=== PATIENT | male | born 1965 | race Caucasian/White ===

== ENCOUNTER 2017-06-22 08:49 | Inpatient (IN) | payer OTHER ==
[2017-06-22 11:16] VITALS: BMI 29.7
--- NOTE | 2017-06-22 12:04 | HP ---
CIWA Score - CIWA Score Nausea/Vomitin Muscle Tremors: 3 Anxiety: 3 Agitation: 2 Paroxysmal Sweats: 1-Minimal Palms Moist Orientation: 0-Oriented Tacttile Disturbances: 2-Mild Itch/Numbness/Burn Auditory Disturbances: 2-Mild Harshness/Frighten Visual Disturbances: 1-Very Mild Sensitivity Headache: 2-Mild CIWA-Ar Total Score: 19 Admission ROS BHS - HPI Chief Complaint: i need help stop drinking alcohol and cocaine Allergies/Adverse Reactions: Allergies Allergy/AdvReac Type Severity Reaction Status Date / Time Fish Containing Products Allergy Severe Swelling Verified 06/22/17 11:27 fluphenazine enanthate Allergy Severe Rash Verified 06/22/17 11:27 [From Prolixin] fluphenazine HCl Allergy Severe Rash Verified 06/22/17 11:27 [From Prolixin] Penicillins Allergy Severe Swelling Verified 06/22/17 11:27 History of Present Illness: this 51 years old male with alcohol and cocaine dependence,seeking detox,never been in detox before seizure last 2 weeks ago multiple medical problem ,iddm,hypercholesterolemia,hypothyroidism,ulcer of right foot for 3 months schizophrenia laceration of right wrist with ulnar nerve and tendon injury Exam Limitations: No Limitations - Ebola screening Have you traveled outside of the country in the last 21 days: No Have you had contact with anyone from an Ebola affected area: No Have you been sick,other than usual withdrawal symptoms: No - Review of Systems Constitutional: Chills, Loss of Appetite, Malaise, Night Sweats, Changes in sleep, Weakness EENT: reports: No Symptoms Reported, Nose Congestion Respiratory: reports: No Symptoms reported Cardiac: reports: No Symptoms Reported GI: reports: Diarrhea, Nausea, Vomiting, Abdominal cramping : reports: No Symptoms Reported Musculoskeletal: reports: Back Pain, Muscle Pain Integumentary: reports: Dryness, Other (ulcer of right foot for 3 months) Neuro: reports: Headache, Tremors Endocrine: reports: No Symptoms Reported Hematology: reports: No Symptoms Reported Psychiatric: reports: No Sypmtoms Reported, Judgement Intact, Mood/Affect Appropiate, Orientated x3, other (schizophrenia) Patient History - Patient Medical History Hx Anemia: No Hx Asthma: No Hx Chronic Obstructive Pulmonary Disease (COPD): No Hx Cancer: No Hx Cardiac Disorders: No Hx Congestive Heart Failure: No Hx Hypertension: Yes (non compliant with meds.) Hx Hypercholesterolemia: Yes (no medication) Hx Seizures: No Hx Diabetes: Yes (IDDM) Hx Gastrointestinal Disorders: No Hx Liver Disease: No Hx Genitourinary Disorders: No Hx Sexually Transmitted Disorders: No Hx Renal Disease (ESRD): No Hx Thyroid Disease: Yes (hypothyroidism non compliance) Hx Hepatitis C: No Hx Depression: Yes Hx Suicide Attempt: Yes (Pt tried to cut his wrist in 2014) Hx Bipolar Disorder: No Hx Schizophrenia: No Other Medical History: no suicidal,no homicidal,laceration of right wrist with tendon and ulnar n - Patient Surgical History Past Surgical History: Yes Other Surgical History: R wrist tendon repair in 2014. - PPD History Previous Implant?: Yes Documented Results: Negative w/o proof Implanted On Prior [facility] Admission?: No - Smoking Cessation Smoking history: Current every day smoker Have you smoked in the past 12 months: Yes Aproximately how many cigarettes per day: 30 Hx Chewing Tobacco Use: No Initiated information on smoking cessation: Yes 'Breaking Loose' booklet given: 06/22/17 - Substance & Tx. History Hx Alcohol Use: Yes Hx Substance Use: Yes Substance Use Type: Alcohol, Cocaine Hx Substance Use Treatment: No - Substances Abused Alcohol Route: Oral Frequency: Daily Amount used: 2-3 pints/ 10-12 beers Age of first use: 16 Date of Last Use: 06/22/17 Cocaine Route: Smoking Frequency: Daily Amount used: $30-40 Age of first use: 16 Date of Last Use: 06/20/17 Family Disease History - Family Disease History Family History: Denies Admission Physical Exam S - Vital Signs Vital Signs: Vital Signs - 24 hr 06/22/17 06/22/17 10:37 11:13 Temperature 97.5 F L 97.7 F Pulse Rate 76 104 H Respiratory 16 18 Rate Blood Pressure 140/72 152/90 - Physical General Appearance: Yes: Moderate Distress, Tremorous, Irritable, Sweating HEENTM: Yes: Normal ENT Inspection, JEANNETTE, Pharynx Normal Respiratory: Yes: Lungs Clear, Normal Breath Sounds, No Respiratory Distress Neck: Yes: Within Normal Limits, Supple, Trachea in good position Breast: Yes: Within Normal Limits Cardiology: Yes: Within Normal Limits, Regular Rhythm, Regular Rate, S1, S2 Abdominal: Yes: Within Normal Limits, Normal Bowel Sounds, Non Tender, Flat, Soft Genitourinary: Yes: Within Normal Limits Back: Yes: Muscle Spasm Musculoskeletal: Yes: Back pain, Muscle Pain Extremities: Yes: Within Normal Limits, Normal Range of Motion, Tremors, Other ( ulcer of right foot size 0.5 cm scar of right wrist and numbnees of right 4th and 5th digit) Neurological: Yes: insurance plan specialist II-XII NML intact, Alert, Motor Strength 5/5 Integumentary: Yes: Dry - Diagnostic (1) Alcohol dependence with uncomplicated withdrawal Current Visit: Yes Status: Acute (2) Cocaine dependence Current Visit: Yes Status: Acute (3) IDDM (insulin dependent diabetes mellitus) Current Visit: Yes Status: Chronic (4) Hypertension Current Visit: Yes Status: Chronic (5) Seizure Current Visit: Yes Status: Chronic (6) Hypercholesteremia Current Visit: Yes Status: Acute (7) Ulcer of right foot Current Visit: Yes Status: Chronic (8) Schizophrenia Current Visit: Yes Status: Chronic (9) Laceration of right wrist Current Visit: Yes Status: Acute Cleared for Admission [facility] - Detox or Rehab [facility] Level of Care: Medically Managed Detox Regimen/Protocol: Librium [facility] Breath Alcohol Content Breath Alcohol Content: 0.027 Urine Drug Screen - Results Drug Screen Negative: Yes Urine Drug Screen Results: OCTAVIO-Cocaine
[2017-06-22] MEDS ORDERED: MAGNESIUM HYDROX 2400MG/30ML ORAL SUSPENSION 30 ML CUP PO PRN (12:20)
[2017-06-22] MEDS ORDERED: MAG HYDROX/AL HYDROX/SIMETH 30 ML UNIT-DOSE CUP PO PRN (12:20)
[2017-06-22] MEDS ORDERED: ACETAMINOPHEN 325 MG TABLET (FP) PO PRN (12:20)
[2017-06-22] MEDS ORDERED: hydrOXYzine PAMOATE 50 MG CAPSULE (FP) PO PRN (12:20)
[2017-06-22] MEDS ORDERED: LOPERAMIDE HCL 2 MG CAPSULE PO PRN (12:20)
[2017-06-22] MEDS ORDERED: chlordiazePOXIDE HCL 25 MG CAPSULE PO PRN (12:20)
[2017-06-22] MEDS ORDERED: MENTHOL/PHENOL 1 EACH UD MM PRN (12:20)
[2017-06-22] MEDS ORDERED: NICOTINE POLACRILEX 2 MG GUM BUC PRN (12:20)
[2017-06-22] MEDS ORDERED: diphenhydrAMINE HCL 50 MG CAPSULE PO PRN (12:20)
[2017-06-22] MEDS ORDERED: MAGNESIUM CITRATE 300 ML BOTTLE PO PRN (12:20)
[2017-06-22] MEDS ORDERED: P-EPHED 60MG/TRIPROLIDI 2.5MG TABLET PO PRN (12:20)
[2017-06-22] MEDS ORDERED: IBUPROFEN 400 MG TABLET (FP) PO PRN (12:20)
[2017-06-22] MEDS ORDERED: guaiFENesin/D-METHORPHAN HB 10 ML UNIT-DOSE CUPS PO PRN (12:20)
[2017-06-22] MEDS ORDERED: chlordiazePOXIDE HCL 25 MG CAPSULE PO ONE (12:50)
[2017-06-22] MEDS: ENALAPRIL MALEATE 10 MG TABLET (FP) PO SCH (13:38)
[2017-06-22] MEDS: LEVOTHYROXINE NA 25 MCG TABLET (FP) PO SCH (13:39)
[2017-06-22] MEDS: BACITRACIN 0.9 GM PACKET TP SCH ×2 (13:39→22:56)
[2017-06-22] MEDS: NICOTINE 21 MG/24 HOURS TOPICAL PATCH TD SCH (13:40)
[2017-06-22] MEDS: chlordiazePOXIDE HCL 25 MG CAPSULE PO SCH ×2 (18:24→22:57)
[2017-06-22] MEDS: INSULIN SLIDING SCALE (NOVOLOG) 1 VIAL SQ SCH ×2 (18:25→22:58)
[2017-06-22] MEDS: THIAMINE HCL 100 MG TABLET (FP) PO SCH (22:57)
[2017-06-22] MEDS: DIVALPROEX SODIUM 500 MG TABLET E.C. PO SCH (22:57)
[2017-06-22] MEDS: INSULIN DETEMIR 100 UNITS/ML MDV SQ SCH (22:59)
[2017-06-22] MEDS ORDERED: INSULIN (NOVOLOG) ASPART 100 UNITS/ML 10ML VIAL ONE (22:59)
[2017-06-23 00:04] LABS: URINE APPEARANCE SLCLOUDY; URINE BILIRUBIN NEGATIVE (NEGATIVE); URINE BLOOD NEGATIVE (NEGATIVE); URINE COLOR YELLOW; URINE GLUCOSE (UA) 1+ (NEGATIVE); URINE KETONE NEGATIVE (NEGATIVE); URINE NITRITE NEGATIVE (NEGATIVE); URINE PROTEIN NEGATIVE (NEGATIVE); URINE UROBILINOGEN NEGATIVE mg/dL (0.2-1.0)
[2017-06-23] MEDS: LEVOTHYROXINE NA 25 MCG TABLET (FP) PO SCH (06:14)
[2017-06-23] MEDS: chlordiazePOXIDE HCL 25 MG CAPSULE PO SCH ×4 (06:15→22:54)
[2017-06-23] MEDS ORDERED: INSULIN (NOVOLOG) ASPART 100 UNITS/ML 10ML VIAL ONE ×3 (08:31→16:56)
[2017-06-23] MEDS: INSULIN SLIDING SCALE (NOVOLOG) 1 VIAL SQ SCH ×4 (08:35→22:55)
[2017-06-23 10:28] LABS: MCH 28.8 pg (25.7-33.7); MCHC 32.4 g/dl (32.0-35.9); MEAN CELL VOLUME 88.9 fl (80-96); MEAN PLT VOLUME 7.9 fl (7.5-11.1); PLATELET COUNT 252 K/MM3 (134-434); WHITE BLOOD COUNT 11.8 K/mm3 (4.0-10.0)
[2017-06-23 10:51] LABS: ALBUMIN 3.1 g/dl (3.4-5.0); ALK PHOS 105 U/L (45-117); ANION GAP 8 (8-16); BILIRUBIN,TOTAL 0.2 mg/dL (0.2-1.0); CALCIUM 8.1 mg/dL (8.5-10.1); CO2 28 mmol/L (21-32); CREATININE 0.8 mg/dL (0.7-1.3); GLUCOSE,RANDOM 203 mg/dL (74-106); SGOT/AST 12 U/L (15-37); SGPT/ALT 38 U/L (12-78); THYROID STIMULATING HORMONE 1.18 uIU/ml (0.358-3.74); TOT PROT 6.9 g/dl (6.4-8.2)
[2017-06-23] MEDS: BACITRACIN 0.9 GM PACKET TP SCH ×2 (10:59→22:53)
[2017-06-23] MEDS: NICOTINE 21 MG/24 HOURS TOPICAL PATCH TD SCH (10:59)
[2017-06-23] MEDS: PRENATAL VITAMINS W/ FOLIC ACID TABLET (FP) PO SCH (11:00)
[2017-06-23] MEDS: ENALAPRIL MALEATE 10 MG TABLET (FP) PO SCH (11:00)
[2017-06-23] MEDS: DIVALPROEX SODIUM 500 MG TABLET E.C. PO SCH ×2 (11:03→22:54)
[2017-06-23 11:51] LABS: URINE LEUK ESTERASE Negative (NEGATIVE)
[2017-06-23] MEDS ORDERED: ONDANSETRON *ODT* 4 MG TABLET SL PRN (11:52)
--- NOTE | 2017-06-23 12:11 | CONSULT ---
[facility] Psychiatric Consult - Data Date of interview: 06/23/17 Admission source: [facility] Identifying data: First admission to [facility] for this 51 y/o male seeking detox treatment on for alcohol and cocaine dependence.Patient is single,a father of one,homeless,unemployed and supported on SSI benefits. Substance Abuse History: Confirmed by patient in this session. Smoking Cessation. Smoking history: Current every day smoker. Have you smoked in the past 12 months: Yes. Aproximately how many cigarettes per day: 30. Hx Chewing Tobacco Use: No. Initiated information on smoking cessation: Yes. 'Breaking Loose' booklet given: 06/22/17. - Substance & Tx. History. Hx Alcohol Use: Yes. Hx Substance Use: Yes. Substance Use Type: Alcohol, Cocaine. Hx Substance Use Treatment: No. - Substances Abused. Alcohol. Route: Oral. Frequency: Daily. Amount used: 2-3 pints/ 10-12 beers. Age of first use: 16. Date of Last Use: 06/22/17. Cocaine. Route: Smoking. Frequency: Daily. Amount used: $30-40. Age of first use: 16. Date of Last Use: 06/20/17 Medical History: Several co-morbidities : GERD,seizure disorder,hypothyroidism, diabetes mellitus,injury to right ulnar nerve (from a suicide attempt in 2014), hypertension,hypercholesterolemia,hearing impediment and chronic foot ulcer ( right fooot). Psychiatric History: Diagnosed with Paranoid Schizophrenia.Medicated with seroquel 200 mg/hs + zoloft and trazodone (doses not recalled by the patient) .Past psychiatric hospitalizations mostly in the state of [place] as per self - report.Mr Richey indicates that he sees a psychiatrist " at a clinic in [place] ".Unable to remember the name of facility.Patient aknowledges a series of suicide attempts through various means (hanging,wrist-cutting,jumping off of a third floor window). Physical/Sexual Abuse/Trauma History: No reported history of abuse. Additional Comment: Urine Drug Screen Results: OCTAVIO-Cocaine.Noted. Mental Status Exam - Mental Status Exam Alert and Oriented to: Time, Place, Person Cognitive Function: Grossly Intact Patient Appearance: Disheveled (covered with tattoos) Mood: Nervous, Withdrawn, Anxious Affect: Mood Congruent Patient Behavior: Sedated (mildly sedated but totally able to provide personal history), Fatigued Speech Pattern: Slurred (but coherent and relevant) Voice Loudness: Normal Thought Process: Goal Oriented Thought Disorder: Not Present Hallucinations: Denies Suicidal Ideation: Denies Homicidal Ideation: Denies Insight/Judgement: Poor Sleep: Poorly, Difficulty falling asleep Appetite: Good Gait/Station: Other (not observed : patient in bed for the entirety of encounter ) Psychiatric Findings - Problem List ([place] 1, 2,3) (1) Schizophrenia Current Visit: Yes Status: Chronic (2) Alcohol dependence with uncomplicated withdrawal Current Visit: Yes Status: Acute (3) Cocaine dependence Current Visit: Yes Status: Acute (4) Nicotine dependence Current Visit: Yes Status: Acute (5) Hypercholesteremia Current Visit: Yes Status: Acute (6) Hypertension Current Visit: Yes Status: Chronic (7) IDDM (insulin dependent diabetes mellitus) Current Visit: Yes Status: Chronic (8) Laceration of right wrist Current Visit: Yes Status: Acute (9) Seizure Current Visit: Yes Status: Chronic (10) Ulcer of right foot Current Visit: Yes Status: Chronic (11) Insomnia Current Visit: Yes Status: Acute - Initial Treatment Plan Initial Treatment Plan: Psychoeducation.Detoxification.Medications : seroquel 100 mg po bid + zoloft 50 mg po daily.Side effects/benefits discussed with the patient.Mr Richey agrees with this careplan.Observation.
--- NOTE | 2017-06-23 15:58 | PN ---
S CIWA - CIWA Score Nausea/Vomitin Muscle Tremors: 4-Moderate,w/Arms Extend Anxiety: 3 Agitation: 0-Normal Activity Paroxysmal Sweats: 3 Orientation: 2-Disoriented Date<2 days Tacttile Disturbances: 0-None Auditory Disturbances: 0-None Visual Disturbances: 0-None Headache: 4-Moderately Severe CIWA-Ar Total Score: 19 BHS Progress Note (SOAP) Subjective: Tremors, Anxious, Sweating, H/A, Body Aches, Interrupted sleep, Diarrhea, Nausea , Stomach Cramping. Objective: PT. A & OX 2 (DISORIENTED ABOUT DAY / DATE). NO ACUTE DISTRESS. 06/23/17 15:59 Vital Signs Temperature 98.8 F 06/23/17 13:30 Pulse Rate 86 06/23/17 13:30 Respiratory Rate 16 06/23/17 13:30 Blood Pressure 144/77 06/23/17 13:30 O2 Sat by Pulse Oximetry (%) Laboratory Tests 06/22/17 06/22/17 06/22/17 11:44 16:30 21:05 WBC RBC Hgb Hct MCV MCH MCHC RDW Plt Count MPV Sodium Potassium Chloride Carbon Dioxide Anion Gap BUN Creatinine Creat Clearance w eGFR POC Glucometer 304 126 156 Random Glucose Calcium Total Bilirubin AST ALT Alkaline Phosphatase Total Protein Albumin TSH Urine Color Urine Appearance Urine pH Ur Specific [place] Urine Protein Urine Glucose (UA) Urine Ketones Urine Blood Urine Nitrite Urine Bilirubin Urine Urobilinogen Ur Leukocyte Esterase RPR Titer 06/22/17 06/23/17 06/23/17 23:20 06:14 08:00 WBC 11.8 H RBC 4.92 Hgb 14.2 Hct 43.7 MCV 88.9 MCH 28.8 MCHC 32.4 RDW 15.0 Plt Count 252 MPV 7.9 Sodium Potassium Chloride Carbon Dioxide Anion Gap BUN Creatinine Creat Clearance w eGFR POC Glucometer 178 Random Glucose Calcium Total Bilirubin AST ALT Alkaline Phosphatase Total Protein Albumin TSH Urine Color Yellow Urine Appearance Slcloudy Urine pH 5.0 Ur Specific [place] >= 1.030 H Urine Protein Negative Urine Glucose (UA) 1+ H Urine Ketones Negative Urine Blood Negative Urine Nitrite Negative Urine Bilirubin Negative Urine Urobilinogen Negative Ur Leukocyte Esterase Negative RPR Titer 06/23/17 06/23/17 06/23/17 08:00 08:00 11:04 WBC RBC Hgb Hct MCV MCH MCHC RDW Plt Count MPV Sodium 139 Potassium 4.0 Chloride 103 Carbon Dioxide 28 Anion Gap 8 BUN 14 Creatinine 0.8 Creat Clearance w eGFR > 60 POC Glucometer 207 Random Glucose 203 H Calcium 8.1 L Total Bilirubin 0.2 AST 12 L ALT 38 Alkaline Phosphatase 105 Total Protein 6.9 Albumin 3.1 L TSH 1.18 Urine Color Urine Appearance Urine pH Ur Specific [place] Urine Protein Urine Glucose (UA) Urine Ketones Urine Blood Urine Nitrite Urine Bilirubin Urine Urobilinogen Ur Leukocyte Esterase RPR Titer Nonreactive LABS NOTED. Assessment: 06/23/17 16:01 WITHDRAWAL SYMPTOMS. Plan: CONTINUE DETOX. INCREASE DAILY PO FLUID INTAKE.
[2017-06-23] MEDS: THIAMINE HCL 100 MG TABLET (FP) PO SCH (22:53)
[2017-06-23] MEDS: QUEtiapine FUMARATE 100 MG TABLET (FP) PO SCH (22:54)
[2017-06-23] MEDS: INSULIN DETEMIR 100 UNITS/ML MDV SQ SCH (22:55)
[2017-06-24] MEDS: chlordiazePOXIDE HCL 25 MG CAPSULE PO SCH ×2 (07:38→10:49)
[2017-06-24] MEDS: LEVOTHYROXINE NA 25 MCG TABLET (FP) PO SCH (07:39)
[2017-06-24] MEDS ORDERED: INSULIN (NOVOLOG) ASPART 100 UNITS/ML 10ML VIAL ONE ×4 (08:15→22:34)
[2017-06-24] MEDS: INSULIN SLIDING SCALE (NOVOLOG) 1 VIAL SQ SCH ×4 (08:21→22:33)
[2017-06-24] MEDS: DIVALPROEX SODIUM 500 MG TABLET E.C. PO SCH ×2 (10:47→22:32)
[2017-06-24] MEDS: PRENATAL VITAMINS W/ FOLIC ACID TABLET (FP) PO SCH (10:47)
[2017-06-24] MEDS: SERTRALINE HCL 50 MG TABLET (FP) PO SCH (10:47)
[2017-06-24] MEDS: ENALAPRIL MALEATE 10 MG TABLET (FP) PO SCH (10:47)
[2017-06-24] MEDS: QUEtiapine FUMARATE 100 MG TABLET (FP) PO SCH ×2 (10:47→22:32)
[2017-06-24] MEDS: NICOTINE 21 MG/24 HOURS TOPICAL PATCH TD SCH (10:47)
[2017-06-24] MEDS: BACITRACIN 0.9 GM PACKET TP SCH ×2 (10:49→22:32)
[2017-06-24] MEDS: chlordiazePOXIDE 5 MG CAPSULE PO SCH ×2 (17:22→22:32)
--- NOTE | 2017-06-24 17:34 | EKG ---
Test Reason : Blood Pressure : / mmHG Vent. Rate : 086 BPM Atrial Rate : 086 BPM P-R Int : 138 ms QRS Dur : 080 ms QT Int : 386 ms P-R-T Axes : 052 -49 008 degrees QTc Int : 461 ms NORMAL SINUS RHYTHM LEFT ANTERIOR FASCICULAR BLOCK ABNORMAL ECG NO PREVIOUS ECGS AVAILABLE REPEAT EKG IF CLINICALLY INDICATED Confirmed by NAYA INNO MD ([id number]) on 06/24/2017 5:34:05 PM Referred By: Confirmed By:NAYA NINO MD
--- NOTE | 2017-06-24 17:34 | PN ---
[facility] CIWA - CIWA Score Nausea/Vomitin-No Nausea/No Vomiting Muscle Tremors: 3 Anxiety: 4-Mod. Anxious/Guarded Agitation: 3 Paroxysmal Sweats: 3 Orientation: 0-Oriented Tacttile Disturbances: 0-None Auditory Disturbances: 0-None Visual Disturbances: 0-None Headache: 0-None Present CIWA-Ar Total Score: 13 BHS Progress Note (SOAP) Subjective: Anxiety,tremors,sweating,interrupted sleep,restless. Objective: 06/24/17 17:33 Vital Signs - 8 hr 06/24/17 13:24 Temperature 97.0 F L Pulse Rate 91 H Respiratory 20 Rate Blood Pressure 128/70 Laboratory Tests 06/22/17 06/22/17 06/22/17 11:44 16:30 21:05 WBC RBC Hgb Hct MCV MCH MCHC RDW Plt Count MPV Sodium Potassium Chloride Carbon Dioxide Anion Gap BUN Creatinine Creat Clearance w eGFR POC Glucometer 304 126 156 Random Glucose Calcium Total Bilirubin AST ALT Alkaline Phosphatase Total Protein Albumin TSH Urine Color Urine Appearance Urine pH Ur Specific [place] Urine Protein Urine Glucose (UA) Urine Ketones Urine Blood Urine Nitrite Urine Bilirubin Urine Urobilinogen Ur Leukocyte Esterase RPR Titer 06/22/17 06/23/17 06/23/17 23:20 06:14 08:00 WBC 11.8 H RBC 4.92 Hgb 14.2 Hct 43.7 MCV 88.9 MCH 28.8 MCHC 32.4 RDW 15.0 Plt Count 252 MPV 7.9 Sodium Potassium Chloride Carbon Dioxide Anion Gap BUN Creatinine Creat Clearance w eGFR POC Glucometer 178 Random Glucose Calcium Total Bilirubin AST ALT Alkaline Phosphatase Total Protein Albumin TSH Urine Color Yellow Urine Appearance Slcloudy Urine pH 5.0 Ur Specific [place] >= 1.030 H Urine Protein Negative Urine Glucose (UA) 1+ H Urine Ketones Negative Urine Blood Negative Urine Nitrite Negative Urine Bilirubin Negative Urine Urobilinogen Negative Ur Leukocyte Esterase Negative RPR Titer 06/23/17 06/23/17 06/23/17 08:00 08:00 11:04 WBC RBC Hgb Hct MCV MCH MCHC RDW Plt Count MPV Sodium 139 Potassium 4.0 Chloride 103 Carbon Dioxide 28 Anion Gap 8 BUN 14 Creatinine 0.8 Creat Clearance w eGFR > 60 POC Glucometer 207 Random Glucose 203 H Calcium 8.1 L Total Bilirubin 0.2 AST 12 L ALT 38 Alkaline Phosphatase 105 Total Protein 6.9 Albumin 3.1 L TSH 1.18 Urine Color Urine Appearance Urine pH Ur Specific [place] Urine Protein Urine Glucose (UA) Urine Ketones Urine Blood Urine Nitrite Urine Bilirubin Urine Urobilinogen Ur Leukocyte Esterase RPR Titer Nonreactive 06/23/17 06/23/17 06/24/17 16:42 21:48 05:53 WBC RBC Hgb Hct MCV MCH MCHC RDW Plt Count MPV Sodium Potassium Chloride Carbon Dioxide Anion Gap BUN Creatinine Creat Clearance w eGFR POC Glucometer 243 238 235 Random Glucose Calcium Total Bilirubin AST ALT Alkaline Phosphatase Total Protein Albumin TSH Urine Color Urine Appearance Urine pH Ur Specific [place] Urine Protein Urine Glucose (UA) Urine Ketones Urine Blood Urine Nitrite Urine Bilirubin Urine Urobilinogen Ur Leukocyte Esterase RPR Titer 06/24/17 06/24/17 11:29 16:34 WBC RBC Hgb Hct MCV MCH MCHC RDW Plt Count MPV Sodium Potassium Chloride Carbon Dioxide Anion Gap BUN Creatinine Creat Clearance w eGFR POC Glucometer 278 249 Random Glucose Calcium Total Bilirubin AST ALT Alkaline Phosphatase Total Protein Albumin TSH Urine Color Urine Appearance Urine pH Ur Specific [place] Urine Protein Urine Glucose (UA) Urine Ketones Urine Blood Urine Nitrite Urine Bilirubin Urine Urobilinogen Ur Leukocyte Esterase RPR Titer labs noted Assessment: 06/24/17 17:34 Withdrawal sx. Plan: Continue detox
[2017-06-24] MEDS: THIAMINE HCL 100 MG TABLET (FP) PO SCH (22:32)
[2017-06-24] MEDS: INSULIN DETEMIR 100 UNITS/ML MDV SQ SCH (22:33)
[2017-06-25] MEDS: LEVOTHYROXINE NA 25 MCG TABLET (FP) PO SCH (06:07)
[2017-06-25] MEDS: chlordiazePOXIDE 5 MG CAPSULE PO SCH ×2 (06:28→10:33)
[2017-06-25] MEDS: INSULIN SLIDING SCALE (NOVOLOG) 1 VIAL SQ SCH ×4 (07:54→22:20)
[2017-06-25] MEDS: PRENATAL VITAMINS W/ FOLIC ACID TABLET (FP) PO SCH (10:31)
[2017-06-25] MEDS: QUEtiapine FUMARATE 100 MG TABLET (FP) PO SCH ×2 (10:31→22:20)
[2017-06-25] MEDS: DIVALPROEX SODIUM 500 MG TABLET E.C. PO SCH ×2 (10:31→22:20)
[2017-06-25] MEDS: ENALAPRIL MALEATE 10 MG TABLET (FP) PO SCH (10:31)
[2017-06-25] MEDS: SERTRALINE HCL 50 MG TABLET (FP) PO SCH (10:31)
[2017-06-25] MEDS: NICOTINE 21 MG/24 HOURS TOPICAL PATCH TD SCH (10:32)
[2017-06-25] MEDS: BACITRACIN 0.9 GM PACKET TP SCH ×2 (10:33→22:19)
--- NOTE | 2017-06-25 11:16 | PN ---
BHS Progress Note (SOAP) Subjective: nausea, sweats, interrupted sleep, anxiety, tremors Objective: 06/25/17 11:15 Vital Signs - 8 hr 06/25/17 06/25/17 06/25/17 03:31 06:22 10:38 Temperature 96.5 F L 98.6 F Pulse Rate 91 H 80 Respiratory 18 18 20 Rate Blood Pressure 125/81 118/73 Laboratory Tests 06/22/17 06/22/17 06/22/17 11:44 16:30 21:05 WBC RBC Hgb Hct MCV MCH MCHC RDW Plt Count MPV Sodium Potassium Chloride Carbon Dioxide Anion Gap BUN Creatinine Creat Clearance w eGFR POC Glucometer 304 126 156 Random Glucose Calcium Total Bilirubin AST ALT Alkaline Phosphatase Total Protein Albumin TSH Urine Color Urine Appearance Urine pH Ur Specific [place] Urine Protein Urine Glucose (UA) Urine Ketones Urine Blood Urine Nitrite Urine Bilirubin Urine Urobilinogen Ur Leukocyte Esterase RPR Titer 06/22/17 06/23/17 06/23/17 23:20 06:14 08:00 WBC 11.8 H RBC 4.92 Hgb 14.2 Hct 43.7 MCV 88.9 MCH 28.8 MCHC 32.4 RDW 15.0 Plt Count 252 MPV 7.9 Sodium Potassium Chloride Carbon Dioxide Anion Gap BUN Creatinine Creat Clearance w eGFR POC Glucometer 178 Random Glucose Calcium Total Bilirubin AST ALT Alkaline Phosphatase Total Protein Albumin TSH Urine Color Yellow Urine Appearance Slcloudy Urine pH 5.0 Ur Specific [place] >= 1.030 H Urine Protein Negative Urine Glucose (UA) 1+ H Urine Ketones Negative Urine Blood Negative Urine Nitrite Negative Urine Bilirubin Negative Urine Urobilinogen Negative Ur Leukocyte Esterase Negative RPR Titer 06/23/17 06/23/17 06/23/17 08:00 08:00 11:04 WBC RBC Hgb Hct MCV MCH MCHC RDW Plt Count MPV Sodium 139 Potassium 4.0 Chloride 103 Carbon Dioxide 28 Anion Gap 8 BUN 14 Creatinine 0.8 Creat Clearance w eGFR > 60 POC Glucometer 207 Random Glucose 203 H Calcium 8.1 L Total Bilirubin 0.2 AST 12 L ALT 38 Alkaline Phosphatase 105 Total Protein 6.9 Albumin 3.1 L TSH 1.18 Urine Color Urine Appearance Urine pH Ur Specific [place] Urine Protein Urine Glucose (UA) Urine Ketones Urine Blood Urine Nitrite Urine Bilirubin Urine Urobilinogen Ur Leukocyte Esterase RPR Titer Nonreactive 06/23/17 06/23/17 06/24/17 16:42 21:48 05:53 WBC RBC Hgb Hct MCV MCH MCHC RDW Plt Count MPV Sodium Potassium Chloride Carbon Dioxide Anion Gap BUN Creatinine Creat Clearance w eGFR POC Glucometer 243 238 235 Random Glucose Calcium Total Bilirubin AST ALT Alkaline Phosphatase Total Protein Albumin TSH Urine Color Urine Appearance Urine pH Ur Specific [place] Urine Protein Urine Glucose (UA) Urine Ketones Urine Blood Urine Nitrite Urine Bilirubin Urine Urobilinogen Ur Leukocyte Esterase RPR Titer 06/24/17 06/24/17 06/24/17 11:29 16:34 20:21 WBC RBC Hgb Hct MCV MCH MCHC RDW Plt Count MPV Sodium Potassium Chloride Carbon Dioxide Anion Gap BUN Creatinine Creat Clearance w eGFR POC Glucometer 278 249 364 Random Glucose Calcium Total Bilirubin AST ALT Alkaline Phosphatase Total Protein Albumin TSH Urine Color Urine Appearance Urine pH Ur Specific [place] Urine Protein Urine Glucose (UA) Urine Ketones Urine Blood Urine Nitrite Urine Bilirubin Urine Urobilinogen Ur Leukocyte Esterase RPR Titer 06/25/17 06:07 WBC RBC Hgb Hct MCV MCH MCHC RDW Plt Count MPV Sodium Potassium Chloride Carbon Dioxide Anion Gap BUN Creatinine Creat Clearance w eGFR POC Glucometer 185 Random Glucose Calcium Total Bilirubin AST ALT Alkaline Phosphatase Total Protein Albumin TSH Urine Color Urine Appearance Urine pH Ur Specific [place] Urine Protein Urine Glucose (UA) Urine Ketones Urine Blood Urine Nitrite Urine Bilirubin Urine Urobilinogen Ur Leukocyte Esterase RPR Titer Assessment: 06/25/17 11:15 withdrawal sx Plan: cont detox, fluids, encourage ambulation
[2017-06-25] MEDS ORDERED: INSULIN (NOVOLOG) ASPART 100 UNITS/ML 10ML VIAL ONE ×3 (11:20→21:25)
[2017-06-25] MEDS: chlordiazePOXIDE HCL 10 MG CAPSULE PO SCH ×2 (17:40→22:19)
[2017-06-25] MEDS: THIAMINE HCL 100 MG TABLET (FP) PO SCH (22:19)
[2017-06-25] MEDS: INSULIN DETEMIR 100 UNITS/ML MDV SQ SCH (22:20)
[2017-06-26] MEDS: chlordiazePOXIDE HCL 10 MG CAPSULE PO SCH (05:56)
[2017-06-26] MEDS: LEVOTHYROXINE NA 25 MCG TABLET (FP) PO SCH (07:09)
[2017-06-26] MEDS ORDERED: INSULIN (NOVOLOG) ASPART 100 UNITS/ML 10ML VIAL ONE (08:48)
[2017-06-26] MEDS: INSULIN SLIDING SCALE (NOVOLOG) 1 VIAL SQ SCH (08:55)
[2017-06-26 09:58] VITALS: BP 127/67; PULSE 85; TEMP 97.6
--- NOTE | 2017-06-26 14:09 | DS ---
[facility] Detox Discharge Summary Admission Date: 06/22/17 Discharge Date: 06/26/17 - History Present History: Alcohol Dependence, Cocaine Dependence Additional Comments: DETOX COMPLETED. ALERT O X 3. PT IS VERY NONCOMPLIANT WITH HIS MEDICAL CARE STATING THAT HE LOST ALL HIS MEDICATIONS AND HAS NO PRIMARY DOCTOR AT THIS TIME. HIS ADMISSION HOME MEDICATIONS INDICATED HE LAST TOOK HIS MEDS ON THE DAY OF ADMISSION. PATIENT APPEARS TO BE A POOR HISTORIAN. STATES HE CAME FROM [place] WITH HIS CARE RECEIVED AT [place], [place]. STATES "I' M GOING BACK TO [place] SOON". PT WAS GIVE RX FOR HTN AND DM AND THYROID X 30 DAYS TO ENABLE HIM FIND A PCP NEAR HIM PREFERABLY [facility]. Pertinent Past History: HYPERCHOLESTEROLEMIA HTN DM SEIZURE HX HYPOTHYROIDISM - Physical Exam Results Vital Signs: Vital Signs Temperature 97.6 F 06/26/17 09:57 Pulse Rate 85 06/26/17 09:57 Respiratory Rate 18 06/26/17 09:57 Blood Pressure 127/67 06/26/17 09:57 O2 Sat by Pulse Oximetry (%) Pertinent Admission Physical Exam Findings: WITHDRAWAL SX Laboratory Last Values WBC 11.8 K/mm3 (4.0-10.0) H 06/23/17 08:00 RBC 4.92 M/mm3 (4.00-5.60) 06/23/17 08:00 Hgb 14.2 GM/dL (11.7-16.9) 06/23/17 08:00 Hct 43.7 % (35.4-49) 06/23/17 08:00 MCV 88.9 fl (80-96) 06/23/17 08:00 MCH 28.8 pg (25.7-33.7) 06/23/17 08:00 MCHC 32.4 g/dl (32.0-35.9) 06/23/17 08:00 RDW 15.0 % (11.9-15.9) 06/23/17 08:00 Plt Count 252 K/MM3 (134-434) 06/23/17 08:00 MPV 7.9 fl (7.5-11.1) 06/23/17 08:00 Sodium 139 mmol/L (136-145) 06/23/17 08:00 Potassium 4.0 mmol/L (3.5-5.1) 06/23/17 08:00 Chloride 103 mmol/L (98-107) 06/23/17 08:00 Carbon Dioxide 28 mmol/L (21-32) 06/23/17 08:00 Anion Gap 8 (8-16) 06/23/17 08:00 BUN 14 mg/dL (7-18) 06/23/17 08:00 Creatinine 0.8 mg/dL (0.7-1.3) 06/23/17 08:00 Creat Clearance w eGFR > 60 (>60) 06/23/17 08:00 POC Glucometer 243 UNITS (()) 06/26/17 05:59 Random Glucose 203 mg/dL (74-106) H 06/23/17 08:00 Calcium 8.1 mg/dL (8.5-10.1) L 06/23/17 08:00 Total Bilirubin 0.2 mg/dL (0.2-1.0) 06/23/17 08:00 AST 12 U/L (15-37) L 06/23/17 08:00 ALT 38 U/L (12-78) 06/23/17 08:00 Alkaline Phosphatase 105 U/L (45-117) 06/23/17 08:00 Total Protein 6.9 g/dl (6.4-8.2) 06/23/17 08:00 Albumin 3.1 g/dl (3.4-5.0) L 06/23/17 08:00 TSH 1.18 uIU/ml (0.358-3.74) 06/23/17 08:00 Urine Color Yellow 06/22/17 23:20 Urine Appearance Slcloudy 06/22/17 23:20 Urine pH 5.0 (5.0-8.0) 06/22/17 23:20 Ur Specific [place] >= 1.030 (1.005-1.025) H 06/22/17 23:20 Urine Protein Negative (NEGATIVE) 06/22/17 23:20 Urine Glucose (UA) 1+ (NEGATIVE) H 06/22/17 23:20 Urine Ketones Negative (NEGATIVE) 06/22/17 23:20 Urine Blood Negative (NEGATIVE) 06/22/17 23:20 Urine Nitrite Negative (NEGATIVE) 06/22/17 23:20 Urine Bilirubin Negative (NEGATIVE) 06/22/17 23:20 Urine Urobilinogen Negative mg/dL (0.2-1.0) 06/22/17 23:20 Ur Leukocyte Esterase Negative (NEGATIVE) 06/22/17 23:20 RPR Titer Nonreactive (NONREACTIVE) 06/23/17 08:00 - Treatment Hospital Course: Detox Protocol Followed, Detoxed Safely, Responded well, Discharged Condition Good, Rehab Referral Accepted Patient has Accepted a Rehab Referral to: [facility]/ - Medication Discharge Medications: Ambulatory Orders Divalproex [Depakote -] 500 mg PO BID 06/22/17 Insulin (Novolog) [Novolog Flexpen] 25 units SQ AC 06/22/17 Sertraline HCl [Zoloft -] 100 mg PO DAILY 06/22/17 Trazodone HCl [Desyrel -] 100 mg PO HS 06/22/17 Quetiapine Fumarate [Seroquel -] 200 mg PO HS #30 tab 06/23/17 Sertraline HCl [Zoloft] 100 mg PO DAILY #30 tablet 06/23/17 Enalapril Maleate [Vasotec] 20 mg PO DAILY #30 mg 06/26/17 Insulin (Levemir) [Levemir Flexpen -] 35 units SQ DAILY #1 units 06/26/17 Levothyroxine [Synthroid -] 25 mcg PO DAILY #30 mcg 06/26/17 - Diagnosis (1) Alcohol dependence with uncomplicated withdrawal Status: Acute (2) Cocaine dependence Status: Acute Qualifiers: Substance use status: uncomplicated Qualified Code(s): F14.20 - Cocaine dependence, uncomplicated; F14.20 - Cocaine dependence, uncomplicated; F14.20 - Cocaine dependence, uncomplicated (3) Nicotine dependence Status: Acute Qualifiers: Nicotine product type: cigarettes Substance use status: in withdrawal Qualified Code(s): F17.213 - Nicotine dependence, cigarettes, with withdrawal; F17.213 - Nicotine dependence, cigarettes, with withdrawal (4) Hypertension Status: Chronic Qualifiers: Hypertension type: essential hypertension Qualified Code(s): I10 - Essential (primary) hypertension; I10 - Essential (primary) hypertension; I10 - Essential (primary) hypertension (5) IDDM (insulin dependent diabetes mellitus) Status: Chronic (6) Seizure Status: Chronic (7) History of hypothyroidism Status: Chronic (8) Hypercholesteremia Status: Suspected - AMA Did Patient Leave Against Medical Advice: No
== END 2017-06-26 10:01 | disposition home or self-care (01) | DRG 774 ==
LOC: YASAS 08:49 → Y3N 12:04
PROVIDERS: ADMIT Internal Medicine; ATTEND Internal Medicine
PROC: HZ2ZZZZ Detoxification Services for Substance Abuse Treatment (ICD-10-PCS; principal; 2017-06-22)
DX: F10.230 Alcohol dependence with withdrawal, uncomplicated (principal); F14.20 Cocaine dependence, uncomplicated; F17.213 Nicotine dependence, cigarettes, with withdrawal; F20.9 Schizophrenia, unspecified; K21.9 Gastro-esophageal reflux disease without esophagitis; I10 Essential (primary) hypertension; E11.9 Type 2 diabetes mellitus without complications; E03.9 Hypothyroidism, unspecified; E78.00 Pure hypercholesterolemia, unspecified; G47.00 Insomnia, unspecified; Z91.14 Patient's other noncompliance with medication regimen; Z91.19 Patient's noncompliance with other medical treatment and regimen; L97.419 Non-pressure chronic ulcer of right heel and midfoot with unspecified severity; Z86.69 Personal history of other diseases of the nervous system and sense organs; Z79.4 Long term (current) use of insulin; Z91.013 Allergy to seafood; Z91.5 Personal history of self-harm
CPT/HCPCS: 36415; 80053; 81003; 84443; 85027; 86593; 93005; 93010

== ENCOUNTER 2017-09-04 09:43 | Inpatient (IN) | payer OTHER ==
[2017-09-04 10:04] VITALS: BMI 29.8
--- NOTE | 2017-09-04 14:40 | HP ---
CIWA Score - CIWA Score Nausea/Vomitin-No Nausea/No Vomiting Muscle Tremors: 4-Moderate,w/Arms Extend Anxiety: 4-Mod. Anxious/Guarded Agitation: 3 Paroxysmal Sweats: 1-Minimal Palms Moist Orientation: 0-Oriented Tacttile Disturbances: 3-Moderate Itch/Numb/Burn Auditory Disturbances: 0-None Visual Disturbances: 0-None Headache: 0-None Present CIWA-Ar Total Score: 15 Admission ROS S - HPI Chief Complaint: ALCOHOL WITHDRAWAL SX Allergies/Adverse Reactions: Allergies Allergy/AdvReac Type Severity Reaction Status Date / Time Fish Containing Products Allergy Severe Swelling Verified 06/22/17 11:27 fluphenazine enanthate Allergy Severe Rash Verified 06/22/17 11:27 [From Prolixin] fluphenazine HCl Allergy Severe Rash Verified 06/22/17 11:27 [From Prolixin] Penicillins Allergy Severe Swelling Verified 06/22/17 11:27 History of Present Illness: 51 Y/O H/M WITH A HX OF ALCOHOL AND COCAINE DEPENDENCE SEEKING DETOX TX. PT STATES HX CHEST PAIN DUE TO AORTIC CONDITION PER HIS. PT HAS A PMD AT [facility] [place]. HX HTN ,HYPERCHOLESTEROLEMIA,SEIZURES, HYPERTHYROIDISM AND DEPRESSION. STATES WAS HOSPITALIZED AT [facility] LAST MONTH FOR CYST IN THROAT AND WAS GIVEN RX CLEOCIN ON THE 08/13/17 ON D/C. PT BROUGHT A FULL BOTTLE OF RX HERE TODAY STATING HE WAS NOT TAKING IT AND WAS DRINKING ALCOHOL INSTEAD. PT STATES HIS THROAT STILL HURTS. Exam Limitations: No Limitations - Ebola screening Have you traveled outside of the country in the last 21 days: No Have you had contact with anyone from an Ebola affected area: No Have you been sick,other than usual withdrawal symptoms: No Do you have a fever: No - Review of Systems Constitutional: Chills, Loss of Appetite, Night Sweats, Changes in sleep EENT: reports: Blurred Vision, Tearing, Nose Congestion, Dental Problems ( MISSING TEETH), Other ("I AM ON ANTIBIOTICS TX. I WAS IN [facility] LAST MONTH FOR CYST IN THROAT".) Cardiac: reports: Chest Pain ( "I HAVE CARDIOVASCULAR CONDITION-AORTA".), Lightheadedness GI: reports: Diarrhea, Nausea, Vomiting : reports: No Symptoms Reported Musculoskeletal: reports: Back Pain, Joint Pain, Muscle Pain Integumentary: reports: No Symptoms Reported Neuro: reports: Headache, Seizure (LAST EPISODE LAST MONTH) Endocrine: reports: No Symptoms Reported Hematology: reports: No Symptoms Reported Psychiatric: reports: Orientated x3, Anxious, Depressed Other Systems: Reviewed and Negative Patient History - Patient Medical History Hx Anemia: No Hx Asthma: No Hx Chronic Obstructive Pulmonary Disease (COPD): No Hx Cancer: No Hx Cardiac Disorders: Yes (CHEST PAIN-ON/OFF) Hx Congestive Heart Failure: No Hx Hypertension: Yes (on meds) Hx Hypercholesterolemia: Yes (no medication) HX Cerebrovascular Accident: No Hx Seizures: Yes (seizure disorder last 1 month ago.) Hx Diabetes: Yes (ON NOVOLOG AND LEVEMIR) Hx Gastrointestinal Disorders: No Hx Liver Disease: No Hx Genitourinary Disorders: No Hx Sexually Transmitted Disorders: No Hx Renal Disease (ESRD): No Hx Thyroid Disease: Yes (ON SYNTHROID) Hx Human Immunodeficiency Virus (HIV): No (NEGATIVE HX) Hx Hepatitis C: No Hx Depression: Yes (ON MED) Hx Suicide Attempt: Yes (Pt tried to jump from a 3rd floor in 06/02 while intoxicated) Hx Bipolar Disorder: No Hx Schizophrenia: Yes Other Medical History: HX THROAT CYST; DENIES S/I TOSDAY - Patient Surgical History Past Surgical History: Yes Other Surgical History: R wrist tendon repair in 2014. - PPD History Previous Implant?: Yes Documented Results: Negative w/proof Implanted On Prior [facility] Admission?: Yes Date: 06/24/17 Results: 0 mm - Reproductive History Patient is a Female of Child Bearing Age (11 -55 yrs old): No (MALE) - Smoking Cessation Smoking history: Current every day smoker Have you smoked in the past 12 months: Yes Aproximately how many cigarettes per day: 30 Hx Chewing Tobacco Use: No Initiated information on smoking cessation: Yes 'Breaking Loose' booklet given: 09/04/17 - Substance & Tx. History Hx Alcohol Use: Yes (VODKA) Hx Substance Use: Yes (COCAINE) Substance Use Type: Alcohol, Cocaine Hx Substance Use Treatment: Yes (LAST TX AT [facility]) - Substances Abused Alcohol Route: Oral Frequency: Daily Amount used: fifth of whiskey or vodka Age of first use: 15 Date of Last Use: 09/04/17 Cocaine Route: Inhalation Frequency: 3-6 times per week Amount used: 2-3 sniffs Age of first use: 42 Date of Last Use: 09/02/17 Family Disease History - Family Disease History Family Disease History: Diabetes: Grandparent (HTN;STROKE-), Mother (HTN -), Other: Grandparent, Father (ALCOHOLISM-), Mother Admission Physical Exam [facility] - Vital Signs Vital Signs: Vital Signs - 24 hr 09/04/17 10:03 Temperature 96.8 F L Pulse Rate 85 Respiratory 18 Rate Blood Pressure 125/49 - Physical General Appearance: Yes: Moderate Distress, Irritable, Anxious HEENTM: Yes: EOMI, Normocephalic, JEANNETTE, Pharynx Normal, Other (THROAT NO REDNESS OR SWELLING.) Respiratory: Yes: Chest Non-Tender, Lungs Clear, Normal Breath Sounds, No Respiratory Distress Neck: Yes: No masses,lesions,Nodules, Supple, Trachea in good position Breast: Yes: Breast Exam Deferred Cardiology: Yes: Regular Rhythm, Regular Rate, S1, S2 Abdominal: Yes: Normal Bowel Sounds, Non Tender Genitourinary: Yes: Other (N/C) Back: Yes: Within Normal Limits Musculoskeletal: Yes: full range of Motion, Gait Steady Extremities: Yes: Normal Range of Motion, Non-Tender Neurological: Yes: mixing engineer II-XII NML intact, Fully Oriented, Alert Integumentary: Yes: Dry, Warm Lymphatic: Yes: Within Normal Limits - Diagnostic (1) Alcohol dependence with uncomplicated withdrawal Current Visit: Yes Status: Acute (2) Nicotine dependence Current Visit: Yes Status: Acute Qualifiers: Nicotine product type: cigarettes Substance use status: in withdrawal Qualified Code(s): F17.213 - Nicotine dependence, cigarettes, with withdrawal (3) History of hypothyroidism Current Visit: Yes Status: Chronic (4) Hypertension Current Visit: Yes Status: Chronic Qualifiers: Hypertension type: essential hypertension Qualified Code(s): I10 - Essential (primary) hypertension (5) IDDM (insulin dependent diabetes mellitus) Current Visit: Yes Status: Chronic (6) Seizure Current Visit: Yes Status: Chronic (7) Hypercholesteremia Current Visit: Yes Status: Suspected (8) Ulcer of right foot Current Visit: Yes Status: Chronic Comment: HEALING ULCER AREA WITH SLIGHT REDNESS. (9) Cyst Current Visit: Yes Status: Acute Comment: ON CURRENT TREATMENT FOR THROAT CYST Cleared for Admission [facility] - Detox or Rehab [facility] Level of Care: Medically Managed Detox Regimen/Protocol: Librium [facility] Breath Alcohol Content Breath Alcohol Content: 0 Urine Drug Screen - Results Drug Screen Negative: No Urine Drug Screen Results: OCTAVIO-Cocaine
[2017-09-04] MEDS ORDERED: MAGNESIUM HYDROX 2400MG/30ML ORAL SUSPENSION 30 ML CUP PO PRN (15:19)
[2017-09-04] MEDS ORDERED: guaiFENesin/D-METHORPHAN HB 10 ML UNIT-DOSE CUPS PO PRN (15:19)
[2017-09-04] MEDS ORDERED: P-EPHED 60MG/TRIPROLIDI 2.5MG TABLET PO PRN (15:19)
[2017-09-04] MEDS ORDERED: IBUPROFEN 400 MG TABLET (FP) PO PRN (15:19)
[2017-09-04] MEDS ORDERED: MAGNESIUM CITRATE 300 ML BOTTLE PO PRN (15:19)
[2017-09-04] MEDS ORDERED: NICOTINE POLACRILEX 2 MG GUM BC PRN ×2 (15:19→15:36)
[2017-09-04] MEDS ORDERED: MAG HYDROX/AL HYDROX/SIMETH 30 ML UNIT-DOSE CUP PO PRN (15:19)
[2017-09-04] MEDS ORDERED: ACETAMINOPHEN 325 MG TABLET (FP) PO PRN (15:19)
[2017-09-04] MEDS ORDERED: MENTHOL/PHENOL 1 EACH UD MM PRN (15:19)
[2017-09-04] MEDS ORDERED: NICOTINE 14 MG/24 HOURS TOPICAL PATCH TD SCH (15:30)
[2017-09-04] MEDS ORDERED: chlordiazePOXIDE HCL 25 MG CAPSULE PO ONE (16:15)
[2017-09-04 17:11] LABS: MCH 28.8 pg (25.7-33.7); MCHC 32.7 g/dl (32.0-35.9); MEAN CELL VOLUME 87.9 fl (80-96); MEAN PLT VOLUME 8.1 fl (7.5-11.1); PLATELET COUNT 263 K/MM3 (134-434); RDW 14.9 % (11.9-15.9); WHITE BLOOD COUNT 8.8 K/mm3 (4.0-10.0)
[2017-09-04] MEDS: LEVOTHYROXINE NA 25 MCG TABLET (FP) PO SCH (17:22)
[2017-09-04] MEDS: BACITRACIN 0.9 GM PACKET TP SCH (17:22)
[2017-09-04] MEDS: NICOTINE 14 MG/24 HOURS TOPICAL PATCH TD SCH (17:23)
[2017-09-04] MEDS: ASPIRIN 81 MG CHEWABLE TABLETS PO SCH (17:23)
[2017-09-04] MEDS: chlordiazePOXIDE HCL 25 MG CAPSULE PO SCH ×2 (17:23→22:29)
[2017-09-04] MEDS: NIFEdipine E.R 60 MG TABLET (UD) PO SCH (17:23)
[2017-09-04] MEDS: INSULIN SLIDING SCALE (NOVOLOG) 1 VIAL SQ SCH (17:32)
[2017-09-04 18:06] LABS: ALBUMIN 3.5 g/dl (3.4-5.0); ANION GAP 10 (8-16); BILIRUBIN,TOTAL 0.3 mg/dL (0.2-1.0); CALCIUM 8.7 mg/dL (8.5-10.1); CO2 27 mmol/L (21-32); CREATININE 0.7 mg/dL (0.7-1.3); GLUCOSE,RANDOM 177 mg/dL (74-106); SGOT/AST 16 U/L (15-37); SGPT/ALT 29 U/L (12-78); TOT PROT 7.4 g/dl (6.4-8.2)
[2017-09-04 18:07] LABS: ALK PHOS 107 U/L (45-117)
[2017-09-04] MEDS: CLINDAMYCIN HCL 300 MG CAPSULE PO SCH ×2 (19:00→22:28)
[2017-09-04 19:17] LABS: URINE APPEARANCE SLCLOUDY; URINE BILIRUBIN NEGATIVE (NEGATIVE); URINE BLOOD 1+ (NEGATIVE); URINE COLOR YELLOW; URINE GLUCOSE (UA) 1+ (NEGATIVE); URINE KETONE NEGATIVE (NEGATIVE); URINE LEUK ESTERASE NEGATIVE (NEGATIVE); URINE NITRITE NEGATIVE (NEGATIVE); URINE PROTEIN NEGATIVE (NEGATIVE); URINE UROBILINOGEN NEGATIVE mg/dL (0.2-1.0)
[2017-09-04 21:40] LABS: CALCIUM OXALATE CRYSTALS RARE /hpf (NONE SEEN); URINE MUCUS MODERATE; URINE RBC 1 /hpf (0-3); URINE WBC 2 /hpf (3-5)
[2017-09-04] MEDS: INSULIN DETEMIR 100 UNITS/ML MDV SQ SCH (22:29)
[2017-09-04] MEDS: THIAMINE HCL 100 MG TABLET (FP) PO SCH (22:29)
[2017-09-04 22:43] LABS: URINE LEUK ESTERASE Negative (NEGATIVE)
[2017-09-05] MEDS: chlordiazePOXIDE HCL 25 MG CAPSULE PO SCH ×4 (05:54→23:08)
[2017-09-05] MEDS: LEVOTHYROXINE NA 25 MCG TABLET (FP) PO SCH (07:01)
[2017-09-05] MEDS: INSULIN SLIDING SCALE (NOVOLOG) 1 VIAL SQ SCH ×2 (07:01→17:01)
--- NOTE | 2017-09-05 07:39 | CONSULT ---
[facility] Psychiatric Consult - Data Date of interview: 09/05/17 Admission source: [facility] Identifying data: This is 51 yearswv old male with psychiatric hospitalization history, history if Seizure disorder, iontoxicated with: Alcohol, Cocaine and Nicotine Substance Abuse History: - Smoking Cessation. Smoking history: Current every day smoker. Have you smoked in the past 12 months: Yes. Aproximately how many cigarettes per day: 30. Hx Chewing Tobacco Use: No. Initiated information on smoking cessation: Yes. 'Breaking Loose' booklet given: 09/04/17. - Substance & Tx. History. Hx Alcohol Use: Yes (VODKA). Hx Substance Use: Yes (COCAINE). Substance Use Type: Alcohol, Cocaine. Hx Substance Use Treatment: Yes (LAST TX AT [facility]). - Substances Abused. Alcohol. Route: Oral. Frequency: Daily. Amount used: fifth of whiskey or vodka. Age of first use: 15. Date of Last Use : 09/04/17. Cocaine. Route: Inhalation. Frequency: 3-6 times per week. Amount used: 2-3 sniffs. Age of first use: 42. Date of Last Use: 09/02/17 Medical History: DM-2, Hypothyroiditis, HTN, Seizure disorder, Hypercholesterolemia, Psychiatric History: Patoent reports history of depressiona nd anxiety, seizure diosrder, reports most recent psychiatric admission [id number] at [facility] , reports currently taking: Depakote 500mg po bid. Zoloft 100mg poqd. As per computer carries Schizophrenia as well. Seroquel 299mg po qhs Physical/Sexual Abuse/Trauma History: Denies Additional Comment: Depakote 500mg po bid. Zoloft 100mg poqd. Seroquel 299mg po qhs Mental Status Exam - Mental Status Exam Alert and Oriented to: Person Cognitive Function: Fair Patient Appearance: Unkempt Mood: Sad Affect: Flat Patient Behavior: Sedated Speech Pattern: Delayed Voice Loudness: Mildly Soft/Quiet Thought Process: Circumstantial Thought Disorder: Being Controlled Hallucinations: Denies Suicidal Ideation: Denies Homicidal Ideation: Denies Insight/Judgement: Fair Sleep: Difficulty falling asleep Appetite: Fair Muscle strength/Tone: Mild Hypotonicity Gait/Station: Shuffling Additional Comments: Depakote 500mg po bid. Zoloft 100mg poqd. Seroquel 299mg po qhs Psychiatric Findings - Problem List ([place] 1, 2,3) (1) Seizure disorder Current Visit: Yes Status: Acute (2) Alcohol dependence with uncomplicated withdrawal Current Visit: Yes Status: Acute (3) Nicotine dependence Current Visit: Yes Status: Acute Qualifiers: Nicotine product type: cigarettes Substance use status: in withdrawal Qualified Code(s): F17.213 - Nicotine dependence, cigarettes, with withdrawal (4) History of hypothyroidism Current Visit: Yes Status: Chronic (5) Seizure Current Visit: Yes Status: Chronic (6) Schizophrenia Current Visit: No Status: Chronic - Initial Treatment Plan Initial Treatment Plan: Depakote 500mg po bid. Zoloft 100mg poqd. Seroquel 299mg po qhs
--- NOTE | 2017-09-05 09:33 | EKG ---
Test Reason : Blood Pressure : / mmHG Vent. Rate : 077 BPM Atrial Rate : 077 BPM P-R Int : 136 ms QRS Dur : 084 ms QT Int : 374 ms P-R-T Axes : 023 -29 024 degrees QTc Int : 423 ms NORMAL SINUS RHYTHM NORMAL ECG WHEN COMPARED WITH ECG OF 22-JUN-2017 13:59, T WAVE AMPLITUDE HAS DECREASED IN ANTERIOR LEADS Confirmed by PRETTY FARLEY, BOOGIE ([id number]) on 09/05/2017 9:33:35 AM Referred By: Confirmed By:BOOGIE OLSEN MD
[2017-09-05] MEDS: PRENATAL VITAMINS W/ FOLIC ACID TABLET (FP) PO SCH (10:42)
[2017-09-05] MEDS: chlordiazePOXIDE HCL 25 MG CAPSULE PO PRN ×2 (10:42→15:12)
[2017-09-05] MEDS: SERTRALINE HCL 50 MG TABLET (FP) PO SCH (10:42)
[2017-09-05] MEDS: BACITRACIN 0.9 GM PACKET TP SCH (10:42)
[2017-09-05] MEDS: DIVALPROEX SODIUM 500 MG TABLET E.C. PO SCH ×2 (10:42→22:41)
[2017-09-05] MEDS: ASPIRIN 81 MG CHEWABLE TABLETS PO SCH (10:42)
[2017-09-05] MEDS: CLINDAMYCIN HCL 300 MG CAPSULE PO SCH ×4 (10:42→22:41)
[2017-09-05] MEDS: NICOTINE 14 MG/24 HOURS TOPICAL PATCH TD SCH (10:43)
[2017-09-05] MEDS: NIFEdipine E.R 60 MG TABLET (UD) PO SCH (10:46)
--- NOTE | 2017-09-05 11:00 | PN ---
[facility] CIWA - CIWA Score Nausea/Vomitin Muscle Tremors: 3 Anxiety: 3 Agitation: 3 Paroxysmal Sweats: 3 Orientation: 0-Oriented Tacttile Disturbances: 1-Very Mild Itch/Numbness Auditory Disturbances: 0-None Visual Disturbances: 0-None Headache: 0-None Present CIWA-Ar Total Score: 16 [facility] Progress Note (SOAP) Subjective: interrupted sleep, sweats, shakes , nausea, Objective: 09/05/17 10:58 Vital Signs Temperature 96.6 F L 09/05/17 06:08 Pulse Rate 75 09/05/17 06:08 Respiratory Rate 18 09/05/17 06:08 Blood Pressure 117/56 09/05/17 06:08 O2 Sat by Pulse Oximetry (%) Laboratory Tests 09/04/17 09/04/17 09/04/17 11:48 16:00 16:00 WBC 8.8 RBC 4.72 Hgb 13.6 Hct 41.5 MCV 87.9 MCH 28.8 MCHC 32.7 RDW 14.9 Plt Count 263 MPV 8.1 Sodium 140 Potassium 3.9 Chloride 103 Carbon Dioxide 27 Anion Gap 10 BUN 10 D Creatinine 0.7 Creat Clearance w eGFR > 60 POC Glucometer 175 Random Glucose 177 H Calcium 8.7 Total Bilirubin 0.3 D AST 16 D ALT 29 D Alkaline Phosphatase 107 Total Protein 7.4 Albumin 3.5 Urine Color Urine Appearance Urine pH Ur Specific [place] Urine Protein Urine Glucose (UA) Urine Ketones Urine Blood Urine Nitrite Urine Bilirubin Urine Urobilinogen Ur Leukocyte Esterase Urine WBC (Auto) Urine RBC (Auto) Ur Epithelial Cells Calcium Oxalate Crystal Urine Mucus 09/04/17 09/04/17 09/04/17 16:00 17:29 22:25 WBC RBC Hgb Hct MCV MCH MCHC RDW Plt Count MPV Sodium Potassium Chloride Carbon Dioxide Anion Gap BUN Creatinine Creat Clearance w eGFR POC Glucometer 170 184 Random Glucose Calcium Total Bilirubin AST ALT Alkaline Phosphatase Total Protein Albumin Urine Color Yellow Urine Appearance Slcloudy Urine pH 5.0 Ur Specific [place] 1.025 Urine Protein Negative Urine Glucose (UA) 1+ H Urine Ketones Negative Urine Blood 1+ H Urine Nitrite Negative Urine Bilirubin Negative Urine Urobilinogen Negative Ur Leukocyte Esterase Negative Urine WBC (Auto) 2 Urine RBC (Auto) 1 Ur Epithelial Cells Rare Calcium Oxalate Crystal Rare Urine Mucus Moderate 09/05/17 05:53 WBC RBC Hgb Hct MCV MCH MCHC RDW Plt Count MPV Sodium Potassium Chloride Carbon Dioxide Anion Gap BUN Creatinine Creat Clearance w eGFR POC Glucometer 109 Random Glucose Calcium Total Bilirubin AST ALT Alkaline Phosphatase Total Protein Albumin Urine Color Urine Appearance Urine pH Ur Specific [place] Urine Protein Urine Glucose (UA) Urine Ketones Urine Blood Urine Nitrite Urine Bilirubin Urine Urobilinogen Ur Leukocyte Esterase Urine WBC (Auto) Urine RBC (Auto) Ur Epithelial Cells Calcium Oxalate Crystal Urine Mucus pt aox3 , lying in bed appearing uncomfortable Assessment: 09/05/17 10:59 withdrawal sx's Plan: cont. detox increase fluids prn librium if needed
[2017-09-05] MEDS: LOPERAMIDE HCL 2 MG CAPSULE PO PRN (19:08)
[2017-09-05] MEDS: QUEtiapine FUMARATE 200 MG TABLET PO SCH (22:41)
[2017-09-05] MEDS: INSULIN DETEMIR 100 UNITS/ML MDV SQ SCH (22:43)
[2017-09-05] MEDS: THIAMINE HCL 100 MG TABLET (FP) PO SCH (23:06)
[2017-09-06] MEDS: chlordiazePOXIDE HCL 25 MG CAPSULE PO SCH ×2 (05:35→10:36)
[2017-09-06] MEDS: LEVOTHYROXINE NA 25 MCG TABLET (FP) PO SCH (08:00)
[2017-09-06] MEDS: INSULIN SLIDING SCALE (NOVOLOG) 1 VIAL SQ SCH ×2 (08:01→17:22)
[2017-09-06] MEDS: NIFEdipine E.R 60 MG TABLET (UD) PO SCH (10:36)
[2017-09-06] MEDS: LOPERAMIDE HCL 2 MG CAPSULE PO PRN ×2 (10:36→17:18)
[2017-09-06] MEDS: DIVALPROEX SODIUM 500 MG TABLET E.C. PO SCH ×2 (10:36→22:37)
[2017-09-06] MEDS: ASPIRIN 81 MG CHEWABLE TABLETS PO SCH (10:36)
[2017-09-06] MEDS: BACITRACIN 0.9 GM PACKET TP SCH (10:36)
[2017-09-06] MEDS: SERTRALINE HCL 50 MG TABLET (FP) PO SCH (10:36)
[2017-09-06] MEDS: NICOTINE 14 MG/24 HOURS TOPICAL PATCH TD SCH (10:37)
[2017-09-06] MEDS: PRENATAL VITAMINS W/ FOLIC ACID TABLET (FP) PO SCH (10:37)
[2017-09-06] MEDS: CLINDAMYCIN HCL 300 MG CAPSULE PO SCH ×4 (10:37→22:37)
--- NOTE | 2017-09-06 11:07 | PN ---
S CIWA - CIWA Score Nausea/Vomitin Muscle Tremors: 3 Anxiety: 3 Agitation: 3 Paroxysmal Sweats: 3 Orientation: 0-Oriented Tacttile Disturbances: 1-Very Mild Itch/Numbness Auditory Disturbances: 0-None Visual Disturbances: 0-None Headache: 1-Very Mild CIWA-Ar Total Score: 17 S Progress Note (SOAP) Subjective: nausea, sweats, interrupted seleep, anxiety, tremors Objective: 09/06/17 11:06 Vital Signs - 24 hr 09/05/17 09/05/17 09/05/17 13:09 16:53 22:09 Temperature 98.2 F 96.1 F L 98.0 F Pulse Rate 94 H 87 84 Respiratory 16 18 18 Rate Blood Pressure 128/66 107/62 124/71 09/06/17 09/06/17 09/06/17 00:30 03:30 06:21 Temperature 96.4 F L Pulse Rate 74 Respiratory 18 18 18 Rate Blood Pressure 127/65 09/06/17 09:23 Temperature 97.0 F L Pulse Rate 89 Respiratory 18 Rate Blood Pressure 125/77 Laboratory Tests 09/04/17 09/04/17 09/04/17 11:48 16:00 16:00 WBC 8.8 RBC 4.72 Hgb 13.6 Hct 41.5 MCV 87.9 MCH 28.8 MCHC 32.7 RDW 14.9 Plt Count 263 MPV 8.1 Sodium 140 Potassium 3.9 Chloride 103 Carbon Dioxide 27 Anion Gap 10 BUN 10 D Creatinine 0.7 Creat Clearance w eGFR > 60 POC Glucometer 175 Random Glucose 177 H Calcium 8.7 Total Bilirubin 0.3 D AST 16 D ALT 29 D Alkaline Phosphatase 107 Total Protein 7.4 Albumin 3.5 Urine Color Urine Appearance Urine pH Ur Specific [place] Urine Protein Urine Glucose (UA) Urine Ketones Urine Blood Urine Nitrite Urine Bilirubin Urine Urobilinogen Ur Leukocyte Esterase Urine WBC (Auto) Urine RBC (Auto) Ur Epithelial Cells Calcium Oxalate Crystal Urine Mucus RPR Titer 09/04/17 09/04/17 09/04/17 16:00 16:00 17:29 WBC RBC Hgb Hct MCV MCH MCHC RDW Plt Count MPV Sodium Potassium Chloride Carbon Dioxide Anion Gap BUN Creatinine Creat Clearance w eGFR POC Glucometer 170 Random Glucose Calcium Total Bilirubin AST ALT Alkaline Phosphatase Total Protein Albumin Urine Color Yellow Urine Appearance Slcloudy Urine pH 5.0 Ur Specific [place] 1.025 Urine Protein Negative Urine Glucose (UA) 1+ H Urine Ketones Negative Urine Blood 1+ H Urine Nitrite Negative Urine Bilirubin Negative Urine Urobilinogen Negative Ur Leukocyte Esterase Negative Urine WBC (Auto) 2 Urine RBC (Auto) 1 Ur Epithelial Cells Rare Calcium Oxalate Crystal Rare Urine Mucus Moderate RPR Titer Nonreactive 09/04/17 09/05/17 09/05/17 22:25 05:53 16:28 WBC RBC Hgb Hct MCV MCH MCHC RDW Plt Count MPV Sodium Potassium Chloride Carbon Dioxide Anion Gap BUN Creatinine Creat Clearance w eGFR POC Glucometer 184 109 140 Random Glucose Calcium Total Bilirubin AST ALT Alkaline Phosphatase Total Protein Albumin Urine Color Urine Appearance Urine pH Ur Specific [place] Urine Protein Urine Glucose (UA) Urine Ketones Urine Blood Urine Nitrite Urine Bilirubin Urine Urobilinogen Ur Leukocyte Esterase Urine WBC (Auto) Urine RBC (Auto) Ur Epithelial Cells Calcium Oxalate Crystal Urine Mucus RPR Titer 09/05/17 09/06/17 22:40 05:36 WBC RBC Hgb Hct MCV MCH MCHC RDW Plt Count MPV Sodium Potassium Chloride Carbon Dioxide Anion Gap BUN Creatinine Creat Clearance w eGFR POC Glucometer 268 142 Random Glucose Calcium Total Bilirubin AST ALT Alkaline Phosphatase Total Protein Albumin Urine Color Urine Appearance Urine pH Ur Specific [place] Urine Protein Urine Glucose (UA) Urine Ketones Urine Blood Urine Nitrite Urine Bilirubin Urine Urobilinogen Ur Leukocyte Esterase Urine WBC (Auto) Urine RBC (Auto) Ur Epithelial Cells Calcium Oxalate Crystal Urine Mucus RPR Titer Assessment: 09/06/17 11:06 withdrawal sx, cont detox, fluids, encourage ambualtion
[2017-09-06] MEDS: chlordiazePOXIDE HCL 25 MG CAPSULE PO PRN (14:40)
[2017-09-06] MEDS ORDERED: INSULIN (NOVOLOG) ASPART 100 UNITS/ML 10ML VIAL ONE (17:06)
[2017-09-06] MEDS: chlordiazePOXIDE 5 MG CAPSULE PO SCH ×2 (17:18→22:38)
[2017-09-06] MEDS: QUEtiapine FUMARATE 200 MG TABLET PO SCH (22:37)
[2017-09-06] MEDS: THIAMINE HCL 100 MG TABLET (FP) PO SCH (22:38)
[2017-09-06] MEDS: INSULIN DETEMIR 100 UNITS/ML MDV SQ SCH (22:41)
[2017-09-07] MEDS: chlordiazePOXIDE 5 MG CAPSULE PO SCH ×2 (05:20→10:49)
[2017-09-07] MEDS: LEVOTHYROXINE NA 25 MCG TABLET (FP) PO SCH (07:57)
[2017-09-07] MEDS: INSULIN SLIDING SCALE (NOVOLOG) 1 VIAL SQ SCH ×2 (07:57→17:38)
[2017-09-07] MEDS: SERTRALINE HCL 50 MG TABLET (FP) PO SCH (10:49)
[2017-09-07] MEDS: DIVALPROEX SODIUM 500 MG TABLET E.C. PO SCH ×2 (10:49→22:37)
[2017-09-07] MEDS: ASPIRIN 81 MG CHEWABLE TABLETS PO SCH (10:49)
[2017-09-07] MEDS: PRENATAL VITAMINS W/ FOLIC ACID TABLET (FP) PO SCH (10:49)
[2017-09-07] MEDS: BACITRACIN 0.9 GM PACKET TP SCH (10:49)
[2017-09-07] MEDS: NIFEdipine E.R 60 MG TABLET (UD) PO SCH (10:49)
[2017-09-07] MEDS: CLINDAMYCIN HCL 300 MG CAPSULE PO SCH ×4 (10:49→22:37)
[2017-09-07] MEDS: NICOTINE 14 MG/24 HOURS TOPICAL PATCH TD SCH (10:50)
--- NOTE | 2017-09-07 11:29 | PN ---
[facility] Progress Note (SOAP) Subjective: diarrhea sweats shakes Objective: 09/07/17 11:27 Vital Signs Temperature 97.7 F 09/07/17 10:04 Pulse Rate 90 09/07/17 10:04 Respiratory Rate 16 09/07/17 10:04 Blood Pressure 140/80 09/07/17 10:04 O2 Sat by Pulse Oximetry (%) aaox3 ambulating no acute distress Assessment: 09/07/17 11:27 withdrawal sx Plan: continue detox d/c in am
[2017-09-07] MEDS: chlordiazePOXIDE HCL 10 MG CAPSULE PO SCH ×2 (17:36→22:37)
[2017-09-07] MEDS: INSULIN DETEMIR 100 UNITS/ML MDV SQ SCH (22:41)
[2017-09-07] MEDS: QUEtiapine FUMARATE 200 MG TABLET PO SCH (22:42)
[2017-09-07] MEDS: THIAMINE HCL 100 MG TABLET (FP) PO SCH (22:42)
[2017-09-08] MEDS: chlordiazePOXIDE HCL 10 MG CAPSULE PO SCH (05:20)
[2017-09-08] MEDS: INSULIN SLIDING SCALE (NOVOLOG) 1 VIAL SQ SCH (08:00)
[2017-09-08] MEDS: LEVOTHYROXINE NA 25 MCG TABLET (FP) PO SCH (08:01)
[2017-09-08] MEDS: BACITRACIN 0.9 GM PACKET TP SCH (09:57)
[2017-09-08] MEDS: NIFEdipine E.R 60 MG TABLET (UD) PO SCH (09:57)
[2017-09-08] MEDS: DIVALPROEX SODIUM 500 MG TABLET E.C. PO SCH (09:57)
[2017-09-08] MEDS: PRENATAL VITAMINS W/ FOLIC ACID TABLET (FP) PO SCH (09:57)
[2017-09-08] MEDS: SERTRALINE HCL 50 MG TABLET (FP) PO SCH (09:57)
[2017-09-08] MEDS: ASPIRIN 81 MG CHEWABLE TABLETS PO SCH (09:57)
--- NOTE | 2017-09-08 09:57 | DS ---
[facility] Detox Discharge Summary Admission Date: 09/04/17 Discharge Date: 09/08/17 - History Present History: Alcohol Dependence, Cocaine Dependence Pertinent Past History: HTN Type II DM - Physical Exam Results Vital Signs: Vital Signs Temperature 96.4 F L 09/08/17 06:07 Pulse Rate 66 09/08/17 06:07 Respiratory Rate 16 09/08/17 06:07 Blood Pressure 128/71 09/08/17 06:07 O2 Sat by Pulse Oximetry (%) Pertinent Admission Physical Exam Findings: Withdrawal sx. Laboratory Last Values WBC 8.8 K/mm3 (4.0-10.0) 09/04/17 16:00 RBC 4.72 M/mm3 (4.00-5.60) 09/04/17 16:00 Hgb 13.6 GM/dL (11.7-16.9) 09/04/17 16:00 Hct 41.5 % (35.4-49) 09/04/17 16:00 MCV 87.9 fl (80-96) 09/04/17 16:00 MCH 28.8 pg (25.7-33.7) 09/04/17 16:00 MCHC 32.7 g/dl (32.0-35.9) 09/04/17 16:00 RDW 14.9 % (11.9-15.9) 09/04/17 16:00 Plt Count 263 K/MM3 (134-434) 09/04/17 16:00 MPV 8.1 fl (7.5-11.1) 09/04/17 16:00 Sodium 140 mmol/L (136-145) 09/04/17 16:00 Potassium 3.9 mmol/L (3.5-5.1) 09/04/17 16:00 Chloride 103 mmol/L (98-107) 09/04/17 16:00 Carbon Dioxide 27 mmol/L (21-32) 09/04/17 16:00 Anion Gap 10 (8-16) 09/04/17 16:00 BUN 10 mg/dL (7-18) D 09/04/17 16:00 Creatinine 0.7 mg/dL (0.7-1.3) 09/04/17 16:00 Creat Clearance w eGFR > 60 (>60) 09/04/17 16:00 POC Glucometer 292 UNITS (80-120) 09/07/17 22:39 Random Glucose 177 mg/dL (74-106) H 09/04/17 16:00 Calcium 8.7 mg/dL (8.5-10.1) 09/04/17 16:00 Total Bilirubin 0.3 mg/dL (0.2-1.0) D 09/04/17 16:00 AST 16 U/L (15-37) D 09/04/17 16:00 ALT 29 U/L (12-78) D 09/04/17 16:00 Alkaline Phosphatase 107 U/L (45-117) 09/04/17 16:00 Total Protein 7.4 g/dl (6.4-8.2) 09/04/17 16:00 Albumin 3.5 g/dl (3.4-5.0) 09/04/17 16:00 Urine Color Yellow 09/04/17 16:00 Urine Appearance Slcloudy 09/04/17 16:00 Urine pH 5.0 (5.0-8.0) 09/04/17 16:00 Ur Specific [place] 1.025 (1.001-1.035) 09/04/17 16:00 Urine Protein Negative (NEGATIVE) 09/04/17 16:00 Urine Glucose (UA) 1+ (NEGATIVE) H 09/04/17 16:00 Urine Ketones Negative (NEGATIVE) 09/04/17 16:00 Urine Blood 1+ (NEGATIVE) H 09/04/17 16:00 Urine Nitrite Negative (NEGATIVE) 09/04/17 16:00 Urine Bilirubin Negative (NEGATIVE) 09/04/17 16:00 Urine Urobilinogen Negative mg/dL (0.2-1.0) 09/04/17 16:00 Ur Leukocyte Esterase Negative (NEGATIVE) 09/04/17 16:00 Urine WBC (Auto) 2 /hpf (3-5) 09/04/17 16:00 Urine RBC (Auto) 1 /hpf (0-3) 09/04/17 16:00 Ur Epithelial Cells Rare /HPF (FEW) 09/04/17 16:00 Calcium Oxalate Crystal Rare /hpf (NONE SEEN) 09/04/17 16:00 Urine Mucus Moderate 09/04/17 16:00 RPR Titer Nonreactive (NONREACTIVE) 09/04/17 16:00 labs noted - Treatment Hospital Course: Detox Protocol Followed, Detoxed Safely, Responded well, Discharged Condition Good, Rehab Referral Accepted Patient has Accepted a Rehab Referral to: [facility] - Medication Discharge Medications: Ambulatory Orders Insulin (Novolog) [Novolog Flexpen] 25 units SQ AC 06/22/17 Insulin (Levemir) [Levemir Flexpen -] 35 units SQ DAILY #1 units 06/26/17 Levothyroxine [Synthroid -] 25 mcg PO DAILY #30 mcg 06/26/17 Aspirin [ASA -] 81 mg PO DAILY 09/04/17 Clindamycin [Cleocin -] 300 mg PO Q6H 09/04/17 Nifedipine ER [Procardia Xl -] 120 mg PO DAILY 09/04/17 Divalproex [Depakote -] 500 mg PO BID #60 tablet.ec 09/05/17 Quetiapine Fumarate [Seroquel -] 200 mg PO HS #30 tab 09/05/17 Sertraline HCl [Zoloft] 100 mg PO DAILY #30 tablet 09/05/17 - Diagnosis (1) Alcohol dependence with uncomplicated withdrawal Current Visit: Yes Status: Chronic (2) History of hypothyroidism Current Visit: Yes Status: Chronic (3) Hypertension Current Visit: Yes Status: Chronic Qualifiers: Hypertension type: essential hypertension Qualified Code(s): I10 - Essential (primary) hypertension (4) IDDM (insulin dependent diabetes mellitus) Current Visit: Yes Status: Chronic (5) Nicotine dependence Current Visit: Yes Status: Chronic Qualifiers: Nicotine product type: cigarettes Substance use status: uncomplicated Qualified Code(s): F17.210 - Nicotine dependence, cigarettes, uncomplicated (6) Schizophrenia Current Visit: No Status: Chronic - AMA Did Patient Leave Against Medical Advice: No
[2017-09-08] MEDS: CLINDAMYCIN HCL 300 MG CAPSULE PO SCH (09:59)
[2017-09-08 11:52] VITALS: BP 122/72; PULSE 92; TEMP 96
== END 2017-09-08 10:00 | disposition home or self-care (01) | DRG 774 ==
LOC: YASAS 09:43 → Y6N 12:55
PROVIDERS: ADMIT Internal Medicine; ATTEND Internal Medicine
PROC: HZ2ZZZZ Detoxification Services for Substance Abuse Treatment (ICD-10-PCS; principal; 2017-09-04)
DX: F10.230 Alcohol dependence with withdrawal, uncomplicated (principal); F14.20 Cocaine dependence, uncomplicated; F17.210 Nicotine dependence, cigarettes, uncomplicated; F20.9 Schizophrenia, unspecified; G47.00 Insomnia, unspecified; I10 Essential (primary) hypertension; E78.00 Pure hypercholesterolemia, unspecified; E11.9 Type 2 diabetes mellitus without complications; E03.9 Hypothyroidism, unspecified; G40.909 Epilepsy, unspecified, not intractable, without status epilepticus; K09.8 Other cysts of oral region, not elsewhere classified; L97.509 Non-pressure chronic ulcer of other part of unspecified foot with unspecified severity; Z79.4 Long term (current) use of insulin; Z79.82 Long term (current) use of aspirin; Z91.013 Allergy to seafood; Z88.0 Allergy status to penicillin; Z88.8 Allergy status to other drugs, medicaments and biological substances; Z91.5 Personal history of self-harm
CPT/HCPCS: 36415; 80053; 81003; 81015; 85027; 86593; 93005; 93010

== ENCOUNTER 2017-10-19 08:31 | Inpatient (IN) | payer OTHER ==
[2017-10-19 11:22] VITALS: BMI 29.9
--- NOTE | 2017-10-19 14:25 | HP ---
CIWA Score - CIWA Score Nausea/Vomitin-Int. Nausea w/Dry Heave (AND DIARRHEA) Muscle Tremors: 4-Moderate,w/Arms Extend Anxiety: 4-Mod. Anxious/Guarded Agitation: 4-Moderately Restless Paroxysmal Sweats: 1-Minimal Palms Moist Orientation: 1-Uncertain about Date Tacttile Disturbances: 3-Moderate Itch/Numb/Burn Auditory Disturbances: 0-None Visual Disturbances: 0-None Headache: 0-None Present CIWA-Ar Total Score: 21 Admission [facility] Chief Complaint: WITHDRAWAL SX FROM HEROIN AND ALCOHOL Allergies/Adverse Reactions: Allergies Allergy/AdvReac Type Severity Reaction Status Date / Time Fish Containing Products Allergy Severe Swelling Verified 10/19/17 11:14 fluphenazine enanthate Allergy Severe Rash Verified 10/19/17 11:14 [From Prolixin] fluphenazine HCl Allergy Severe Rash Verified 10/19/17 11:14 [From Prolixin] Penicillins Allergy Severe Swelling Verified 10/19/17 11:14 History of Present Illness: 52 Y/O H/MALE WITH A HX OF HEROIN AND ALCOHOL DEPENDENCE SEEKING DETOX [place]. Exam Limitations: No Limitations - Ebola screening Have you traveled outside of the country in the last 21 days: No Have you had contact with anyone from an Ebola affected area: No Have you been sick,other than usual withdrawal symptoms: No - Review of Systems Constitutional: Chills, Loss of Appetite, Night Sweats, Changes in sleep EENT: reports: Blurred Vision, Tearing (RIGHT EYE IRRITATION,REDNESS AND CRUSTING X 2 DAYS.), Nose Congestion, Dental Problems (MISSING TEETH) Respiratory: reports: Other (HX "RESPIRATORY INFECTIONS IN MY CHEST") Cardiac: reports: Lightheadedness GI: reports: Diarrhea, Nausea, Poor Appetite, Poor Fluid Intake, Vomiting, Abdominal cramping : reports: Dysuria ("SOMETIMES I HAVE TO FORCE MYSELF") Musculoskeletal: reports: Muscle Pain Integumentary: reports: Other (TATOOS ON BOTH HANDS) Neuro: reports: Seizure (LAST EPISODE 2 WEEKS AGO.), Tremors, Unsteady Gait, Dizziness Endocrine: reports: No Symptoms Reported Hematology: reports: Anemia Psychiatric: reports: Orientated x3, Anxious, Depressed Other Systems: Reviewed and Negative Patient History - Patient Medical History Hx Anemia: Yes (REPORTS HX) Hx Asthma: No Hx Chronic Obstructive Pulmonary Disease (COPD): No Hx Cancer: No Hx Cardiac Disorders: No Hx Congestive Heart Failure: No Hx Hypertension: Yes (on meds.) Hx Hypercholesterolemia: Yes (no medication) HX Cerebrovascular Accident: No Hx Seizures: Yes (seizure disorder on meds. Last seizure 2 wks ago) Hx Diabetes: Yes Hx Gastrointestinal Disorders: No Hx Liver Disease: No Hx Genitourinary Disorders: No Hx Sexually Transmitted Disorders: No Hx Renal Disease (ESRD): No Hx Thyroid Disease: Yes (ON SYNTHROID) Hx Human Immunodeficiency Virus (HIV): No (NEGATIVE HX) Hx Hepatitis C: No Hx Depression: Yes Hx Suicide Attempt: Yes (Tried to jump from a window 1 yr ago;DENIES S/H/I) Hx Bipolar Disorder: No Hx Schizophrenia: Yes - Patient Surgical History Past Surgical History: Yes Hx Neurologic Surgery: No Hx Cataract Extraction: No Hx Cardiac Surgery: No Hx Lung Surgery: No Hx Breast Surgery: No Hx Breast Biopsy: No Hx Abdominal Surgery: No Hx Appendectomy: No Hx Cholecystectomy: No Hx Genitourinary Surgery: No Hx Orthopedic Surgery: No Other Surgical History: R wrist tendon repair in 2014. Anesthesia Reaction: No - PPD History Previous Implant?: Yes Documented Results: Negative w/proof Implanted On Prior R Admission?: Yes Date: 06/24/17 Results: 0 mm PPD to be Administered?: No - Reproductive History Patient is a Female of Child Bearing Age (11 -55 yrs old): No (MALE) - Smoking Cessation Smoking history: Current every day smoker Have you smoked in the past 12 months: Yes Aproximately how many cigarettes per day: 30 Hx Chewing Tobacco Use: No Initiated information on smoking cessation: Yes 'Breaking Loose' booklet given: 10/19/17 - Substance & Tx. History Hx Alcohol Use: Yes (WHISKEY/BEER) Hx Substance Use: Yes (HEROIN/COCAINE) Substance Use Type: Alcohol, Cocaine, Heroin Hx Substance Use Treatment: Yes (LAST TX AT [facility] DETOX) - Substances Abused Heroin Route: Injection Frequency: Daily Amount used: 1 and 1/2 grams Age of first use: 15 Date of Last Use: 10/17/17 Cocaine Route: Inhalation Frequency: Daily Amount used: $500 Age of first use: 15 Date of Last Use: 10/18/17 Alcohol Route: Oral Frequency: Daily Amount used: 1 pint cognac Age of first use: 15 Date of Last Use: 10/18/17 Family Disease History - Family Disease History Family Disease History: Diabetes: Grandparent (HTN;STROKE-), Mother (HTN -), Other: Grandparent, Father (ALCOHOLISM-), Mother Admission Physical Exam [facility] - Vital Signs Vital Signs: Vital Signs - 24 hr 10/19/17 11:10 Temperature 96.9 F L Pulse Rate 81 Respiratory 20 Rate Blood Pressure 150/87 - Physical General Appearance: Yes: Moderate Distress, Irritable, Anxious HEENTM: Yes: EOMI, Normocephalic, JEANNETTE, Pharynx Normal, Nasal Congestion, Rhinorrhea, Other (RIGHT EYE WATERY WITH SLIGHT CRUST TO INNER CANTHUS.) Respiratory: Yes: Normal Breath Sounds, No Respiratory Distress Neck: Yes: Supple, Trachea in good position Breast: Yes: Breast Exam Deferred Cardiology: Yes: Regular Rhythm, Regular Rate, S1, S2 Abdominal: Yes: Normal Bowel Sounds, Non Tender, Flat, Protuberent Genitourinary: Yes: Other (N/C) Back: Yes: Within Normal Limits Musculoskeletal: Yes: full range of Motion, Gait Steady Extremities: Yes: Normal Range of Motion, Non-Tender Neurological: Yes: loan officer assistant II-XII NML intact, Fully Oriented, Alert, Motor Strength 5/5 Integumentary: Yes: Dry, Warm, Track [place] (BOTH ELBOWS. NO REDNESS OR SWELLING. ) - Diagnostic (1) Cocaine dependence Current Visit: Yes Status: Acute Qualifiers: Substance use status: uncomplicated Qualified Code(s): F14.20 - Cocaine dependence, uncomplicated (2) Seizure disorder Current Visit: Yes Status: Suspected (3) Alcohol dependence with uncomplicated withdrawal Current Visit: Yes Status: Acute (4) History of hypothyroidism Current Visit: Yes Status: Chronic (5) Hypertension Current Visit: Yes Status: Chronic Qualifiers: Hypertension type: essential hypertension Qualified Code(s): I10 - Essential (primary) hypertension (6) IDDM (insulin dependent diabetes mellitus) Current Visit: Yes Status: Chronic (7) Nicotine dependence Current Visit: Yes Status: Acute Qualifiers: Nicotine product type: cigarettes Substance use status: uncomplicated Qualified Code(s): F17.210 - Nicotine dependence, cigarettes, uncomplicated (8) Hypercholesteremia Current Visit: Yes Status: Suspected Cleared for Admission [facility] - Detox or Rehab [facility] Level of Care: Medically Managed Detox Regimen/Protocol: Methadone/Librium [facility] Breath Alcohol Content Breath Alcohol Content: 0 Urine Drug Screen - Results Drug Screen Negative: No Urine Drug Screen Results: OCTAVIO-Cocaine
[2017-10-19] MEDS ORDERED: MAG HYDROX/AL HYDROX/SIMETH 30 ML UNIT-DOSE CUP PO PRN (14:44)
[2017-10-19] MEDS ORDERED: NICOTINE POLACRILEX 4 MG GUM BUC PRN (14:44)
[2017-10-19] MEDS ORDERED: chlordiazePOXIDE HCL 25 MG CAPSULE PO PRN (14:44)
[2017-10-19] MEDS ORDERED: guaiFENesin/D-METHORPHAN HB 10 ML UNIT-DOSE CUPS PO PRN (14:44)
[2017-10-19] MEDS ORDERED: MENTHOL/PHENOL 1 EACH UD MM PRN (14:44)
[2017-10-19] MEDS ORDERED: MAGNESIUM HYDROX 2400MG/30ML ORAL SUSPENSION 30 ML CUP PO PRN (14:44)
[2017-10-19] MEDS ORDERED: MAGNESIUM CITRATE 300 ML BOTTLE PO PRN (14:44)
[2017-10-19] MEDS ORDERED: LOPERAMIDE HCL 2 MG CAPSULE PO PRN (14:44)
[2017-10-19] MEDS ORDERED: IBUPROFEN 400 MG TABLET (FP) PO PRN (14:44)
[2017-10-19] MEDS ORDERED: P-EPHED 60MG/TRIPROLIDI 2.5MG TABLET PO PRN (14:44)
[2017-10-19] MEDS ORDERED: ACETAMINOPHEN 325 MG TABLET (FP) PO PRN (14:44)
[2017-10-19] MEDS ORDERED: chlordiazePOXIDE HCL 25 MG CAPSULE PO ONE (15:07)
[2017-10-19] MEDS: NIFEdipine E.R 60 MG TABLET (UD) PO SCH (15:30)
[2017-10-19] MEDS: LEVOTHYROXINE NA 25 MCG TABLET (FP) PO SCH (15:30)
[2017-10-19] MEDS: NICOTINE 21 MG/24 HOURS TOPICAL PATCH TD SCH (15:31)
[2017-10-19] MEDS: ASPIRIN 81 MG CHEWABLE TABLETS PO SCH (15:31)
--- NOTE | 2017-10-19 15:46 | CONSULT ---
[facility] Psychiatric Consult - Data Date of interview: 10/19/17 Admission source: [facility] Identifying data: Readmission to [facility] for this 52 y/o male seeking detox treatment on for heroin and alcohol dependence.Patient is single,a father of one,homeless,unemployed and supported on SSI benefits. Substance Abuse History: Confirmed by patient in this session.See current [facility] report for detail : Smoking history: Current every day smoker. Have you smoked in the past 12 months: Yes. Aproximately how many cigarettes per day: 30. Hx Chewing Tobacco Use: No. Initiated information on smoking cessation: Yes. ' Breaking Loose' booklet given: 10/19/17. - Substance & Tx. History. Hx Alcohol Use: Yes (WHISKEY/BEER). Hx Substance Use: Yes (HEROIN/COCAINE). Substance Use Type: Alcohol, Cocaine, Heroin. Hx Substance Use Treatment: Yes ( LAST TX AT [facility] DETOX). - Substances Abused. Heroin. Route: Injection. Frequency: Daily. Amount used: 1 and 1/2 grams. Age of first use: 15. Date of Last Use: 10/17/17. Cocaine. Route: Inhalation. Frequency: Daily. Amount used: $500. Age of first use: 15. Date of Last Use: 10/18/17. Alcohol. Route: Oral. Frequency: Daily. Amount used: 1 pint cognac. Age of first use: 15. 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 Psychiatric History: Diagnosed with Paranoid Schizophrenia.History of multiple psychiatric hsopitalizations ([facility],[place],[facility] and a facilty in [place]).Last hospitalized in August 2017.Medicated with seroquel 200 mg/hs + zoloft 100 mg/day + trazodone 100 mg/ hs. self -report.Mr Richey gets his outpatient psychiatric services at the [facility] in [place].Reportedly took his medications two days ago.Patient admits to a history of four suicide attempts through various means ( hanging,wrist-cutting,jumping off of a third floor window,overdosing with drugs + alcohol).Most recently as May 2016. Physical/Sexual Abuse/Trauma History: Patient denies history of abuse. Additional Comment: Urine Drug Screen Results: OCTAVIO-Cocaine.Noted. Mental Status Exam - Mental Status Exam Alert and Oriented to: Time, Place, Person Cognitive Function: Grossly Intact Patient Appearance: Unkempt, Disheveled Mood: Nervous, Anxious, Hopeful Affect: Mood Congruent Patient Behavior: Fatigued, Appropriate, Cooperative Speech Pattern: Clear, Appropriate Voice Loudness: Normal Thought Process: Goal Oriented Thought Disorder: Not Present Hallucinations: Denies Suicidal Ideation: Denies Homicidal Ideation: Denies Insight/Judgement: Poor Sleep: Poorly, Difficulty falling asleep Appetite: Good Muscle strength/Tone: Normal Gait/Station: Normal Psychiatric Findings - Problem List ([place] 1, 2,3) (1) Alcohol dependence with uncomplicated withdrawal Current Visit: Yes Status: Acute (2) Cocaine dependence Current Visit: Yes Status: Acute Qualifiers: Substance use status: uncomplicated Qualified Code(s): F14.20 - Cocaine dependence, uncomplicated (3) Nicotine dependence Current Visit: Yes Status: Acute Qualifiers: Nicotine product type: cigarettes Substance use status: uncomplicated Qualified Code(s): F17.210 - Nicotine dependence, cigarettes, uncomplicated (4) Substance induced mood disorder Current Visit: Yes Status: Acute (5) Schizophrenia Current Visit: Yes Status: Acute (6) Insomnia Current Visit: Yes Status: Acute - Initial Treatment Plan Initial Treatment Plan: Previous records are revisited.Psychoeducation and support.Detoxification in progress.Medications : seroquel 200 mg po hs + trazodone 50 mg po hs + zoloft 100 mg po daily.Side effects/benefits of each drug are discussed with patient.Made aware of the potential for oversedation, cardiovascular adverse events,abnormal involuntary movements,suicidal ideation, sexual dysfunction and priapism.Mr Richey denies past history of adverse effects from this regimen and he agrees to continue this careplan.Observation.
[2017-10-19] MEDS: INSULIN SLIDING SCALE (NOVOLOG) 1 VIAL SQ SCH (16:52)
[2017-10-19 17:09] LABS: HEMATOCRIT 40.1 % (35.4-49); HEMOGLOBIN 13.3 GM/dL (11.7-16.9); MCH 28.6 pg (25.7-33.7); MCHC 33.2 g/dl (32.0-35.9); MEAN CELL VOLUME 86.4 fl (80-96); MEAN PLT VOLUME 8.1 fl (7.5-11.1); PLATELET COUNT 269 K/MM3 (134-434); RBC 4.65 M/mm3 (4.00-5.60); RDW 14.6 % (11.9-15.9); WHITE BLOOD COUNT 12.7 K/mm3 (4.0-10.0)
[2017-10-19 17:18] LABS: ALBUMIN 4.1 g/dl (3.4-5.0); ANION GAP 4 (8-16); BLOOD UREA NITROGEN 21 mg/dL (7-18); CALCIUM 8.5 mg/dL (8.5-10.1); CHLORIDE 103 mmol/L (98-107); CO2 31 mmol/L (21-32); GLUCOSE,RANDOM 116 mg/dL (74-106); POTASSIUM 3.7 mmol/L (3.5-5.1); SODIUM 138 mmol/L (136-145)
[2017-10-19] MEDS: chlordiazePOXIDE HCL 25 MG CAPSULE PO SCH ×2 (17:22→22:29)
[2017-10-19 17:31] LABS: URINE APPEARANCE TURBID; URINE BILIRUBIN NEGATIVE (NEGATIVE); URINE BLOOD NEGATIVE (NEGATIVE); URINE COLOR YELLOW; URINE GLUCOSE (UA) NEGATIVE (NEGATIVE); URINE KETONE TRACE (NEGATIVE); URINE LEUK ESTERASE NEGATIVE (NEGATIVE); URINE NITRITE NEGATIVE (NEGATIVE); URINE UROBILINOGEN NEGATIVE mg/dL (0.2-1.0)
[2017-10-19 17:37] LABS: URINE PROTEIN 1+ (NEGATIVE)
[2017-10-19 18:04] LABS: ALK PHOS 81 U/L (45-117); CREATININE 0.7 mg/dL (0.7-1.3); SGOT/AST 22 U/L (15-37); SGPT/ALT 27 U/L (12-78); TOT PROT 8.1 g/dl (6.4-8.2)
[2017-10-19] MEDS: ERYTHROMYCIN 0.5% OPHTHALMIC OINTMENT 3.5 GM TUBE OD SCH (22:29)
[2017-10-19] MEDS: THIAMINE HCL 100 MG TABLET (FP) PO SCH (22:29)
[2017-10-19] MEDS: traZODone HCL 50 MG TABLET (FP) PO SCH (22:29)
[2017-10-19] MEDS: QUEtiapine FUMARATE 200 MG TABLET PO SCH (22:29)
[2017-10-19] MEDS: INSULIN DETEMIR 100 UNITS/ML MDV SQ SCH (22:31)
[2017-10-20] MEDS: chlordiazePOXIDE HCL 25 MG CAPSULE PO SCH ×4 (05:20→22:32)
[2017-10-20] MEDS: LEVOTHYROXINE NA 25 MCG TABLET (FP) PO SCH (06:08)
[2017-10-20] MEDS: INSULIN SLIDING SCALE (NOVOLOG) 1 VIAL SQ SCH ×2 (06:09→17:34)
[2017-10-20] MEDS: NIFEdipine E.R 60 MG TABLET (UD) PO SCH (10:27)
[2017-10-20] MEDS: PRENATAL VITAMINS W/ FOLIC ACID TABLET (FP) PO SCH (10:27)
[2017-10-20] MEDS: ASPIRIN 81 MG CHEWABLE TABLETS PO SCH (10:27)
[2017-10-20] MEDS: SERTRALINE HCL 50 MG TABLET (FP) PO SCH (10:28)
[2017-10-20] MEDS: NICOTINE 21 MG/24 HOURS TOPICAL PATCH TD SCH (10:28)
[2017-10-20] MEDS: ERYTHROMYCIN 0.5% OPHTHALMIC OINTMENT 3.5 GM TUBE OD SCH (10:28)
--- NOTE | 2017-10-20 16:30 | PN ---
S CIWA - CIWA Score Nausea/Vomitin Muscle Tremors: 4-Moderate,w/Arms Extend Anxiety: 3 Agitation: 2 Paroxysmal Sweats: 3 Orientation: 0-Oriented Tacttile Disturbances: 2-Mild Itch/Numbness/Burn Auditory Disturbances: 0-None Visual Disturbances: 0-None Headache: 2-Mild CIWA-Ar Total Score: 19 BHS Progress Note (SOAP) Subjective: Tremors, Sweating, Diarrhea, Sweating, Nausea, Body Aches. Objective: PT. A & O X 3, OBSERVED AMBULATING ON UNIT. NO ACUTE DISTRESS. 10/20/17 16:28 Vital Signs Temperature 96.3 F L 10/20/17 09:44 Pulse Rate 84 10/20/17 09:44 Respiratory Rate 18 10/20/17 09:44 Blood Pressure 100/63 10/20/17 09:44 O2 Sat by Pulse Oximetry (%) Laboratory Tests 10/19/17 10/19/17 10/19/17 12:00 15:00 15:00 WBC 12.7 H D RBC 4.65 Hgb 13.3 Hct 40.1 MCV 86.4 MCH 28.6 MCHC 33.2 RDW 14.6 Plt Count 269 MPV 8.1 Sodium 138 Potassium 3.7 Chloride 103 Carbon Dioxide 31 Anion Gap 4 L BUN 21 H D Creatinine 0.7 Creat Clearance w eGFR > 60 POC Glucometer Random Glucose 116 H D Calcium 8.5 Total Bilirubin 1.0 D AST 22 D ALT 27 Alkaline Phosphatase 81 D Total Protein 8.1 Albumin 4.1 Urine Color Urine Appearance Urine pH Ur Specific [place] Urine Protein Urine Glucose (UA) Urine Ketones Urine Blood Urine Nitrite Urine Bilirubin Urine Urobilinogen Ur Leukocyte Esterase RPR Titer HIV 1&2 Antibody Screen Negative HIV P24 Antigen Negative 10/19/17 10/19/17 10/19/17 15:00 15:00 16:25 WBC RBC Hgb Hct MCV MCH MCHC RDW Plt Count MPV Sodium Potassium Chloride Carbon Dioxide Anion Gap BUN Creatinine Creat Clearance w eGFR POC Glucometer 153 Random Glucose Calcium Total Bilirubin AST ALT Alkaline Phosphatase Total Protein Albumin Urine Color Yellow Urine Appearance Turbid Urine pH 5.0 Ur Specific [place] 1.031 Urine Protein 1+ H Urine Glucose (UA) Negative Urine Ketones Trace H Urine Blood Negative Urine Nitrite Negative Urine Bilirubin Negative Urine Urobilinogen Negative Ur Leukocyte Esterase Negative RPR Titer Nonreactive HIV 1&2 Antibody Screen HIV P24 Antigen 10/19/17 10/20/17 10/20/17 22:04 05:19 16:00 WBC RBC Hgb Hct MCV MCH MCHC RDW Plt Count MPV Sodium Potassium Chloride Carbon Dioxide Anion Gap BUN Creatinine Creat Clearance w eGFR POC Glucometer 180 185 226 Random Glucose Calcium Total Bilirubin AST ALT Alkaline Phosphatase Total Protein Albumin Urine Color Urine Appearance Urine pH Ur Specific [place] Urine Protein Urine Glucose (UA) Urine Ketones Urine Blood Urine Nitrite Urine Bilirubin Urine Urobilinogen Ur Leukocyte Esterase RPR Titer HIV 1&2 Antibody Screen HIV P24 Antigen LABS NOTED. Assessment: 10/20/17 16:28 WITHDRAWAL SYMPTOMS. Plan: CONTINUE DETOX.
[2017-10-20] MEDS ORDERED: INSULIN (NOVOLOG) ASPART 100 UNITS/ML 10ML VIAL ONE (16:35)
[2017-10-20] MEDS: THIAMINE HCL 100 MG TABLET (FP) PO SCH (22:32)
[2017-10-20] MEDS: QUEtiapine FUMARATE 200 MG TABLET PO SCH (22:32)
[2017-10-20] MEDS: INSULIN DETEMIR 100 UNITS/ML MDV SQ SCH (22:33)
[2017-10-20] MEDS: traZODone HCL 50 MG TABLET (FP) PO SCH (22:33)
[2017-10-21] MEDS: LEVOTHYROXINE NA 25 MCG TABLET (FP) PO SCH (06:03)
[2017-10-21] MEDS: chlordiazePOXIDE HCL 25 MG CAPSULE PO SCH ×2 (06:03→10:38)
[2017-10-21] MEDS: INSULIN SLIDING SCALE (NOVOLOG) 1 VIAL SQ SCH ×2 (06:04→17:45)
[2017-10-21] MEDS: ERYTHROMYCIN 0.5% OPHTHALMIC OINTMENT 3.5 GM TUBE OD SCH (10:37)
[2017-10-21] MEDS: NIFEdipine E.R 60 MG TABLET (UD) PO SCH (10:38)
[2017-10-21] MEDS: SERTRALINE HCL 50 MG TABLET (FP) PO SCH (10:38)
[2017-10-21] MEDS: ASPIRIN 81 MG CHEWABLE TABLETS PO SCH (10:38)
[2017-10-21] MEDS: PRENATAL VITAMINS W/ FOLIC ACID TABLET (FP) PO SCH (10:38)
[2017-10-21] MEDS: NICOTINE 21 MG/24 HOURS TOPICAL PATCH TD SCH (10:39)
[2017-10-21] MEDS ORDERED: ONDANSETRON *ODT* 4 MG TABLET SL PRN (11:14)
--- NOTE | 2017-10-21 13:15 | EKG ---
Test Reason : Blood Pressure : / mmHG Vent. Rate : 077 BPM Atrial Rate : 077 BPM P-R Int : 134 ms QRS Dur : 084 ms QT Int : 384 ms P-R-T Axes : 023 -47 011 degrees QTc Int : 434 ms NORMAL SINUS RHYTHM LEFT AXIS DEVIATION ABNORMAL ECG WHEN COMPARED WITH ECG OF 19-OCT-2017 15:51, NO SIGNIFICANT CHANGE WAS FOUND BASELINE ARTIFACT Confirmed by STEPHANE FARLEY, MONTY ([id number]) on 10/21/2017 1:15:23 PM Referred By: Confirmed By:MONTY CALDERÓN MD
--- NOTE | 2017-10-21 13:23 | EKG ---
Test Reason : Blood Pressure : / mmHG Vent. Rate : 085 BPM Atrial Rate : 085 BPM P-R Int : 140 ms QRS Dur : 086 ms QT Int : 378 ms P-R-T Axes : 061 -32 038 degrees QTc Int : 449 ms NORMAL SINUS RHYTHM POSSIBLE LEFT ATRIAL ENLARGEMENT LEFT AXIS DEVIATION ABNORMAL ECG WHEN COMPARED WITH ECG OF 04-SEP-2017 17:34, NO SIGNIFICANT CHANGE WAS FOUND BASELINE ARTIFACT Confirmed by STEPHANE FARLEY, MONTY ([id number]) on 10/21/2017 1:22:31 PM Referred By: Confirmed By:MONTY CALDERÓN MD
--- NOTE | 2017-10-21 16:17 | PN ---
S CIWA - CIWA Score Nausea/Vomitin Muscle Tremors: 4-Moderate,w/Arms Extend Anxiety: 3 Agitation: 2 Paroxysmal Sweats: No Perspiration Orientation: 2-Disoriented Date<2 days Tacttile Disturbances: 3-Moderate Itch/Numb/Burn Auditory Disturbances: 0-None Visual Disturbances: 0-None Headache: 0-None Present CIWA-Ar Total Score: 17 BHS Progress Note (SOAP) Subjective: Stomach Cramping, Nausea, Diarrhea, Anxious, Body Aches, Tremors. Objective: PT A & O X 2 (UNCERTAIN ABOUT CURRENT DAY/ DATE). PT. OBSERVED AMBULATING ON UNIT. NO ACUTE DISTRESS. 10/21/17 16:18 Vital Signs Temperature 96.1 F L 10/21/17 10:55 Pulse Rate 77 10/21/17 10:55 Respiratory Rate 18 10/21/17 10:55 Blood Pressure 106/67 10/21/17 10:55 O2 Sat by Pulse Oximetry (%) Laboratory Tests 10/19/17 10/19/17 10/19/17 12:00 15:00 15:00 WBC 12.7 H D RBC 4.65 Hgb 13.3 Hct 40.1 MCV 86.4 MCH 28.6 MCHC 33.2 RDW 14.6 Plt Count 269 MPV 8.1 Sodium 138 Potassium 3.7 Chloride 103 Carbon Dioxide 31 Anion Gap 4 L BUN 21 H D Creatinine 0.7 Creat Clearance w eGFR > 60 POC Glucometer Random Glucose 116 H D Calcium 8.5 Total Bilirubin 1.0 D AST 22 D ALT 27 Alkaline Phosphatase 81 D Total Protein 8.1 Albumin 4.1 Urine Color Urine Appearance Urine pH Ur Specific [place] Urine Protein Urine Glucose (UA) Urine Ketones Urine Blood Urine Nitrite Urine Bilirubin Urine Urobilinogen Ur Leukocyte Esterase RPR Titer HIV 1&2 Antibody Screen Negative HIV P24 Antigen Negative 10/19/17 10/19/17 10/19/17 15:00 15:00 16:25 WBC RBC Hgb Hct MCV MCH MCHC RDW Plt Count MPV Sodium Potassium Chloride Carbon Dioxide Anion Gap BUN Creatinine Creat Clearance w eGFR POC Glucometer 153 Random Glucose Calcium Total Bilirubin AST ALT Alkaline Phosphatase Total Protein Albumin Urine Color Yellow Urine Appearance Turbid Urine pH 5.0 Ur Specific [place] 1.031 Urine Protein 1+ H Urine Glucose (UA) Negative Urine Ketones Trace H Urine Blood Negative Urine Nitrite Negative Urine Bilirubin Negative Urine Urobilinogen Negative Ur Leukocyte Esterase Negative RPR Titer Nonreactive HIV 1&2 Antibody Screen HIV P24 Antigen 10/19/17 10/20/17 10/20/17 22:04 05:19 16:00 WBC RBC Hgb Hct MCV MCH MCHC RDW Plt Count MPV Sodium Potassium Chloride Carbon Dioxide Anion Gap BUN Creatinine Creat Clearance w eGFR POC Glucometer 180 185 226 Random Glucose Calcium Total Bilirubin AST ALT Alkaline Phosphatase Total Protein Albumin Urine Color Urine Appearance Urine pH Ur Specific [place] Urine Protein Urine Glucose (UA) Urine Ketones Urine Blood Urine Nitrite Urine Bilirubin Urine Urobilinogen Ur Leukocyte Esterase RPR Titer HIV 1&2 Antibody Screen HIV P24 Antigen 10/20/17 20:58 WBC RBC Hgb Hct MCV MCH MCHC RDW Plt Count MPV Sodium Potassium Chloride Carbon Dioxide Anion Gap BUN Creatinine Creat Clearance w eGFR POC Glucometer 184 Random Glucose Calcium Total Bilirubin AST ALT Alkaline Phosphatase Total Protein Albumin Urine Color Urine Appearance Urine pH Ur Specific [place] Urine Protein Urine Glucose (UA) Urine Ketones Urine Blood Urine Nitrite Urine Bilirubin Urine Urobilinogen Ur Leukocyte Esterase RPR Titer HIV 1&2 Antibody Screen HIV P24 Antigen LABS NOTED. Assessment: 10/21/17 16:18 WITHDRAWAL SYMPTOMS. Plan: CONTINUE DETOX. PRN ZOFRAN SL FOR NAUSEA. PRN IMMODIUM FOR DIARRHEA.
[2017-10-21] MEDS: chlordiazePOXIDE 5 MG CAPSULE PO SCH ×2 (17:44→22:32)
[2017-10-21] MEDS: INSULIN DETEMIR 100 UNITS/ML MDV SQ SCH (22:31)
[2017-10-21] MEDS: traZODone HCL 50 MG TABLET (FP) PO SCH (22:32)
[2017-10-21] MEDS: THIAMINE HCL 100 MG TABLET (FP) PO SCH (22:32)
[2017-10-21] MEDS: QUEtiapine FUMARATE 200 MG TABLET PO SCH (22:32)
[2017-10-22] MEDS: chlordiazePOXIDE 5 MG CAPSULE PO SCH ×2 (05:55→10:18)
[2017-10-22] MEDS: LEVOTHYROXINE NA 25 MCG TABLET (FP) PO SCH (06:19)
[2017-10-22] MEDS ORDERED: INSULIN (NOVOLOG) ASPART 100 UNITS/ML 10ML VIAL ONE (06:52)
[2017-10-22] MEDS: INSULIN SLIDING SCALE (NOVOLOG) 1 VIAL SQ SCH ×2 (07:50→16:31)
[2017-10-22] MEDS: SERTRALINE HCL 50 MG TABLET (FP) PO SCH (10:18)
[2017-10-22] MEDS: ERYTHROMYCIN 0.5% OPHTHALMIC OINTMENT 3.5 GM TUBE OD SCH (10:18)
[2017-10-22] MEDS: PRENATAL VITAMINS W/ FOLIC ACID TABLET (FP) PO SCH (10:18)
[2017-10-22] MEDS: ASPIRIN 81 MG CHEWABLE TABLETS PO SCH (10:18)
[2017-10-22] MEDS: NICOTINE 21 MG/24 HOURS TOPICAL PATCH TD SCH (10:18)
[2017-10-22] MEDS: NIFEdipine E.R 60 MG TABLET (UD) PO SCH (10:18)
--- NOTE | 2017-10-22 10:40 | PN ---
S Progress Note (SOAP) Subjective: ANXIETY,SWEATS,FATIGUE,NAUSEA/VOMITING--ON ZOFRAN. Objective: 10/22/17 10:39 Vital Signs Temperature 96.6 F L 10/22/17 09:03 Pulse Rate 79 10/22/17 09:03 Respiratory Rate 18 10/22/17 09:03 Blood Pressure 140/80 10/22/17 09:03 O2 Sat by Pulse Oximetry (%) Laboratory Last Values WBC 12.7 K/mm3 (4.0-10.0) H D 10/19/17 15:00 RBC 4.65 M/mm3 (4.00-5.60) 10/19/17 15:00 Hgb 13.3 GM/dL (11.7-16.9) 10/19/17 15:00 Hct 40.1 % (35.4-49) 10/19/17 15:00 MCV 86.4 fl (80-96) 10/19/17 15:00 MCH 28.6 pg (25.7-33.7) 10/19/17 15:00 MCHC 33.2 g/dl (32.0-35.9) 10/19/17 15:00 RDW 14.6 % (11.9-15.9) 10/19/17 15:00 Plt Count 269 K/MM3 (134-434) 10/19/17 15:00 MPV 8.1 fl (7.5-11.1) 10/19/17 15:00 Sodium 138 mmol/L (136-145) 10/19/17 15:00 Potassium 3.7 mmol/L (3.5-5.1) 10/19/17 15:00 Chloride 103 mmol/L (98-107) 10/19/17 15:00 Carbon Dioxide 31 mmol/L (21-32) 10/19/17 15:00 Anion Gap 4 (8-16) L 10/19/17 15:00 BUN 21 mg/dL (7-18) H D 10/19/17 15:00 Creatinine 0.7 mg/dL (0.7-1.3) 10/19/17 15:00 Creat Clearance w eGFR > 60 (>60) 10/19/17 15:00 POC Glucometer 215 UNITS (80-120) 10/22/17 05:56 Random Glucose 116 mg/dL (74-106) H D 10/19/17 15:00 Calcium 8.5 mg/dL (8.5-10.1) 10/19/17 15:00 Total Bilirubin 1.0 mg/dL (0.2-1.0) D 10/19/17 15:00 AST 22 U/L (15-37) D 10/19/17 15:00 ALT 27 U/L (12-78) 10/19/17 15:00 Alkaline Phosphatase 81 U/L (45-117) D 10/19/17 15:00 Total Protein 8.1 g/dl (6.4-8.2) 10/19/17 15:00 Albumin 4.1 g/dl (3.4-5.0) 10/19/17 15:00 Urine Color Yellow 10/19/17 15:00 Urine Appearance Turbid 10/19/17 15:00 Urine pH 5.0 (5.0-8.0) 10/19/17 15:00 Ur Specific [place] 1.031 (1.001-1.035) 10/19/17 15:00 Urine Protein 1+ (NEGATIVE) H 10/19/17 15:00 Urine Glucose (UA) Negative (NEGATIVE) 10/19/17 15:00 Urine Ketones Trace (NEGATIVE) H 10/19/17 15:00 Urine Blood Negative (NEGATIVE) 10/19/17 15:00 Urine Nitrite Negative (NEGATIVE) 10/19/17 15:00 Urine Bilirubin Negative (NEGATIVE) 10/19/17 15:00 Urine Urobilinogen Negative mg/dL (0.2-1.0) 10/19/17 15:00 Ur Leukocyte Esterase Negative (NEGATIVE) 10/19/17 15:00 RPR Titer Nonreactive (NONREACTIVE) 10/19/17 15:00 HIV 1&2 Antibody Screen Negative 10/19/17 12:00 HIV P24 Antigen Negative 10/19/17 12:00 Assessment: 10/22/17 10:40 WITHDRAWAL SX Plan: CONTINUE DETOX ZOFRAN ORDERED.
[2017-10-22] MEDS: chlordiazePOXIDE HCL 10 MG CAPSULE PO SCH ×2 (17:31→22:23)
[2017-10-22] MEDS: THIAMINE HCL 100 MG TABLET (FP) PO SCH (22:23)
[2017-10-22] MEDS: QUEtiapine FUMARATE 200 MG TABLET PO SCH (22:23)
[2017-10-22] MEDS: traZODone HCL 50 MG TABLET (FP) PO SCH (22:24)
[2017-10-22] MEDS: INSULIN DETEMIR 100 UNITS/ML MDV SQ SCH (22:24)
[2017-10-23] MEDS: chlordiazePOXIDE HCL 10 MG CAPSULE PO SCH ×2 (05:27→11:07)
[2017-10-23] MEDS ORDERED: INSULIN (NOVOLOG) ASPART 100 UNITS/ML 10ML VIAL ONE (06:57)
[2017-10-23] MEDS: INSULIN SLIDING SCALE (NOVOLOG) 1 VIAL SQ SCH (07:06)
[2017-10-23] MEDS: LEVOTHYROXINE NA 25 MCG TABLET (FP) PO SCH (07:07)
[2017-10-23 09:08] VITALS: TEMP 95.3
[2017-10-23] MEDS: SERTRALINE HCL 50 MG TABLET (FP) PO SCH (10:06)
[2017-10-23] MEDS: NIFEdipine E.R 60 MG TABLET (UD) PO SCH (10:06)
[2017-10-23] MEDS: NICOTINE 21 MG/24 HOURS TOPICAL PATCH TD SCH (10:06)
[2017-10-23] MEDS: ERYTHROMYCIN 0.5% OPHTHALMIC OINTMENT 3.5 GM TUBE OD SCH (10:06)
[2017-10-23] MEDS: PRENATAL VITAMINS W/ FOLIC ACID TABLET (FP) PO SCH (10:06)
--- NOTE | 2017-10-23 10:52 | DS ---
[facility] Detox Discharge Summary Admission Date: 10/19/17 Discharge Date: 10/23/17 - History Present History: Alcohol Dependence, Cocaine Dependence Additional Comments: DETOX COMPLETED.ALERT O X 3. NAD. PT HAS A PRIMARY CARE AT [facility]- [address] WITH PMD- DR GARCIA AND PSYCHIATRIST- DR FLOWERS. Pertinent Past History: SEE DX BELOW - Physical Exam Results Vital Signs: Vital Signs Temperature 95.3 F L 10/23/17 09:08 Pulse Rate 86 10/23/17 09:08 Respiratory Rate 18 10/23/17 09:08 Blood Pressure 129/81 10/23/17 09:08 O2 Sat by Pulse Oximetry (%) Pertinent Admission Physical Exam Findings: WITHDRAWAL SX Laboratory Last Values WBC 12.7 K/mm3 (4.0-10.0) H D 10/19/17 15:00 RBC 4.65 M/mm3 (4.00-5.60) 10/19/17 15:00 Hgb 13.3 GM/dL (11.7-16.9) 10/19/17 15:00 Hct 40.1 % (35.4-49) 10/19/17 15:00 MCV 86.4 fl (80-96) 10/19/17 15:00 MCH 28.6 pg (25.7-33.7) 10/19/17 15:00 MCHC 33.2 g/dl (32.0-35.9) 10/19/17 15:00 RDW 14.6 % (11.9-15.9) 10/19/17 15:00 Plt Count 269 K/MM3 (134-434) 10/19/17 15:00 MPV 8.1 fl (7.5-11.1) 10/19/17 15:00 Sodium 138 mmol/L (136-145) 10/19/17 15:00 Potassium 3.7 mmol/L (3.5-5.1) 10/19/17 15:00 Chloride 103 mmol/L (98-107) 10/19/17 15:00 Carbon Dioxide 31 mmol/L (21-32) 10/19/17 15:00 Anion Gap 4 (8-16) L 10/19/17 15:00 BUN 21 mg/dL (7-18) H D 10/19/17 15:00 Creatinine 0.7 mg/dL (0.7-1.3) 10/19/17 15:00 Creat Clearance w eGFR > 60 (>60) 10/19/17 15:00 POC Glucometer 214 UNITS (80-120) 10/23/17 05:26 Random Glucose 116 mg/dL (74-106) H D 10/19/17 15:00 Calcium 8.5 mg/dL (8.5-10.1) 10/19/17 15:00 Total Bilirubin 1.0 mg/dL (0.2-1.0) D 10/19/17 15:00 AST 22 U/L (15-37) D 10/19/17 15:00 ALT 27 U/L (12-78) 10/19/17 15:00 Alkaline Phosphatase 81 U/L (45-117) D 10/19/17 15:00 Total Protein 8.1 g/dl (6.4-8.2) 10/19/17 15:00 Albumin 4.1 g/dl (3.4-5.0) 10/19/17 15:00 Urine Color Yellow 10/19/17 15:00 Urine Appearance Turbid 10/19/17 15:00 Urine pH 5.0 (5.0-8.0) 10/19/17 15:00 Ur Specific [place] 1.031 (1.001-1.035) 10/19/17 15:00 Urine Protein 1+ (NEGATIVE) H 10/19/17 15:00 Urine Glucose (UA) Negative (NEGATIVE) 10/19/17 15:00 Urine Ketones Trace (NEGATIVE) H 10/19/17 15:00 Urine Blood Negative (NEGATIVE) 10/19/17 15:00 Urine Nitrite Negative (NEGATIVE) 10/19/17 15:00 Urine Bilirubin Negative (NEGATIVE) 10/19/17 15:00 Urine Urobilinogen Negative mg/dL (0.2-1.0) 10/19/17 15:00 Ur Leukocyte Esterase Negative (NEGATIVE) 10/19/17 15:00 RPR Titer Nonreactive (NONREACTIVE) 10/19/17 15:00 HIV 1&2 Antibody Screen Negative 10/19/17 12:00 HIV P24 Antigen Negative 10/19/17 12:00 - Treatment Hospital Course: Detox Protocol Followed, Detoxed Safely, Responded well, Discharged Condition Good, Rehab Referral Accepted Patient has Accepted a Rehab Referral to: [facility] - Medication Discharge Medications: Ambulatory Orders Insulin (Novolog) [Novolog Flexpen -] 25 units SQ AC 06/22/17 Levothyroxine [Synthroid -] 25 mcg PO DAILY #30 mcg 06/26/17 Aspirin [ASA -] 81 mg PO DAILY 09/04/17 Nifedipine ER [Procardia XL -] 120 mg PO DAILY 09/04/17 Divalproex [Depakote -] 500 mg PO BID #60 tablet.ec 09/05/17 Quetiapine Fumarate [Seroquel -] 200 mg PO HS #30 tab 09/05/17 Sertraline HCl [Zoloft] 100 mg PO DAILY #30 tablet 09/05/17 Insulin (Levemir) [Levemir Flexpen -] 35 units SQ HS 10/19/17 Quetiapine Fumarate [Seroquel -] 200 mg PO HS #30 tab 10/19/17 Sertraline HCl [Zoloft] 100 mg PO DAILY #30 tablet 10/19/17 Trazodone HCl [Desyrel -] 50 mg PO HS #30 tablet 10/19/17 - Diagnosis (1) Cocaine dependence Current Visit: Yes Status: Acute Qualifiers: Substance use status: uncomplicated Qualified Code(s): F14.20 - Cocaine dependence, uncomplicated (2) Seizure disorder Current Visit: Yes Status: Suspected (3) Alcohol dependence with uncomplicated withdrawal Current Visit: Yes Status: Acute (4) History of hypothyroidism Current Visit: Yes Status: Chronic (5) Hypertension Current Visit: Yes Status: Chronic Qualifiers: Hypertension type: essential hypertension Qualified Code(s): I10 - Essential (primary) hypertension (6) IDDM (insulin dependent diabetes mellitus) Current Visit: Yes Status: Chronic (7) Nicotine dependence Current Visit: Yes Status: Acute Qualifiers: Nicotine product type: cigarettes Substance use status: uncomplicated Qualified Code(s): F17.210 - Nicotine dependence, cigarettes, uncomplicated (8) Hypercholesteremia Current Visit: Yes Status: Suspected - AMA Did Patient Leave Against Medical Advice: No
[2017-10-23] MEDS: ASPIRIN 81 MG CHEWABLE TABLETS PO SCH (11:07)
[2017-10-23] MEDS ORDERED: DIVALPROEX SODIUM 500 MG TABLET E.C. PO SCH (11:15)
[2017-10-23 13:33] VITALS: BP 147/81; PULSE 101
== END 2017-10-23 13:24 | disposition home or self-care (01) | DRG 774 ==
LOC: YASAS 08:31 → Y3N 14:29
PROVIDERS: ADMIT Internal Medicine; ATTEND Internal Medicine
PROC: HZ2ZZZZ Detoxification Services for Substance Abuse Treatment (ICD-10-PCS; principal; 2017-10-19)
DX: F10.230 Alcohol dependence with withdrawal, uncomplicated (principal); F14.20 Cocaine dependence, uncomplicated; F17.210 Nicotine dependence, cigarettes, uncomplicated; F19.24 Other psychoactive substance dependence with psychoactive substance-induced mood disorder; F20.9 Schizophrenia, unspecified; E03.9 Hypothyroidism, unspecified; I10 Essential (primary) hypertension; E11.9 Type 2 diabetes mellitus without complications; E78.00 Pure hypercholesterolemia, unspecified; G40.909 Epilepsy, unspecified, not intractable, without status epilepticus; G47.00 Insomnia, unspecified; K21.9 Gastro-esophageal reflux disease without esophagitis; Z79.4 Long term (current) use of insulin; Z91.013 Allergy to seafood; Z88.0 Allergy status to penicillin; Z88.8 Allergy status to other drugs, medicaments and biological substances; Z91.5 Personal history of self-harm
CPT/HCPCS: 36415; 80053; 81003; 81015; 82962; 85027; 86593; 87389; 93005; 93010

== ENCOUNTER 2017-12-10 08:42 | Inpatient (IN) | payer OTHER ==
[2017-12-10 10:44] VITALS: BMI 31.9
--- NOTE | 2017-12-10 12:44 | HP ---
COWS - Scale Resting Pulse: 1= [place] 81-100 (Patient is sweaty) Sweatin= Chills/Flushing Restless Observation: 1= Difficult to Sit Still Pupil Size: 1= Pupils >than Normal Bone or Joint Aches: 2= Severe Diffuse Aches Runny Nose/ Eye Tearin= Runny Nose/Eyes GI Upset > 30mins: 2= Nausea/Diarrhea Tremor Observation: 1= Tremor [place], Not Seen Yawning Observation: 0= None Anxiety or Irritability: 2=Irritable/Anxious Goose Flesh Skin: 0=Smooth Skin COWS Score: 13 CIWA Score - CIWA Score Nausea/Vomitin-Mild Nausea/No Vomiting Muscle Tremors: 1-None Visible, but [place] Anxiety: 3 Agitation: 1-Slight > Activity Paroxysmal Sweats: 1-Minimal Palms Moist Orientation: 0-Oriented Tacttile Disturbances: 2-Mild Itch/Numbness/Burn Auditory Disturbances: 2-Mild Harshness/Frighten Visual Disturbances: 2-Mild Sensitivity Headache: 2-Mild CIWA-Ar Total Score: 15 Admission [facility] Chief Complaint: Patient presents with heroin and ETOH withdrawal. Allergies/Adverse Reactions: Allergies Allergy/AdvReac Type Severity Reaction Status Date / Time Fish Containing Products Allergy Severe Swelling Verified 12/10/17 11:25 fluphenazine enanthate Allergy Severe Rash Verified 12/10/17 11:25 [From Prolixin] fluphenazine HCl Allergy Severe Rash Verified 12/10/17 11:25 [From Prolixin] Penicillins Allergy Severe Swelling Verified 12/10/17 11:25 History of Present Illness: Patient presents for ETOH and Heroin withdrawal symptoms. Has history of DM, Schizophrenia, HTN, HLD and Hypothyroidism. Last use of heroin/cocaine/ETOH earlier this morning. Pt sniffed heroin this morning but also has history of injecting with overdose. Has history of multiple seizures and reports he was treated for seizures with medication. Last one 10/2017. State he drinks a fifth of Scot savage daily. Was admitted to [facility] 10/2017 for detox but did not follow up with Rehab after discharge. Denies SI and/or recent attempts. Exam Limitations: No Limitations - Ebola screening Have you traveled outside of the country in the last 21 days: No (N) Have you had contact with anyone from an Ebola affected area: No Have you been sick,other than usual withdrawal symptoms: No Do you have a fever: No - Review of Systems Constitutional: Night Sweats, Changes in sleep, Unexplained wgt Loss EENT: reports: Hearing Loss, Nose Bleeding, Nose Congestion Respiratory: reports: Cough, SOB with Exertion Cardiac: reports: No Symptoms Reported GI: reports: Nausea, Poor Appetite, Poor Fluid Intake, Abdominal cramping : reports: No Symptoms Reported Musculoskeletal: reports: Back Pain, Joint Pain, Muscle Pain Integumentary: reports: No Symptoms Reported, Pruritus, Sweating Neuro: reports: Headache, Seizure (last seizure 10/2017), Tremors Endocrine: reports: Increased Thirst, Unexplained Weight Loss Hematology: reports: No Symptoms Reported Psychiatric: reports: No Sypmtoms Reported, Anxious, Depressed Patient History - Patient Medical History Hx Anemia: Yes (REPORTS HX) Hx Asthma: No Hx Chronic Obstructive Pulmonary Disease (COPD): No Hx Cancer: No Hx Cardiac Disorders: No Hx Congestive Heart Failure: No Hx Hypertension: Yes (Pt is on meds.) Hx Hypercholesterolemia: Yes (no medication) HX Cerebrovascular Accident: No Hx Seizures: Yes (Last seizure 10/2017) Hx Diabetes: Yes (IDDM) Hx Gastrointestinal Disorders: No Hx Liver Disease: No Hx Genitourinary Disorders: No Hx Sexually Transmitted Disorders: No Hx Renal Disease (ESRD): No Hx Thyroid Disease: Yes (ON SYNTHROID) Hx Human Immunodeficiency Virus (HIV): No (NEGATIVE HX) Hx Hepatitis C: No Hx Depression: No Hx Suicide Attempt: Yes (Tried to jump from a window in 2016, Denies SI. No recent S/A) Hx Bipolar Disorder: No Hx Schizophrenia: Yes - Patient Surgical History Past Surgical History: Yes Hx Neurologic Surgery: No Hx Cataract Extraction: No Hx Cardiac Surgery: No Hx Lung Surgery: No Hx Breast Surgery: No Hx Breast Biopsy: No Hx Abdominal Surgery: No Hx Appendectomy: No Hx Cholecystectomy: No Hx Genitourinary Surgery: No Hx Orthopedic Surgery: No Other Surgical History: R wrist tendon repair in 2014. Anesthesia Reaction: No - PPD History Previous Implant?: Yes Documented Results: Negative w/proof Implanted On Prior [facility] Admission?: Yes Date: 06/24/17 Results: 0 MM - Smoking Cessation Smoking history: Current every day smoker Have you smoked in the past 12 months: Yes Aproximately how many cigarettes per day: 30 Hx Chewing Tobacco Use: No Initiated information on smoking cessation: Yes 'Breaking Loose' booklet given: 12/10/17 - Substance & Tx. History Hx Alcohol Use: Yes Hx Substance Use: Yes Substance Use Type: Alcohol, Cocaine, Heroin Hx Substance Use Treatment: Yes - Substances Abused Heroin Route: Inhalation Frequency: Daily Amount used: 1 GRAM Age of first use: 15 Date of Last Use: 12/09/17 Alcohol Route: Oral Frequency: Daily Amount used: 1-2 PINTS JOSE Age of first use: 15 Date of Last Use: 12/09/17 Cocaine Route: Inhalation Frequency: Daily Amount used: $20 Age of first use: 15 Date of Last Use: 12/09/17 Family Disease History - Family Disease History Family Disease History: Diabetes: Grandparent (HTN;STROKE-), Mother (HTN -), Other: Grandparent, Father (ALCOHOLISM-), Mother Admission Physical Exam [facility] - Vital Signs Vital Signs: Vital Signs - 24 hr 12/10/17 10:41 Temperature 97 F L Pulse Rate 82 Respiratory 20 Rate Blood Pressure 139/77 - Physical General Appearance: Yes: Within Normal Limits, Disheveled, Sweating, Anxious HEENTM: Yes: Within Normal Limits, EOMI, Hearing grossly Normal, Normal ENT Inspection, Normocephalic, Normal Voice, JEANNETTE Respiratory: Yes: Within Normal Limits, Normal Breath Sounds, No Respiratory Distress, No Accessory Muscle Use Neck: Yes: Within Normal Limits, No masses,lesions,Nodules Breast: Yes: Breast Exam Deferred Cardiology: Yes: Within Normal Limits, Regular Rhythm, Regular Rate, S1, S2 Abdominal: Yes: Within Normal Limits, Normal Bowel Sounds, Non Tender, Flat, Soft Genitourinary: Yes: Within Normal Limits Back: Yes: Within Normal Limits, Normal Inspection, Muscle Spasm Musculoskeletal: Yes: Gait Steady, Back pain, Joint swelling, Muscle weakness Extremities: Yes: Within Normal Limits, Normal Inspection, Normal Range of Motion Neurological: Yes: Fully Oriented, Alert, Depressed Affect Integumentary: Yes: Within Normal Limits, Normal Color, Moist - Diagnostic (1) Anxiety Status: Chronic (2) Opioid dependence with withdrawal Status: Chronic (3) Alcohol dependence with uncomplicated withdrawal Status: Chronic (4) Cocaine dependence Status: Chronic Qualifiers: Substance use status: uncomplicated Qualified Code(s): F14.20 - Cocaine dependence, uncomplicated (5) History of hypothyroidism Status: Chronic (6) Hypertension Status: Chronic Qualifiers: Hypertension type: essential hypertension Qualified Code(s): I10 - Essential (primary) hypertension Cleared for Admission [facility] - Detox or Rehab [facility] Level of Care: Medically Managed Detox Regimen/Protocol: Methadone/Librium [facility] Breath Alcohol Content Breath Alcohol Content: 0 Urine Drug Screen - Results Drug Screen Negative: No Urine Drug Screen Results: OCTAVIO-Cocaine, OPI-Opiates Inpatient Rehab Admission - Initial Determination Are CD services needed?: Yes Free of communicable disease: Yes Not in need of hospitalization: Yes - Rehab Admission Criteria Previous failed treatment: Yes Poor recovery environment: Yes Comorbidities: Yes Lacks judgement: Yes
[2017-12-10] MEDS ORDERED: MENTHOL/PHENOL 1 EACH UD MM PRN (13:07)
[2017-12-10] MEDS ORDERED: LOPERAMIDE HCL 2 MG CAPSULE PO PRN (13:07)
[2017-12-10] MEDS ORDERED: MAGNESIUM HYDROX 2400MG/30ML ORAL SUSPENSION 30 ML CUP PO PRN (13:07)
[2017-12-10] MEDS ORDERED: ACETAMINOPHEN 325 MG TABLET (FP) PO PRN (13:07)
[2017-12-10] MEDS ORDERED: P-EPHED 60MG/TRIPROLIDI 2.5MG TABLET PO PRN (13:07)
[2017-12-10] MEDS ORDERED: IBUPROFEN 400 MG TABLET (FP) PO PRN (13:07)
[2017-12-10] MEDS ORDERED: MAG HYDROX/AL HYDROX/SIMETH 30 ML UNIT-DOSE CUP PO PRN (13:07)
[2017-12-10] MEDS ORDERED: guaiFENesin/D-METHORPHAN HB 10 ML UNIT-DOSE CUPS PO PRN (13:07)
[2017-12-10] MEDS ORDERED: MAGNESIUM CITRATE 300 ML BOTTLE PO PRN (13:07)
[2017-12-10] MEDS ORDERED: chlordiazePOXIDE HCL 25 MG CAPSULE PO PRN (13:13)
[2017-12-10] MEDS ORDERED: METHADONE HCL 10 MG TABLET (FOR DETOX USE ONLY) PO ONE ×2 (14:10→23:00)
[2017-12-10] MEDS ORDERED: chlordiazePOXIDE HCL 25 MG CAPSULE PO ONE (14:10)
--- NOTE | 2017-12-10 15:46 | CONSULT ---
[facility] Psychiatric Consult - Data Date of interview: 12/10/17 Identifying data: This is 52 years old male, single, father of one, homeless, unemployed, on PA, with history of Bipolar disorder, Schizophrenia, with no historty of psychiatric hospitalization. Patient presents for ETOH and Heroin withdrawal symptoms. Urine sample is positive for: Cocaine, Heroin Substance Abuse History: - Smoking Cessation. Smoking history: Current every day smoker. Have you smoked in the past 12 months: Yes. Aproximately how many cigarettes per day: 30. Hx Chewing Tobacco Use: No. 'Breaking Loose' booklet given: 12/10/17. - Substances Abused. Heroin. Route: Inhalation. Frequency: Daily. Amount used: 1 GRAM. Age of first use: 15. Date of Last Use : 12/09/17. Alcohol. Route: Oral. Frequency: Daily. Amount used: 1-2 PINTS JOSE. Age of first use: 15. Date of Last Use: 12/09/17. Cocaine. Route: Inhalation. Frequency: Daily. Amount used: $20. Age of first use: 15. Date of Last Use: 12/09/17 Medical History: Patient reports history of HTN, HLD and Hypothyroidism. Has history of multiple seizures and reports he was treated for seizures with medication. Last one 10/2017. Denies suicidal and homicadal history. Psychiatric History: Patient reports unclear history of Schizophrenia and Bipolar Disorder, reports taking prior to admission: Trazodone 50mg joshua qhs. Zoloft 100mg po qhs. Depakote 500mg po bid. Seroquel 200mg po qhs. Patient reports no0 psychiatric hospitalization history, denies suicidal amd homicadal history. Physical/Sexual Abuse/Trauma History: Denies Additional Comment: Trazodone 50mg joshua qhs. Zoloft 100mg po qhs. Depakote 500mg po bid. Seroquel 200mg po qhs Mental Status Exam - Mental Status Exam Alert and Oriented to: Person Cognitive Function: Fair Patient Appearance: Unkempt Mood: Sad Affect: Flat Patient Behavior: Sedated Speech Pattern: Delayed Voice Loudness: Moderately Soft/Quiet Thought Process: Circumstantial Thought Disorder: Being Controlled Hallucinations: Denies Suicidal Ideation: Denies Homicidal Ideation: Denies Insight/Judgement: Fair Sleep: Difficulty falling asleep Appetite: Weight gain Muscle strength/Tone: Mild Hypotonicity Gait/Station: Shuffling Additional Comments: Trazodone 50mg joshua qhs. Zoloft 100mg po qhs. Depakote 500mg po bid. Seroquel 200mg po qhs Psychiatric Findings - Problem List ([place]adie 1, 2,3) (1) Alcohol dependence with uncomplicated withdrawal Current Visit: No Status: Acute (2) Cocaine dependence Current Visit: No Status: Acute Qualifiers: Substance use status: uncomplicated Qualified Code(s): F14.20 - Cocaine dependence, uncomplicated (3) Nicotine dependence Current Visit: No Status: Acute Qualifiers: Nicotine product type: cigarettes Substance use status: uncomplicated Qualified Code(s): F17.210 - Nicotine dependence, cigarettes, uncomplicated (4) Schizophrenia Current Visit: No Status: Suspected (5) Substance induced mood disorder Current Visit: No Status: Acute (6) History of hypothyroidism Current Visit: No Status: Chronic (7) Hypertension Current Visit: No Status: Chronic Qualifiers: Hypertension type: essential hypertension Qualified Code(s): I10 - Essential (primary) hypertension (8) IDDM (insulin dependent diabetes mellitus) Current Visit: No Status: Chronic (9) Schizophrenia Current Visit: No Status: Suspected (10) Hypercholesteremia Current Visit: No Status: Suspected (11) Seizure disorder Current Visit: No Status: Suspected - Initial Treatment Plan Initial Treatment Plan: Trazodone 50mg joshua qhs. Zoloft 100mg po qhs. Depakote 500mg po bid. Seroquel 200mg po qhs. Depakote blood level
[2017-12-10] MEDS ORDERED: INSULIN SLIDING SCALE (NOVOLOG) 1 VIAL SQ SCH (16:30)
[2017-12-10 16:45] LABS: URINE APPEARANCE CLEAR; URINE BILIRUBIN NEGATIVE (<2.0 mg/dL); URINE BLOOD NEGATIVE (NEGATIVE); URINE COLOR LTYELLOW; URINE GLUCOSE (UA) 1+ (NEGATIVE); URINE KETONE NEGATIVE (NEGATIVE); URINE LEUK ESTERASE NEGATIVE (NEGATIVE); URINE NITRITE NEGATIVE (NEGATIVE); URINE PROTEIN NEGATIVE (NEGATIVE); URINE UROBILINOGEN NEGATIVE mg/dL (0.2-1.0)
[2017-12-10] MEDS: chlordiazePOXIDE HCL 25 MG CAPSULE PO SCH ×2 (18:06→22:10)
[2017-12-10] MEDS: INSULIN SLIDING SCALE (NOVOLOG) 1 VIAL SQ SCH (18:07)
[2017-12-10] MEDS ORDERED: SERTRALINE HCL 50 MG TABLET (FP) PO SCH (22:00)
[2017-12-10] MEDS: THIAMINE HCL 100 MG TABLET (FP) PO SCH (22:10)
[2017-12-10] MEDS: DIVALPROEX SODIUM 500 MG TABLET E.C. PO SCH (22:13)
[2017-12-10] MEDS: SERTRALINE HCL 50 MG TABLET (FP) PO SCH (22:58)
[2017-12-10] MEDS: traZODone HCL 50 MG TABLET (FP) PO SCH (22:58)
[2017-12-10] MEDS: QUEtiapine FUMARATE 200 MG TABLET PO SCH (22:58)
[2017-12-10] MEDS: MELATONIN 5 MG TABLETS PO SCH (22:58)
[2017-12-11] MEDS: chlordiazePOXIDE HCL 25 MG CAPSULE PO SCH ×4 (05:36→22:30)
[2017-12-11] MEDS ORDERED: INSULIN (NOVOLOG) ASPART 100 UNITS/ML 10ML VIAL ONE (06:31)
[2017-12-11] MEDS: INSULIN SLIDING SCALE (NOVOLOG) 1 VIAL SQ SCH ×2 (06:32→18:06)
[2017-12-11] MEDS: LEVOTHYROXINE NA 25 MCG TABLET (FP) PO SCH (06:46)
[2017-12-11] MEDS ORDERED: diphenhydrAMINE HCL 25 MG CAPSULE (FP) PO PRN (08:48)
[2017-12-11] MEDS ORDERED: METHADONE HCL 10 MG TABLET (FOR DETOX USE ONLY) PO SCH (10:00)
[2017-12-11] MEDS: ASPIRIN 81 MG CHEWABLE TABLETS PO SCH (10:04)
[2017-12-11] MEDS: DIVALPROEX SODIUM 500 MG TABLET E.C. PO SCH ×2 (10:04→22:19)
[2017-12-11] MEDS: NIFEdipine E.R 60 MG TABLET (UD) PO SCH (10:04)
[2017-12-11] MEDS: PRENATAL VITAMINS W/ FOLIC ACID TABLET (FP) PO SCH (10:04)
[2017-12-11 10:12] LABS: HEMATOCRIT 40.1 % (35.4-49); HEMOGLOBIN 13.5 GM/dL (11.7-16.9); MCH 29.5 pg (25.7-33.7); MCHC 33.7 g/dl (32.0-35.9); MEAN CELL VOLUME 87.6 fl (80-96); MEAN PLT VOLUME 8.2 fl (7.5-11.1); PLATELET COUNT 270 K/MM3 (134-434); RBC 4.58 M/mm3 (4.00-5.60); RDW 14.9 % (11.9-15.9); WHITE BLOOD COUNT 10.3 K/mm3 (4.0-10.0)
--- NOTE | 2017-12-11 10:12 | PN ---
S CIWA - CIWA Score Nausea/Vomitin Muscle Tremors: 3 Anxiety: 3 Agitation: 3 Paroxysmal Sweats: 1-Minimal Palms Moist Orientation: 0-Oriented Tacttile Disturbances: 1-Very Mild Itch/Numbness Auditory Disturbances: 1-Very Mild Visual Disturbances: 0-None Headache: 2-Mild CIWA-Ar Total Score: 17 BHS COWS - Scale Resting Pulse: 1= [place] 81-100 Sweatin= Chills/Flushing Restless Observation: 3= Extraneous Movement Pupil Size: 1= Pupils >than Normal Bone or Joint Aches: 2= Severe Diffuse Aches Runny Nose/ Eye Tearin= Runny Nose/Eyes GI Upset > 30mins: 3= Vomiting/Diarrhea Tremor Observation of Outstretched Hands: 2= Slight Tremor Visible Yawning Observation: 1= 1-2x During Session Anxiety or Irritability: 2=Irritable/Anxious Goose Flesh Skin: 0=Smooth Skin COWS Score: 18 S Progress Note (SOAP) Subjective: ALERT,IRRITABLE,ANXIOUS,INTERRUPTED SLEEP,TREMOR,PAIN IN THE BODY,HISTORY OF URTICARIA Objective: 12/11/17 10:08 Vital Signs Temperature 96.1 F L 12/11/17 09:42 Pulse Rate 84 12/11/17 09:42 Respiratory Rate 18 12/11/17 09:42 Blood Pressure 156/82 12/11/17 09:42 O2 Sat by Pulse Oximetry (%) EKG NSR Laboratory Last Values POC Glucometer 173 UNITS (80-120) 12/11/17 05:35 Urine Color Ltyellow 12/10/17 15:20 Urine Appearance Clear 12/10/17 15:20 Urine pH 6.0 (5.0-8.0) 12/10/17 15:20 Ur Specific [place] 1.013 (1.001-1.035) 12/10/17 15:20 Urine Protein Negative (NEGATIVE) 12/10/17 15:20 Urine Glucose (UA) 1+ (NEGATIVE) H 12/10/17 15:20 Urine Ketones Negative (NEGATIVE) 12/10/17 15:20 Urine Blood Negative (NEGATIVE) 12/10/17 15:20 Urine Nitrite Negative (NEGATIVE) 12/10/17 15:20 Urine Bilirubin Negative (<2.0 mg/dL) 03/26/18 15:20 Urine Urobilinogen Negative mg/dL (0.2-1.0) 12/10/17 15:20 Ur Leukocyte Esterase Negative (NEGATIVE) 12/10/17 15:20 LABS PENDING Assessment: 12/11/17 10:10 WITHDRAWAL SYMPTOM Plan: CONTINUE DETOX,AMBULATION WITH CANE FOR 3 YEARS FOR PAIN IN THE RIGHT HIP,BGM MONITORING WITH INSULIN COVERAGE,HISTORY OF URTICARIA ON BENADRYL 25 MGS PO Q 6HRS PRN
[2017-12-11 10:24] LABS: CHLORIDE 104 mmol/L (98-107); POTASSIUM 3.6 mmol/L (3.5-5.1); SODIUM 140 mmol/L (136-145)
[2017-12-11 10:38] LABS: ALBUMIN 3.6 g/dl (3.4-5.0); ALK PHOS 107 U/L (45-117); ANION GAP 5 (8-16); BILIRUBIN,TOTAL 0.3 mg/dL (0.2-1.0); BLOOD UREA NITROGEN 11 mg/dL (7-18); CALCIUM 8.3 mg/dL (8.5-10.1); CO2 31 mmol/L (21-32); CREATININE 0.8 mg/dL (0.7-1.3); GLUCOSE,RANDOM 149 mg/dL (74-106); SGOT/AST 26 U/L (15-37); SGPT/ALT 45 U/L (12-78); TOT PROT 7.1 g/dl (6.4-8.2)
--- NOTE | 2017-12-11 16:51 | EKG ---
Test Reason : Blood Pressure : / mmHG Vent. Rate : 076 BPM Atrial Rate : 076 BPM P-R Int : 138 ms QRS Dur : 086 ms QT Int : 394 ms P-R-T Axes : 058 -36 020 degrees QTc Int : 443 ms NORMAL SINUS RHYTHM LEFT AXIS DEVIATION ABNORMAL ECG WHEN COMPARED WITH ECG OF 20-OCT-2017 10:35, NO SIGNIFICANT CHANGE WAS FOUND Confirmed by MD Keegan, Keshav ([id number]) on 12/11/2017 4:50:56 PM Referred By: Confirmed By:Keshav Allison MD
[2017-12-11] MEDS: INSULIN DETEMIR 100 UNITS/ML MDV SQ SCH (22:17)
[2017-12-11] MEDS: THIAMINE HCL 100 MG TABLET (FP) PO SCH (22:18)
[2017-12-11] MEDS: MELATONIN 5 MG TABLETS PO SCH (22:18)
[2017-12-11] MEDS: SERTRALINE HCL 50 MG TABLET (FP) PO SCH (22:19)
[2017-12-11] MEDS: traZODone HCL 50 MG TABLET (FP) PO SCH (22:30)
[2017-12-11] MEDS: QUEtiapine FUMARATE 200 MG TABLET PO SCH (22:31)
[2017-12-12] MEDS: chlordiazePOXIDE HCL 25 MG CAPSULE PO SCH ×2 (05:34→10:30)
[2017-12-12] MEDS: LEVOTHYROXINE NA 25 MCG TABLET (FP) PO SCH (06:54)
[2017-12-12] MEDS: INSULIN SLIDING SCALE (NOVOLOG) 1 VIAL SQ SCH ×2 (06:54→17:39)
--- NOTE | 2017-12-12 09:38 | PN ---
S CIWA - CIWA Score Nausea/Vomitin Muscle Tremors: 3 Anxiety: 3 Agitation: 3 Paroxysmal Sweats: 2 Orientation: 0-Oriented Tacttile Disturbances: 1-Very Mild Itch/Numbness Auditory Disturbances: 1-Very Mild Visual Disturbances: 0-None Headache: 2-Mild CIWA-Ar Total Score: 18 BHS COWS - Scale Resting Pulse: 0= [place] 80 or Below Sweatin= Chills/Flushing Restless Observation: 3= Extraneous Movement Pupil Size: 1= Pupils >than Normal Bone or Joint Aches: 2= Severe Diffuse Aches Runny Nose/ Eye Tearin= Runny Nose/Eyes GI Upset > 30mins: 2= Nausea/Diarrhea Tremor Observation of Outstretched Hands: 2= Slight Tremor Visible Yawning Observation: 2= >3x During Session Anxiety or Irritability: 2=Irritable/Anxious Goose Flesh Skin: 0=Smooth Skin COWS Score: 17 BHS Progress Note (SOAP) Subjective: ALERT,IRRITABLE,ANXIOUS,INTERRUPTED SLEEP,TREMOR,PAIN IN THE BODY AND BACK Objective: 12/12/17 09:37 Vital Signs Temperature 98.2 F 12/12/17 06:27 Pulse Rate 79 12/12/17 06:27 Respiratory Rate 18 12/12/17 06:27 Blood Pressure 138/86 12/12/17 06:27 O2 Sat by Pulse Oximetry (%) 12/12/17 09:37 Laboratory Last Values WBC 10.3 K/mm3 (4.0-10.0) H 12/11/17 05:50 RBC 4.58 M/mm3 (4.00-5.60) 12/11/17 05:50 Hgb 13.5 GM/dL (11.7-16.9) 12/11/17 05:50 Hct 40.1 % (35.4-49) 12/11/17 05:50 MCV 87.6 fl (80-96) 12/11/17 05:50 MCH 29.5 pg (25.7-33.7) 12/11/17 05:50 MCHC 33.7 g/dl (32.0-35.9) 12/11/17 05:50 RDW 14.9 % (11.9-15.9) 12/11/17 05:50 Plt Count 270 K/MM3 (134-434) 12/11/17 05:50 MPV 8.2 fl (7.5-11.1) 12/11/17 05:50 Sodium 140 mmol/L (136-145) 12/11/17 05:50 Potassium 3.6 mmol/L (3.5-5.1) 12/11/17 05:50 Chloride 104 mmol/L (98-107) 12/11/17 05:50 Carbon Dioxide 31 mmol/L (21-32) 12/11/17 05:50 Anion Gap 5 (8-16) L 12/11/17 05:50 BUN 11 mg/dL (7-18) D 12/11/17 05:50 Creatinine 0.8 mg/dL (0.7-1.3) 12/11/17 05:50 Creat Clearance w eGFR > 60 (>60) 12/11/17 05:50 POC Glucometer 148 UNITS (80-120) 12/12/17 05:32 Random Glucose 149 mg/dL (74-106) H D 12/11/17 05:50 Calcium 8.3 mg/dL (8.5-10.1) L 12/11/17 05:50 Total Bilirubin 0.3 mg/dL (0.2-1.0) D 12/11/17 05:50 AST 26 U/L (15-37) 12/11/17 05:50 ALT 45 U/L (12-78) D 12/11/17 05:50 Alkaline Phosphatase 107 U/L (45-117) D 12/11/17 05:50 Total Protein 7.1 g/dl (6.4-8.2) 12/11/17 05:50 Albumin 3.6 g/dl (3.4-5.0) 12/11/17 05:50 Urine Color Ltyellow 12/10/17 15:20 Urine Appearance Clear 12/10/17 15:20 Urine pH 6.0 (5.0-8.0) 12/10/17 15:20 Ur Specific [place] 1.013 (1.001-1.035) 12/10/17 15:20 Urine Protein Negative (NEGATIVE) 12/10/17 15:20 Urine Glucose (UA) 1+ (NEGATIVE) H 12/10/17 15:20 Urine Ketones Negative (NEGATIVE) 12/10/17 15:20 Urine Blood Negative (NEGATIVE) 12/10/17 15:20 Urine Nitrite Negative (NEGATIVE) 12/10/17 15:20 Urine Bilirubin Negative (<2.0 mg/dL) 12/10/17 15:20 Urine Urobilinogen Negative mg/dL (0.2-1.0) 12/10/17 15:20 Ur Leukocyte Esterase Negative (NEGATIVE) 12/10/17 15:20 Valproic Acid 3.987 ug/ml (50-100) L 12/11/17 05:50 RPR Titer Nonreactive (NONREACTIVE) 12/11/17 05:50 12/12/17 09:37 GLUCOSE IS 148 Assessment: 12/12/17 09:38 WITHDRAWAL SYMPTOM Plan: CONTINUE DETOX,BGM MONITORING
[2017-12-12] MEDS: DIVALPROEX SODIUM 500 MG TABLET E.C. PO SCH ×2 (10:29→22:16)
[2017-12-12] MEDS: ASPIRIN 81 MG CHEWABLE TABLETS PO SCH (10:29)
[2017-12-12] MEDS: METHADONE HCL 5 MG TABLET (FOR DETOX USE ONLY) PO SCH (10:29)
[2017-12-12] MEDS: NIFEdipine E.R 60 MG TABLET (UD) PO SCH (10:29)
[2017-12-12] MEDS: PRENATAL VITAMINS W/ FOLIC ACID TABLET (FP) PO SCH (10:30)
[2017-12-12] MEDS: chlordiazePOXIDE 5 MG CAPSULE PO SCH ×2 (17:39→22:19)
[2017-12-12] MEDS: MELATONIN 5 MG TABLETS PO SCH (22:16)
[2017-12-12] MEDS: THIAMINE HCL 100 MG TABLET (FP) PO SCH (22:16)
[2017-12-12] MEDS: SERTRALINE HCL 50 MG TABLET (FP) PO SCH (22:16)
[2017-12-12] MEDS: traZODone HCL 50 MG TABLET (FP) PO SCH (22:17)
[2017-12-12] MEDS: INSULIN DETEMIR 100 UNITS/ML MDV SQ SCH (22:17)
[2017-12-12] MEDS: QUEtiapine FUMARATE 200 MG TABLET PO SCH (22:20)
[2017-12-13] MEDS: chlordiazePOXIDE 5 MG CAPSULE PO SCH ×2 (06:28→10:18)
[2017-12-13] MEDS: LEVOTHYROXINE NA 25 MCG TABLET (FP) PO SCH (06:34)
[2017-12-13] MEDS: INSULIN SLIDING SCALE (NOVOLOG) 1 VIAL SQ SCH ×2 (07:36→17:52)
[2017-12-13] MEDS: NIFEdipine E.R 60 MG TABLET (UD) PO SCH (10:18)
[2017-12-13] MEDS: METHADONE HCL 5 MG TABLET (FOR DETOX USE ONLY) PO SCH (10:18)
[2017-12-13] MEDS: ASPIRIN 81 MG CHEWABLE TABLETS PO SCH (10:18)
[2017-12-13] MEDS: DIVALPROEX SODIUM 500 MG TABLET E.C. PO SCH ×2 (10:18→22:26)
[2017-12-13] MEDS: PRENATAL VITAMINS W/ FOLIC ACID TABLET (FP) PO SCH (10:18)
--- NOTE | 2017-12-13 10:56 | PN ---
[facility] Progress Note (SOAP) Subjective: [place], sweats, interruped sleep, anxeity, trmeors Objective: 12/13/17 10:55 Vital Signs - 24 hr 12/12/17 12/12/17 12/12/17 15:33 17:06 21:32 Temperature 99.5 F 97.5 F L 98.2 F Pulse Rate 97 H 85 82 Respiratory 20 19 18 Rate Blood Pressure 137/66 114/58 113/58 12/13/17 12/13/17 12/13/17 00:30 03:30 06:00 Temperature 97.9 F Pulse Rate 80 Respiratory 18 18 20 Rate Blood Pressure 125/55 Laboratory Results - last 24 hr 12/12/17 12/12/17 12/13/17 16:29 22:14 06:27 POC Glucometer 132 186 132 labs pending Assessment: 12/13/17 10:56 cont detox - withdrawal sx noted, check labs
[2017-12-13] MEDS ORDERED: INSULIN (NOVOLOG) ASPART 100 UNITS/ML 10ML VIAL ONE (17:50)
[2017-12-13] MEDS: chlordiazePOXIDE HCL 10 MG CAPSULE PO SCH ×2 (17:52→22:34)
[2017-12-13] MEDS: THIAMINE HCL 100 MG TABLET (FP) PO SCH (22:26)
[2017-12-13] MEDS: SERTRALINE HCL 50 MG TABLET (FP) PO SCH (22:26)
[2017-12-13] MEDS: MELATONIN 5 MG TABLETS PO SCH (22:34)
[2017-12-13] MEDS: traZODone HCL 50 MG TABLET (FP) PO SCH (22:34)
[2017-12-13] MEDS: QUEtiapine FUMARATE 200 MG TABLET PO SCH (22:34)
[2017-12-13] MEDS: INSULIN DETEMIR 100 UNITS/ML MDV SQ SCH (22:34)
[2017-12-14] MEDS: chlordiazePOXIDE HCL 10 MG CAPSULE PO SCH ×2 (06:13→11:09)
[2017-12-14] MEDS: LEVOTHYROXINE NA 25 MCG TABLET (FP) PO SCH (06:13)
[2017-12-14] MEDS ORDERED: INSULIN (NOVOLOG) ASPART 100 UNITS/ML 10ML VIAL ONE ×2 (06:50→17:35)
[2017-12-14] MEDS: INSULIN SLIDING SCALE (NOVOLOG) 1 VIAL SQ SCH ×2 (08:13→17:25)
[2017-12-14] MEDS ORDERED: METHADONE HCL 10 MG TABLET (FOR DETOX USE ONLY) PO SCH (10:00)
--- NOTE | 2017-12-14 10:12 | PN ---
[facility] Progress Note (SOAP) Subjective: interrupted sleep, sweats, shakes nightmares, lbp, rt hip pain Objective: 12/14/17 10:08 Vital Signs Temperature 97.7 F 12/14/17 06:00 Pulse Rate 74 12/14/17 06:00 Respiratory Rate 18 12/14/17 06:00 Blood Pressure 120/65 12/14/17 06:00 O2 Sat by Pulse Oximetry (%) Laboratory Tests 12/10/17 12/10/17 12/10/17 11:41 15:20 16:35 WBC RBC Hgb Hct MCV MCH MCHC RDW Plt Count MPV Sodium Potassium Chloride Carbon Dioxide Anion Gap BUN Creatinine Creat Clearance w eGFR POC Glucometer 159 162 Random Glucose Calcium Total Bilirubin AST ALT Alkaline Phosphatase Total Protein Albumin Urine Color Ltyellow Urine Appearance Clear Urine pH 6.0 Ur Specific [place] 1.013 Urine Protein Negative Urine Glucose (UA) 1+ H Urine Ketones Negative Urine Blood Negative Urine Nitrite Negative Urine Bilirubin Negative Urine Urobilinogen Negative Ur Leukocyte Esterase Negative Valproic Acid RPR Titer 12/11/17 12/11/17 12/11/17 05:35 05:50 05:50 WBC 10.3 H RBC 4.58 Hgb 13.5 Hct 40.1 MCV 87.6 MCH 29.5 MCHC 33.7 RDW 14.9 Plt Count 270 MPV 8.2 Sodium 140 Potassium 3.6 Chloride 104 Carbon Dioxide 31 Anion Gap 5 L BUN 11 D Creatinine 0.8 Creat Clearance w eGFR > 60 POC Glucometer 173 Random Glucose 149 H D Calcium 8.3 L Total Bilirubin 0.3 D AST 26 ALT 45 D Alkaline Phosphatase 107 D Total Protein 7.1 Albumin 3.6 Urine Color Urine Appearance Urine pH Ur Specific [place] Urine Protein Urine Glucose (UA) Urine Ketones Urine Blood Urine Nitrite Urine Bilirubin Urine Urobilinogen Ur Leukocyte Esterase Valproic Acid RPR Titer 12/11/17 12/11/17 12/11/17 05:50 05:50 16:45 WBC RBC Hgb Hct MCV MCH MCHC RDW Plt Count MPV Sodium Potassium Chloride Carbon Dioxide Anion Gap BUN Creatinine Creat Clearance w eGFR POC Glucometer 168 Random Glucose Calcium Total Bilirubin AST ALT Alkaline Phosphatase Total Protein Albumin Urine Color Urine Appearance Urine pH Ur Specific [place] Urine Protein Urine Glucose (UA) Urine Ketones Urine Blood Urine Nitrite Urine Bilirubin Urine Urobilinogen Ur Leukocyte Esterase Valproic Acid 3.987 L RPR Titer Nonreactive 12/11/17 12/12/17 12/12/17 22:15 05:32 16:29 WBC RBC Hgb Hct MCV MCH MCHC RDW Plt Count MPV Sodium Potassium Chloride Carbon Dioxide Anion Gap BUN Creatinine Creat Clearance w eGFR POC Glucometer 184 148 132 Random Glucose Calcium Total Bilirubin AST ALT Alkaline Phosphatase Total Protein Albumin Urine Color Urine Appearance Urine pH Ur Specific [place] Urine Protein Urine Glucose (UA) Urine Ketones Urine Blood Urine Nitrite Urine Bilirubin Urine Urobilinogen Ur Leukocyte Esterase Valproic Acid RPR Titer 12/12/17 12/13/17 12/13/17 22:14 06:27 16:36 WBC RBC Hgb Hct MCV MCH MCHC RDW Plt Count MPV Sodium Potassium Chloride Carbon Dioxide Anion Gap BUN Creatinine Creat Clearance w eGFR POC Glucometer 186 132 159 Random Glucose Calcium Total Bilirubin AST ALT Alkaline Phosphatase Total Protein Albumin Urine Color Urine Appearance Urine pH Ur Specific [place] Urine Protein Urine Glucose (UA) Urine Ketones Urine Blood Urine Nitrite Urine Bilirubin Urine Urobilinogen Ur Leukocyte Esterase Valproic Acid RPR Titer 12/13/17 12/14/17 22:24 06:09 WBC RBC Hgb Hct MCV MCH MCHC RDW Plt Count MPV Sodium Potassium Chloride Carbon Dioxide Anion Gap BUN Creatinine Creat Clearance w eGFR POC Glucometer 170 208 Random Glucose Calcium Total Bilirubin AST ALT Alkaline Phosphatase Total Protein Albumin Urine Color Urine Appearance Urine pH Ur Specific [place] Urine Protein Urine Glucose (UA) Urine Ketones Urine Blood Urine Nitrite Urine Bilirubin Urine Urobilinogen Ur Leukocyte Esterase Valproic Acid RPR Titer pt lying in bed aox3 , uses cane for ambulation Assessment: 12/14/17 10:11 withdrawal sx's dm lbp rt hip pain Plan: cont. detox increase fluids lidocaine patch d/c in am
[2017-12-14] MEDS ORDERED: LIDOCAINE 5% TOPICAL PATCH TP ONE (10:35)
[2017-12-14] MEDS: ASPIRIN 81 MG CHEWABLE TABLETS PO SCH (11:08)
[2017-12-14] MEDS: DIVALPROEX SODIUM 500 MG TABLET E.C. PO SCH ×2 (11:09→22:21)
[2017-12-14] MEDS: PRENATAL VITAMINS W/ FOLIC ACID TABLET (FP) PO SCH (11:09)
[2017-12-14] MEDS: NIFEdipine E.R 60 MG TABLET (UD) PO SCH (11:10)
[2017-12-14] MEDS ORDERED: LIDOCAINE PATCH REMOVAL MC SCH ×2 (22:00)
[2017-12-14] MEDS: MELATONIN 5 MG TABLETS PO SCH (22:21)
[2017-12-14] MEDS: QUEtiapine FUMARATE 200 MG TABLET PO SCH (22:21)
[2017-12-14] MEDS: SERTRALINE HCL 50 MG TABLET (FP) PO SCH (22:21)
[2017-12-14] MEDS: traZODone HCL 50 MG TABLET (FP) PO SCH (22:21)
[2017-12-14] MEDS: THIAMINE HCL 100 MG TABLET (FP) PO SCH (22:21)
[2017-12-14] MEDS: INSULIN DETEMIR 100 UNITS/ML MDV SQ SCH (22:22)
[2017-12-15] MEDS ORDERED: METHADONE HCL 5 MG TABLET (FOR DETOX USE ONLY) PO SCH (06:00)
[2017-12-15] MEDS: INSULIN SLIDING SCALE (NOVOLOG) 1 VIAL SQ SCH (06:51)
[2017-12-15] MEDS: LEVOTHYROXINE NA 25 MCG TABLET (FP) PO SCH (06:52)
[2017-12-15 06:54] VITALS: BP 122/69; PULSE 63; TEMP 97.2
[2017-12-15] MEDS ORDERED: LIDOCAINE 5% TOPICAL PATCH TP SCH (10:00)
--- NOTE | 2017-12-15 11:00 | PN ---
S Progress Note (SOAP) Subjective: ALERT,NO COMPLAINT Objective: 12/15/17 10:58 Vital Signs Temperature 97.2 F L 12/15/17 06:53 Pulse Rate 63 12/15/17 06:53 Respiratory Rate 18 12/15/17 06:53 Blood Pressure 122/69 12/15/17 06:53 O2 Sat by Pulse Oximetry (%) Assessment: 12/15/17 10:58 DETOX COMPLETED,NO WITHDRAWAL SYMPTOM Plan: DISCHARGE TODAY,FOLLOW UP WITH AFTER CARE PROGRAM ARRANGEMENT
--- NOTE | 2017-12-15 11:04 | DS ---
[facility] Detox Discharge Summary Admission Date: 12/10/17 Discharge Date: 12/15/17 - History Present History: Alcohol Dependence, Cocaine Dependence, Opioid Dependence Additional Comments: PATIENT DID NOT WANT TO GO TO REHAB,SEEN BY COUNSELOR,FOLLOW UP WITH AFTER CARE PROGRAM ARRANGEMENT Pertinent Past History: HYPERTENSION TYPE 2 DM HYPOTHYROIDISM RIGHT HIP PAIN AMBULATION WITH CANE NICOTINE DEPENDENCE URTICARIA HISTORY - Physical Exam Results Vital Signs: Vital Signs Temperature 97.2 F L 12/15/17 06:53 Pulse Rate 63 12/15/17 06:53 Respiratory Rate 18 12/15/17 06:53 Blood Pressure 122/69 12/15/17 06:53 O2 Sat by Pulse Oximetry (%) Pertinent Admission Physical Exam Findings: WITHDRAWAL SIGNS AND SYMPTOM - Treatment Hospital Course: Detox Protocol Followed, Detoxed Safely, Responded well, Discharged Condition Good Patient has Accepted a Rehab Referral to: DECLINED - Medication Discharge Medications: Ambulatory Orders Insulin (Novolog) [Novolog Flexpen -] 25 units SQ AC 06/22/17 Levothyroxine [Synthroid -] 25 mcg PO DAILY #30 mcg 06/26/17 Aspirin [ASA -] 81 mg PO DAILY 09/04/17 Nifedipine ER [Procardia XL -] 120 mg PO DAILY 09/04/17 Insulin (Levemir) [Levemir Flexpen -] 35 units SQ HS 10/19/17 Sertraline HCl [Zoloft] 100 mg PO DAILY #30 tablet 10/19/17 Divalproex [Depakote -] 500 mg PO BID #60 tablet.ec 12/10/17 Quetiapine Fumarate [Seroquel -] 200 mg PO HS #30 tab 12/10/17 Sertraline HCl [Zoloft -] 100 mg PO HS #30 tablet 12/10/17 traZODone HCL [Desyrel -] 50 mg PO HS #30 tablet 12/10/17 - Diagnosis (1) Opioid dependence with withdrawal Current Visit: Yes Status: Chronic (2) Right hip pain Current Visit: Yes Status: Chronic (3) Alcohol dependence with uncomplicated withdrawal Current Visit: Yes Status: Chronic (4) Cocaine dependence Current Visit: Yes Status: Chronic Qualifiers: Substance use status: uncomplicated Qualified Code(s): F14.20 - Cocaine dependence, uncomplicated (5) Insomnia Current Visit: Yes Status: Deleted Qualifiers: Insomnia type: unspecified Qualified Code(s): G47.00 - Insomnia, unspecified (6) Nicotine dependence Current Visit: No Status: Acute Qualifiers: Nicotine product type: cigarettes Substance use status: uncomplicated Qualified Code(s): F17.210 - Nicotine dependence, cigarettes, uncomplicated (7) Hypertension Current Visit: Yes Status: Chronic Qualifiers: Hypertension type: essential hypertension Qualified Code(s): I10 - Essential (primary) hypertension (8) IDDM (insulin dependent diabetes mellitus) Current Visit: No Status: Chronic (9) Hypercholesteremia Current Visit: No Status: Suspected (10) Schizophrenia Current Visit: No Status: Deleted (11) Schizophrenia Current Visit: No Status: Suspected (12) Seizure disorder Current Visit: No Status: Suspected (13) Hypothyroidism Current Visit: Yes Status: Chronic Qualifiers: Hypothyroidism type: unspecified Qualified Code(s): E03.9 - Hypothyroidism , unspecified (14) Use of cane as ambulatory aid Current Visit: Yes Status: Chronic (15) History of urticaria Current Visit: Yes Status: Acute - AMA Did Patient Leave Against Medical Advice: No
== END 2017-12-15 09:35 | disposition home or self-care (01) | DRG 773 ==
LOC: YASAS 08:42 → Y6N 14:00
PROVIDERS: ADMIT Internal Medicine; ATTEND Internal Medicine
PROC: HZ2ZZZZ Detoxification Services for Substance Abuse Treatment (ICD-10-PCS; principal; 2017-12-10)
DX: F11.23 Opioid dependence with withdrawal (principal); F10.230 Alcohol dependence with withdrawal, uncomplicated; F14.20 Cocaine dependence, uncomplicated; F17.210 Nicotine dependence, cigarettes, uncomplicated; F20.9 Schizophrenia, unspecified; F19.24 Other psychoactive substance dependence with psychoactive substance-induced mood disorder; F41.9 Anxiety disorder, unspecified; F32.9 Major depressive disorder, single episode, unspecified; I10 Essential (primary) hypertension; E11.9 Type 2 diabetes mellitus without complications; E78.5 Hyperlipidemia, unspecified; E03.9 Hypothyroidism, unspecified; M25.551 Pain in right hip; G47.00 Insomnia, unspecified; G40.909 Epilepsy, unspecified, not intractable, without status epilepticus; L97.519 Non-pressure chronic ulcer of other part of right foot with unspecified severity; R26.2 Difficulty in walking, not elsewhere classified; Z99.89 Dependence on other enabling machines and devices; Z79.4 Long term (current) use of insulin; Z91.013 Allergy to seafood; Z88.0 Allergy status to penicillin; Z91.5 Personal history of self-harm
CPT/HCPCS: 36415; 80053; 80164; 81003; 82962; 84443; 85027; 86593; 93005; 93010

== ENCOUNTER 2018-04-24 10:31 | Inpatient (IN) | payer OTHER ==
[2018-04-24 12:10] VITALS: BMI 31.9
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
[2018-04-24] MEDS ORDERED: MAGNESIUM CITRATE 300 ML BOTTLE PO PRN (14:34)
[2018-04-24] MEDS ORDERED: MENTHOL/PHENOL 1 EACH UD MM PRN (14:34)
[2018-04-24] MEDS ORDERED: guaiFENesin/D-METHORPHAN HB 10 ML UNIT-DOSE CUPS PO PRN (14:34)
[2018-04-24] MEDS ORDERED: chlordiazePOXIDE HCL 25 MG CAPSULE PO PRN (14:34)
[2018-04-24] MEDS ORDERED: ACETAMINOPHEN 325 MG TABLET (FP) PO PRN (14:34)
[2018-04-24] MEDS ORDERED: MAG HYDROX/AL HYDROX/SIMETH 30 ML UNIT-DOSE CUP PO PRN (14:34)
[2018-04-24] MEDS ORDERED: LOPERAMIDE HCL 2 MG CAPSULE PO PRN (14:34)
[2018-04-24] MEDS ORDERED: MAGNESIUM HYDROX 2400MG/30ML ORAL SUSPENSION 30 ML CUP PO PRN (14:34)
[2018-04-24] MEDS ORDERED: NICOTINE POLACRILEX 2 MG GUM BUC PRN (14:34)
[2018-04-24] MEDS ORDERED: IBUPROFEN 400 MG TABLET (FP) PO PRN (14:34)
[2018-04-24] MEDS ORDERED: P-EPHED 60MG/TRIPROLIDI 2.5MG TABLET PO PRN (14:34)
[2018-04-24] MEDS ORDERED: COLLOIDAL OATMEAL 1 BAR EACH TP PRN (14:36)
[2018-04-24] MEDS ORDERED: ALBUTEROL SO4 8 GM HFA INHALER IH PRN (14:37)
[2018-04-24] MEDS: NICOTINE 14 MG/24 HOURS TOPICAL PATCH TD SCH (15:57)
[2018-04-24] MEDS: ASPIRIN 81 MG CHEWABLE TABLETS PO SCH (15:57)
[2018-04-24] MEDS: NIFEdipine E.R. 90 MG TABLET (FP) PO SCH (15:57)
[2018-04-24] MEDS: LEVOTHYROXINE NA 25 MCG TABLET (FP) PO SCH (15:57)
[2018-04-24] MEDS ORDERED: INSULIN (NOVOLOG) ASPART 100 UNITS/ML 10ML VIAL ONE ×2 (16:31→20:36)
[2018-04-24] MEDS: INSULIN SLIDING SCALE (NOVOLOG) 1 VIAL SQ SCH (17:05)
[2018-04-24] MEDS: chlordiazePOXIDE HCL 25 MG CAPSULE PO SCH ×2 (17:05→22:19)
[2018-04-24 18:13] LABS: URINE APPEARANCE SLCLOUDY; URINE BILIRUBIN NEGATIVE (<2.0 mg/dL); URINE COLOR LTYELLOW; URINE GLUCOSE (UA) 3+ (NEGATIVE); URINE KETONE NEGATIVE (NEGATIVE); URINE NITRITE NEGATIVE (NEGATIVE); URINE PROTEIN NEGATIVE (NEGATIVE); URINE UROBILINOGEN NEGATIVE mg/dL (0.2-1.0)
[2018-04-24 18:20] LABS: URINE LEUK ESTERASE 3+ (NEGATIVE)
[2018-04-24 18:35] LABS: EPI CELLS RARE /HPF (FEW); URINE BACTERIA RARE /hpf (NONE SEEN); URINE MUCUS RARE; YEAST MANY
[2018-04-24] MEDS ORDERED: MELATONIN 5 MG TABLETS PO PRN (22:00)
[2018-04-24] MEDS: THIAMINE HCL 100 MG TABLET (FP) PO SCH (22:19)
[2018-04-24] MEDS: BUDESONIDE/FORMETEROL FUMARATE 80/4.5 mcg INHALER IH SCH (22:19)
[2018-04-24] MEDS: DIVALPROEX SODIUM 500 MG TABLET E.C. PO SCH (22:19)
[2018-04-24] MEDS: INSULIN (LEVEMIR) 100 UNITS/ML UNITS SQ SCH (22:20)
[2018-04-24] MEDS: NYSTATIN/TRIAMCINOLONE TOPICAL CREAM 15 GM TUBE TP SCH (22:31)
[2018-04-25] MEDS: chlordiazePOXIDE HCL 25 MG CAPSULE PO SCH ×4 (05:07→22:24)
[2018-04-25] MEDS: LEVOTHYROXINE NA 25 MCG TABLET (FP) PO SCH (06:37)
[2018-04-25] MEDS: INSULIN SLIDING SCALE (NOVOLOG) 1 VIAL SQ SCH ×3 (08:40→17:49)
[2018-04-25] MEDS: DIVALPROEX SODIUM 500 MG TABLET E.C. PO SCH ×2 (10:27→22:24)
[2018-04-25] MEDS: NIFEdipine E.R. 90 MG TABLET (FP) PO SCH (10:27)
[2018-04-25] MEDS: ASPIRIN 81 MG CHEWABLE TABLETS PO SCH (10:27)
[2018-04-25] MEDS: BUDESONIDE/FORMETEROL FUMARATE 80/4.5 mcg INHALER IH SCH ×2 (10:27→22:48)
[2018-04-25] MEDS: NICOTINE 14 MG/24 HOURS TOPICAL PATCH TD SCH (10:27)
[2018-04-25] MEDS: PRENATAL VITAMINS W/ FOLIC ACID TABLET (FP) PO SCH (10:27)
[2018-04-25] MEDS: NYSTATIN/TRIAMCINOLONE TOPICAL CREAM 15 GM TUBE TP SCH ×2 (10:28→22:24)
[2018-04-25 10:37] LABS: HEMATOCRIT 43.5 % (35.4-49); HEMOGLOBIN 15.1 GM/dL (11.7-16.9); MCH 29.5 pg (25.7-33.7); MCHC 34.7 g/dl (32.0-35.9); MEAN PLT VOLUME 8.8 fl (7.5-11.1); PLATELET COUNT 237 K/MM3 (134-434); RBC 5.11 M/mm3 (4.00-5.60); RDW 14.3 % (11.9-15.9)
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
[2018-04-25 11:10] LABS: ALBUMIN 3.5 g/dl (3.4-5.0); ANION GAP 11 (8-16); BLOOD UREA NITROGEN 7 mg/dL (7-18); CALCIUM 8.4 mg/dL (8.5-10.1); CHLORIDE 101 mmol/L (98-107); CO2 28 mmol/L (21-32); SODIUM 140 mmol/L (136-145)
[2018-04-25] MEDS ORDERED: INSULIN (NOVOLOG) ASPART 100 UNITS/ML 10ML VIAL ONE ×2 (11:25→17:22)
--- NOTE | 2018-04-25 11:25 | PN ---
S CIWA - CIWA Score Nausea/Vomitin-No Nausea/No Vomiting Muscle Tremors: 4-Moderate,w/Arms Extend Anxiety: 4-Mod. Anxious/Guarded Agitation: 4-Moderately Restless Paroxysmal Sweats: 1-Minimal Palms Moist Orientation: 0-Oriented Tacttile Disturbances: 0-None Auditory Disturbances: 0-None Visual Disturbances: 0-None Headache: 0-None Present CIWA-Ar Total Score: 13 BHS Progress Note (SOAP) Subjective: ANXIETY,SWEATS,TREMORS,INTERMITTENT SLEEP Objective: 04/25/18 11:21 Vital Signs 04/25/18 04/25/18 04/25/18 03:30 06:05 06:30 Temperature 96.6 F L Pulse Rate 76 Respiratory 18 18 18 Rate Blood Pressure 114/67 04/25/18 09:18 Temperature 97.7 F Pulse Rate 94 H Respiratory 18 Rate Blood Pressure 113/64 Laboratory Tests 04/24/18 04/24/18 04/24/18 13:05 13:15 15:00 WBC RBC Hgb Hct MCV MCH MCHC RDW Plt Count MPV POC Glucometer 328 Urine Color Ltyellow Urine Appearance Slcloudy Urine pH 6.0 Ur Specific [place] 1.037 H Urine Protein Negative Urine Glucose (UA) 3+ H Urine Ketones Negative Urine Blood 2+ H Urine Nitrite Negative Urine Bilirubin Negative Urine Urobilinogen Negative Ur Leukocyte Esterase 3+ H Urine WBC (Auto) 63 Urine RBC (Auto) 75 Ur Epithelial Cells Rare Urine Bacteria Rare Urine Mucus Rare Urine Yeast Many HIV 1&2 Antibody Screen Negative HIV P24 Antigen Negative 04/24/18 04/24/18 04/25/18 16:27 20:18 05:07 WBC RBC Hgb Hct MCV MCH MCHC RDW Plt Count MPV POC Glucometer 243 269 259 Urine Color Urine Appearance Urine pH Ur Specific [place] Urine Protein Urine Glucose (UA) Urine Ketones Urine Blood Urine Nitrite Urine Bilirubin Urine Urobilinogen Ur Leukocyte Esterase Urine WBC (Auto) Urine RBC (Auto) Ur Epithelial Cells Urine Bacteria Urine Mucus Urine Yeast HIV 1&2 Antibody Screen HIV P24 Antigen 04/25/18 06:00 WBC 10.0 RBC 5.11 Hgb 15.1 Hct 43.5 MCV 85.0 MCH 29.5 MCHC 34.7 RDW 14.3 Plt Count 237 MPV 8.8 POC Glucometer Urine Color Urine Appearance Urine pH Ur Specific [place] Urine Protein Urine Glucose (UA) Urine Ketones Urine Blood Urine Nitrite Urine Bilirubin Urine Urobilinogen Ur Leukocyte Esterase Urine WBC (Auto) Urine RBC (Auto) Ur Epithelial Cells Urine Bacteria Urine Mucus Urine Yeast HIV 1&2 Antibody Screen HIV P24 Antigen ABNORMAL UA Assessment: 04/25/18 11:21 WITHDRAWAL SX R/O UTI Plan: CONTINUE DETOX REPEAT UA;UC TODAY
[2018-04-25 11:35] LABS: ALK PHOS 126 U/L (45-117); BILIRUBIN,TOTAL 0.3 mg/dL (0.2-1.0); CREATININE 0.9 mg/dL (0.7-1.3); TOT PROT 7.6 g/dl (6.4-8.2)
[2018-04-25 12:02] LABS: GLUCOSE,RANDOM 332 mg/dL (74-106); SGOT/AST 16 U/L (15-37)
[2018-04-25] MEDS: SERTRALINE HCL 50 MG TABLET (FP) PO SCH (12:39)
[2018-04-25] MEDS: QUEtiapine FUMARATE 50 MG TABLET PO SCH (12:40)
--- NOTE | 2018-04-25 16:49 | EKG ---
Test Reason : Blood Pressure : / mmHG Vent. Rate : 079 BPM Atrial Rate : 079 BPM P-R Int : 136 ms QRS Dur : 086 ms QT Int : 372 ms P-R-T Axes : 054 -35 026 degrees QTc Int : 426 ms NORMAL SINUS RHYTHM POSSIBLE LEFT ATRIAL ENLARGEMENT LEFT AXIS DEVIATION ABNORMAL ECG WHEN COMPARED WITH ECG OF 12-MAR-2018 06:38, NO SIGNIFICANT CHANGE WAS FOUND Confirmed by NELA BAINS MD ([id number]) on 04/25/2018 3:51:50 PM Referred By: Confirmed By:NELA BAINS MD
[2018-04-25 19:32] LABS: URINE APPEARANCE CLEAR; URINE BILIRUBIN NEGATIVE (<2.0 mg/dL); URINE COLOR LTYELLOW; URINE GLUCOSE (UA) 3+ (NEGATIVE); URINE KETONE NEGATIVE (NEGATIVE); URINE NITRITE NEGATIVE (NEGATIVE); URINE PROTEIN NEGATIVE (NEGATIVE); URINE UROBILINOGEN NEGATIVE mg/dL (0.2-1.0)
[2018-04-25 19:34] LABS: URINE LEUK ESTERASE 1+ (NEGATIVE)
[2018-04-25 19:41] LABS: EPI CELLS RARE /HPF (FEW)
[2018-04-25 19:42] LABS: URINE BACTERIA RARE /hpf (NONE SEEN); URINE MUCUS RARE
[2018-04-25] MEDS: THIAMINE HCL 100 MG TABLET (FP) PO SCH (22:24)
[2018-04-25] MEDS: QUEtiapine FUMARATE 200 MG TABLET PO SCH (22:24)
[2018-04-25] MEDS: INSULIN (LEVEMIR) 100 UNITS/ML UNITS SQ SCH (22:24)
[2018-04-26] MEDS: chlordiazePOXIDE HCL 25 MG CAPSULE PO SCH ×2 (05:45→10:50)
[2018-04-26] MEDS ORDERED: INSULIN (NOVOLOG) ASPART 100 UNITS/ML 10ML VIAL ONE ×3 (05:47→17:00)
[2018-04-26] MEDS: LEVOTHYROXINE NA 25 MCG TABLET (FP) PO SCH (06:10)
[2018-04-26] MEDS: INSULIN SLIDING SCALE (NOVOLOG) 1 VIAL SQ SCH ×3 (06:10→17:39)
[2018-04-26] MEDS ORDERED: CLINDAMYCIN HCL 300 MG CAPSULE PO ONE (10:14)
[2018-04-26] MEDS: NICOTINE 14 MG/24 HOURS TOPICAL PATCH TD SCH (10:49)
[2018-04-26] MEDS: NYSTATIN/TRIAMCINOLONE TOPICAL CREAM 15 GM TUBE TP SCH (10:49)
[2018-04-26] MEDS: NIFEdipine E.R. 90 MG TABLET (FP) PO SCH (10:49)
[2018-04-26] MEDS: DIVALPROEX SODIUM 500 MG TABLET E.C. PO SCH ×2 (10:49→22:13)
[2018-04-26] MEDS: QUEtiapine FUMARATE 50 MG TABLET PO SCH (10:49)
[2018-04-26] MEDS: SERTRALINE HCL 50 MG TABLET (FP) PO SCH (10:49)
[2018-04-26] MEDS: ASPIRIN 81 MG CHEWABLE TABLETS PO SCH (10:49)
[2018-04-26] MEDS: PRENATAL VITAMINS W/ FOLIC ACID TABLET (FP) PO SCH (10:49)
[2018-04-26] MEDS: BUDESONIDE/FORMETEROL FUMARATE 80/4.5 mcg INHALER IH SCH ×2 (10:53→22:13)
--- NOTE | 2018-04-26 11:28 | PN ---
S CIWA - CIWA Score Nausea/Vomitin-No Nausea/No Vomiting Muscle Tremors: 4-Moderate,w/Arms Extend Anxiety: 4-Mod. Anxious/Guarded Agitation: 4-Moderately Restless Paroxysmal Sweats: 1-Minimal Palms Moist Orientation: 0-Oriented Tacttile Disturbances: 0-None Auditory Disturbances: 0-None Visual Disturbances: 0-None Headache: 0-None Present CIWA-Ar Total Score: 13 BHS Progress Note (SOAP) Subjective: PT C/O ANXIETY,SWEATS,SLIGHT TREMORS, STOMACH CRAMPS. Objective: 04/26/18 11:27 Vital Signs 04/26/18 04/26/18 04/26/18 03:30 06:02 09:32 Temperature 96.8 F L 97.3 F L Pulse Rate 66 83 Respiratory 18 20 18 Rate Blood Pressure 122/75 120/68 Laboratory Tests 04/24/18 04/24/18 04/24/18 13:05 13:15 15:00 WBC RBC Hgb Hct MCV MCH MCHC RDW Plt Count MPV Sodium Potassium Chloride Carbon Dioxide Anion Gap BUN Creatinine Creat Clearance w eGFR POC Glucometer 328 Random Glucose Calcium Total Bilirubin AST ALT Alkaline Phosphatase Total Protein Albumin Urine Color Ltyellow Urine Appearance Slcloudy Urine pH 6.0 Ur Specific [place] 1.037 H Urine Protein Negative Urine Glucose (UA) 3+ H Urine Ketones Negative Urine Blood 2+ H Urine Nitrite Negative Urine Bilirubin Negative Urine Urobilinogen Negative Ur Leukocyte Esterase 3+ H Urine WBC (Auto) 63 Urine RBC (Auto) 75 Ur Epithelial Cells Rare Urine Bacteria Rare Urine Mucus Rare Urine Yeast Many Valproic Acid HIV 1&2 Antibody Screen Negative HIV P24 Antigen Negative 04/24/18 04/24/18 04/25/18 16:27 20:18 05:07 WBC RBC Hgb Hct MCV MCH MCHC RDW Plt Count MPV Sodium Potassium Chloride Carbon Dioxide Anion Gap BUN Creatinine Creat Clearance w eGFR POC Glucometer [phone] Random Glucose Calcium Total Bilirubin AST ALT Alkaline Phosphatase Total Protein Albumin Urine Color Urine Appearance Urine pH Ur Specific [place] Urine Protein Urine Glucose (UA) Urine Ketones Urine Blood Urine Nitrite Urine Bilirubin Urine Urobilinogen Ur Leukocyte Esterase Urine WBC (Auto) Urine RBC (Auto) Ur Epithelial Cells Urine Bacteria Urine Mucus Urine Yeast Valproic Acid HIV 1&2 Antibody Screen HIV P24 Antigen 04/25/18 04/25/18 04/25/18 06:00 06:00 06:00 WBC 10.0 RBC 5.11 Hgb 15.1 Hct 43.5 MCV 85.0 MCH 29.5 MCHC 34.7 RDW 14.3 Plt Count 237 MPV 8.8 Sodium 140 Potassium 4.0 Chloride 101 Carbon Dioxide 28 Anion Gap 11 BUN 7 Creatinine 0.9 Creat Clearance w eGFR > 60 POC Glucometer Random Glucose 332 H* Calcium 8.4 L Total Bilirubin 0.3 AST 16 ALT TNP Alkaline Phosphatase 126 H Total Protein 7.6 Albumin 3.5 Urine Color Urine Appearance Urine pH Ur Specific [place] Urine Protein Urine Glucose (UA) Urine Ketones Urine Blood Urine Nitrite Urine Bilirubin Urine Urobilinogen Ur Leukocyte Esterase Urine WBC (Auto) Urine RBC (Auto) Ur Epithelial Cells Urine Bacteria Urine Mucus Urine Yeast Valproic Acid < 3.0 L HIV 1&2 Antibody Screen HIV P24 Antigen 04/25/18 04/25/18 04/25/18 11:19 15:43 16:56 WBC RBC Hgb Hct MCV MCH MCHC RDW Plt Count MPV Sodium Potassium Chloride Carbon Dioxide Anion Gap BUN Creatinine Creat Clearance w eGFR POC Glucometer 328 331 Random Glucose Calcium Total Bilirubin AST ALT Alkaline Phosphatase Total Protein Albumin Urine Color Ltyellow Urine Appearance Clear Urine pH 7.0 Ur Specific [place] 1.023 Urine Protein Negative Urine Glucose (UA) 3+ H Urine Ketones Negative Urine Blood 1+ H Urine Nitrite Negative Urine Bilirubin Negative Urine Urobilinogen Negative Ur Leukocyte Esterase 1+ H D Urine WBC (Auto) 1 Urine RBC (Auto) 2 Ur Epithelial Cells Rare Urine Bacteria Rare Urine Mucus Rare Urine Yeast Valproic Acid HIV 1&2 Antibody Screen HIV P24 Antigen 04/25/18 04/26/18 21:23 05:44 WBC RBC Hgb Hct MCV MCH MCHC RDW Plt Count MPV Sodium Potassium Chloride Carbon Dioxide Anion Gap BUN Creatinine Creat Clearance w eGFR POC Glucometer 397 252 Random Glucose Calcium Total Bilirubin AST ALT Alkaline Phosphatase Total Protein Albumin Urine Color Urine Appearance Urine pH Ur Specific [place] Urine Protein Urine Glucose (UA) Urine Ketones Urine Blood Urine Nitrite Urine Bilirubin Urine Urobilinogen Ur Leukocyte Esterase Urine WBC (Auto) Urine RBC (Auto) Ur Epithelial Cells Urine Bacteria Urine Mucus Urine Yeast Valproic Acid HIV 1&2 Antibody Screen HIV P24 Antigen Assessment: 04/26/18 11:27 WITHDRAWAL SX Plan: CONTINUE DETOX
[2018-04-26] MEDS: CLINDAMYCIN HCL 150 MG CAPSULE (FP) PO SCH ×3 (11:45→23:17)
[2018-04-26] MEDS: chlordiazePOXIDE 5 MG CAPSULE PO SCH ×2 (17:38→22:13)
[2018-04-26] MEDS ORDERED: NYSTATIN/TRIAMCINOLONE TOPICAL OINTMENT 15 GM TUBE TP SCH (22:00)
[2018-04-26] MEDS: THIAMINE HCL 100 MG TABLET (FP) PO SCH (22:13)
[2018-04-26] MEDS: QUEtiapine FUMARATE 200 MG TABLET PO SCH (22:13)
[2018-04-26] MEDS: INSULIN (LEVEMIR) 100 UNITS/ML UNITS SQ SCH (22:13)
[2018-04-26] MEDS: NYSTATIN/TRIAMCINOLONE TOPICAL OINTMENT 15 GM TUBE TP SCH (22:14)
[2018-04-27] MEDS: LEVOTHYROXINE NA 25 MCG TABLET (FP) PO SCH (06:12)
[2018-04-27] MEDS: CLINDAMYCIN HCL 150 MG CAPSULE (FP) PO SCH ×4 (06:12→23:08)
[2018-04-27] MEDS: chlordiazePOXIDE 5 MG CAPSULE PO SCH ×2 (06:12→10:19)
[2018-04-27] MEDS ORDERED: INSULIN (NOVOLOG) ASPART 100 UNITS/ML 10ML VIAL ONE ×3 (06:17→17:13)
[2018-04-27] MEDS: INSULIN SLIDING SCALE (NOVOLOG) 1 VIAL SQ SCH ×3 (06:17→16:50)
[2018-04-27] MEDS: SERTRALINE HCL 50 MG TABLET (FP) PO SCH (10:19)
[2018-04-27] MEDS: QUEtiapine FUMARATE 50 MG TABLET PO SCH (10:19)
[2018-04-27] MEDS: NIFEdipine E.R. 90 MG TABLET (FP) PO SCH (10:19)
[2018-04-27] MEDS: DIVALPROEX SODIUM 500 MG TABLET E.C. PO SCH ×2 (10:19→22:18)
[2018-04-27] MEDS: PRENATAL VITAMINS W/ FOLIC ACID TABLET (FP) PO SCH (10:19)
[2018-04-27] MEDS: NYSTATIN/TRIAMCINOLONE TOPICAL OINTMENT 15 GM TUBE TP SCH ×2 (10:20→22:16)
[2018-04-27] MEDS: BUDESONIDE/FORMETEROL FUMARATE 80/4.5 mcg INHALER IH SCH ×2 (10:20→22:16)
[2018-04-27] MEDS: NICOTINE 14 MG/24 HOURS TOPICAL PATCH TD SCH (10:20)
[2018-04-27] MEDS: ASPIRIN 81 MG CHEWABLE TABLETS PO SCH (10:23)
--- NOTE | 2018-04-27 11:56 | PN ---
BHS Progress Note (SOAP) Subjective: DECREASED IRRITABILITY, TREMOR. C/O FATIGUE. Objective: 04/27/18 11:55 Vital Signs 04/27/18 04/27/18 06:13 09:26 Temperature 97.1 F L 96.8 F L Pulse Rate 65 64 Respiratory 18 18 Rate Blood Pressure 119/74 123/74 Laboratory Tests 04/24/18 04/24/18 04/24/18 13:05 13:15 15:00 WBC RBC Hgb Hct MCV MCH MCHC RDW Plt Count MPV Sodium Potassium Chloride Carbon Dioxide Anion Gap BUN Creatinine Creat Clearance w eGFR POC Glucometer 328 Random Glucose Calcium Total Bilirubin AST ALT Alkaline Phosphatase Total Protein Albumin Urine Color Ltyellow Urine Appearance Slcloudy Urine pH 6.0 Ur Specific [place] 1.037 H Urine Protein Negative Urine Glucose (UA) 3+ H Urine Ketones Negative Urine Blood 2+ H Urine Nitrite Negative Urine Bilirubin Negative Urine Urobilinogen Negative Ur Leukocyte Esterase 3+ H Urine WBC (Auto) 63 Urine RBC (Auto) 75 Ur Epithelial Cells Rare Urine Bacteria Rare Urine Mucus Rare Urine Yeast Many Valproic Acid RPR Titer HIV 1&2 Antibody Screen Negative HIV P24 Antigen Negative 04/24/18 04/24/18 04/25/18 16:27 20:18 05:07 WBC RBC Hgb Hct MCV MCH MCHC RDW Plt Count MPV Sodium Potassium Chloride Carbon Dioxide Anion Gap BUN Creatinine Creat Clearance w eGFR POC Glucometer 243 269 259 Random Glucose Calcium Total Bilirubin AST ALT Alkaline Phosphatase Total Protein Albumin Urine Color Urine Appearance Urine pH Ur Specific [place] Urine Protein Urine Glucose (UA) Urine Ketones Urine Blood Urine Nitrite Urine Bilirubin Urine Urobilinogen Ur Leukocyte Esterase Urine WBC (Auto) Urine RBC (Auto) Ur Epithelial Cells Urine Bacteria Urine Mucus Urine Yeast Valproic Acid RPR Titer HIV 1&2 Antibody Screen HIV P24 Antigen 04/25/18 04/25/18 04/25/18 06:00 06:00 06:00 WBC 10.0 RBC 5.11 Hgb 15.1 Hct 43.5 MCV 85.0 MCH 29.5 MCHC 34.7 RDW 14.3 Plt Count 237 MPV 8.8 Sodium 140 Potassium 4.0 Chloride 101 Carbon Dioxide 28 Anion Gap 11 BUN 7 Creatinine 0.9 Creat Clearance w eGFR > 60 POC Glucometer Random Glucose 332 H* Calcium 8.4 L Total Bilirubin 0.3 AST 16 ALT TNP Alkaline Phosphatase 126 H Total Protein 7.6 Albumin 3.5 Urine Color Urine Appearance Urine pH Ur Specific [place] Urine Protein Urine Glucose (UA) Urine Ketones Urine Blood Urine Nitrite Urine Bilirubin Urine Urobilinogen Ur Leukocyte Esterase Urine WBC (Auto) Urine RBC (Auto) Ur Epithelial Cells Urine Bacteria Urine Mucus Urine Yeast Valproic Acid RPR Titer Nonreactive HIV 1&2 Antibody Screen HIV P24 Antigen 04/25/18 04/25/18 04/25/18 06:00 11:19 15:43 WBC RBC Hgb Hct MCV MCH MCHC RDW Plt Count MPV Sodium Potassium Chloride Carbon Dioxide Anion Gap BUN Creatinine Creat Clearance w eGFR POC Glucometer 328 Random Glucose Calcium Total Bilirubin AST ALT Alkaline Phosphatase Total Protein Albumin Urine Color Ltyellow Urine Appearance Clear Urine pH 7.0 Ur Specific [place] 1.023 Urine Protein Negative Urine Glucose (UA) 3+ H Urine Ketones Negative Urine Blood 1+ H Urine Nitrite Negative Urine Bilirubin Negative Urine Urobilinogen Negative Ur Leukocyte Esterase 1+ H D Urine WBC (Auto) 1 Urine RBC (Auto) 2 Ur Epithelial Cells Rare Urine Bacteria Rare Urine Mucus Rare Urine Yeast Valproic Acid < 3.0 L RPR Titer HIV 1&2 Antibody Screen HIV P24 Antigen 04/25/18 04/25/18 04/26/18 16:56 21:23 05:44 WBC RBC Hgb Hct MCV MCH MCHC RDW Plt Count MPV Sodium Potassium Chloride Carbon Dioxide Anion Gap BUN Creatinine Creat Clearance w eGFR POC Glucometer 331 397 252 Random Glucose Calcium Total Bilirubin AST ALT Alkaline Phosphatase Total Protein Albumin Urine Color Urine Appearance Urine pH Ur Specific [place] Urine Protein Urine Glucose (UA) Urine Ketones Urine Blood Urine Nitrite Urine Bilirubin Urine Urobilinogen Ur Leukocyte Esterase Urine WBC (Auto) Urine RBC (Auto) Ur Epithelial Cells Urine Bacteria Urine Mucus Urine Yeast Valproic Acid RPR Titer HIV 1&2 Antibody Screen HIV P24 Antigen 04/26/18 04/26/18 04/27/18 16:20 20:48 06:11 WBC RBC Hgb Hct MCV MCH MCHC RDW Plt Count MPV Sodium Potassium Chloride Carbon Dioxide Anion Gap BUN Creatinine Creat Clearance w eGFR POC Glucometer 273 284 286 Random Glucose Calcium Total Bilirubin AST ALT Alkaline Phosphatase Total Protein Albumin Urine Color Urine Appearance Urine pH Ur Specific [place] Urine Protein Urine Glucose (UA) Urine Ketones Urine Blood Urine Nitrite Urine Bilirubin Urine Urobilinogen Ur Leukocyte Esterase Urine WBC (Auto) Urine RBC (Auto) Ur Epithelial Cells Urine Bacteria Urine Mucus Urine Yeast Valproic Acid RPR Titer HIV 1&2 Antibody Screen HIV P24 Antigen 04/27/18 11:10 WBC RBC Hgb Hct MCV MCH MCHC RDW Plt Count MPV Sodium Potassium Chloride Carbon Dioxide Anion Gap BUN Creatinine Creat Clearance w eGFR POC Glucometer 368 Random Glucose Calcium Total Bilirubin AST ALT Alkaline Phosphatase Total Protein Albumin Urine Color Urine Appearance Urine pH Ur Specific [place] Urine Protein Urine Glucose (UA) Urine Ketones Urine Blood Urine Nitrite Urine Bilirubin Urine Urobilinogen Ur Leukocyte Esterase Urine WBC (Auto) Urine RBC (Auto) Ur Epithelial Cells Urine Bacteria Urine Mucus Urine Yeast Valproic Acid RPR Titer HIV 1&2 Antibody Screen HIV P24 Antigen UC RESULT PENDING Assessment: 04/27/18 11:55 WITHDRAWAL SX Plan: CONTINUE DETOX
[2018-04-27] MEDS: chlordiazePOXIDE HCL 10 MG CAPSULE PO SCH ×2 (18:24→22:17)
[2018-04-27] MEDS: INSULIN (LEVEMIR) 100 UNITS/ML UNITS SQ SCH (22:13)
[2018-04-27] MEDS: THIAMINE HCL 100 MG TABLET (FP) PO SCH (22:18)
[2018-04-27] MEDS: QUEtiapine FUMARATE 200 MG TABLET PO SCH (22:18)
[2018-04-28] MEDS: chlordiazePOXIDE HCL 10 MG CAPSULE PO SCH ×2 (05:33→10:23)
[2018-04-28] MEDS: CLINDAMYCIN HCL 150 MG CAPSULE (FP) PO SCH (05:33)
[2018-04-28] MEDS ORDERED: INSULIN (NOVOLOG) ASPART 100 UNITS/ML 10ML VIAL ONE (07:36)
[2018-04-28] MEDS: INSULIN SLIDING SCALE (NOVOLOG) 1 VIAL SQ SCH ×2 (07:41→11:11)
[2018-04-28] MEDS: LEVOTHYROXINE NA 25 MCG TABLET (FP) PO SCH (07:41)
[2018-04-28 09:14] VITALS: BP 110/63; PULSE 77; TEMP 96.1
[2018-04-28] MEDS: SERTRALINE HCL 50 MG TABLET (FP) PO SCH (10:20)
[2018-04-28] MEDS: PRENATAL VITAMINS W/ FOLIC ACID TABLET (FP) PO SCH (10:20)
[2018-04-28] MEDS: NIFEdipine E.R. 90 MG TABLET (FP) PO SCH (10:20)
[2018-04-28] MEDS: QUEtiapine FUMARATE 50 MG TABLET PO SCH (10:20)
[2018-04-28] MEDS: BUDESONIDE/FORMETEROL FUMARATE 80/4.5 mcg INHALER IH SCH (10:20)
[2018-04-28] MEDS: NYSTATIN/TRIAMCINOLONE TOPICAL OINTMENT 15 GM TUBE TP SCH (10:20)
[2018-04-28] MEDS: DIVALPROEX SODIUM 500 MG TABLET E.C. PO SCH (10:20)
[2018-04-28] MEDS: ASPIRIN 81 MG CHEWABLE TABLETS PO SCH (10:20)
[2018-04-28] MEDS: NICOTINE 14 MG/24 HOURS TOPICAL PATCH TD SCH (10:22)
--- NOTE | 2018-04-28 12:40 | DS ---
[facility] Detox Discharge Summary Admission Date: 04/24/18 Discharge Date: 04/28/18 - History Present History: Alcohol Dependence, Cocaine Dependence Pertinent Past History: Asthma Hypothyroidism HTN DMT2 HLD Seizure disorder - Physical Exam Results Vital Signs: Vital Signs Temperature 96.1 F L 04/28/18 09:13 Pulse Rate 77 04/28/18 09:13 Respiratory Rate 18 04/28/18 09:13 Blood Pressure 110/63 04/28/18 09:13 O2 Sat by Pulse Oximetry (%) Pertinent Admission Physical Exam Findings: Withdrawal symptoms Laboratory Tests 04/24/18 04/24/18 04/24/18 13:05 13:15 15:00 WBC RBC Hgb Hct MCV MCH MCHC RDW Plt Count MPV Sodium Potassium Chloride Carbon Dioxide Anion Gap BUN Creatinine Creat Clearance w eGFR POC Glucometer 328 Random Glucose Calcium Total Bilirubin AST ALT Alkaline Phosphatase Total Protein Albumin Urine Color Ltyellow Urine Appearance Slcloudy Urine pH 6.0 Ur Specific [place] 1.037 H Urine Protein Negative Urine Glucose (UA) 3+ H Urine Ketones Negative Urine Blood 2+ H Urine Nitrite Negative Urine Bilirubin Negative Urine Urobilinogen Negative Ur Leukocyte Esterase 3+ H Urine WBC (Auto) 63 Urine RBC (Auto) 75 Ur Epithelial Cells Rare Urine Bacteria Rare Urine Mucus Rare Urine Yeast Many Valproic Acid RPR Titer HIV 1&2 Antibody Screen Negative HIV P24 Antigen Negative 04/24/18 04/24/18 04/25/18 16:27 20:18 05:07 WBC RBC Hgb Hct MCV MCH MCHC RDW Plt Count MPV Sodium Potassium Chloride Carbon Dioxide Anion Gap BUN Creatinine Creat Clearance w eGFR POC Glucometer 243 269 259 Random Glucose Calcium Total Bilirubin AST ALT Alkaline Phosphatase Total Protein Albumin Urine Color Urine Appearance Urine pH Ur Specific [place] Urine Protein Urine Glucose (UA) Urine Ketones Urine Blood Urine Nitrite Urine Bilirubin Urine Urobilinogen Ur Leukocyte Esterase Urine WBC (Auto) Urine RBC (Auto) Ur Epithelial Cells Urine Bacteria Urine Mucus Urine Yeast Valproic Acid RPR Titer HIV 1&2 Antibody Screen HIV P24 Antigen 04/25/18 04/25/18 04/25/18 06:00 06:00 06:00 WBC 10.0 RBC 5.11 Hgb 15.1 Hct 43.5 MCV 85.0 MCH 29.5 MCHC 34.7 RDW 14.3 Plt Count 237 MPV 8.8 Sodium 140 Potassium 4.0 Chloride 101 Carbon Dioxide 28 Anion Gap 11 BUN 7 Creatinine 0.9 Creat Clearance w eGFR > 60 POC Glucometer Random Glucose 332 H* Calcium 8.4 L Total Bilirubin 0.3 AST 16 ALT TNP Alkaline Phosphatase 126 H Total Protein 7.6 Albumin 3.5 Urine Color Urine Appearance Urine pH Ur Specific [place] Urine Protein Urine Glucose (UA) Urine Ketones Urine Blood Urine Nitrite Urine Bilirubin Urine Urobilinogen Ur Leukocyte Esterase Urine WBC (Auto) Urine RBC (Auto) Ur Epithelial Cells Urine Bacteria Urine Mucus Urine Yeast Valproic Acid RPR Titer Nonreactive HIV 1&2 Antibody Screen HIV P24 Antigen 04/25/18 04/25/18 04/25/18 06:00 11:19 15:43 WBC RBC Hgb Hct MCV MCH MCHC RDW Plt Count MPV Sodium Potassium Chloride Carbon Dioxide Anion Gap BUN Creatinine Creat Clearance w eGFR POC Glucometer 328 Random Glucose Calcium Total Bilirubin AST ALT Alkaline Phosphatase Total Protein Albumin Urine Color Ltyellow Urine Appearance Clear Urine pH 7.0 Ur Specific [place] 1.023 Urine Protein Negative Urine Glucose (UA) 3+ H Urine Ketones Negative Urine Blood 1+ H Urine Nitrite Negative Urine Bilirubin Negative Urine Urobilinogen Negative Ur Leukocyte Esterase 1+ H D Urine WBC (Auto) 1 Urine RBC (Auto) 2 Ur Epithelial Cells Rare Urine Bacteria Rare Urine Mucus Rare Urine Yeast Valproic Acid < 3.0 L RPR Titer HIV 1&2 Antibody Screen HIV P24 Antigen 04/25/18 04/25/18 04/26/18 16:56 21:23 05:44 WBC RBC Hgb Hct MCV MCH MCHC RDW Plt Count MPV Sodium Potassium Chloride Carbon Dioxide Anion Gap BUN Creatinine Creat Clearance w eGFR POC Glucometer 331 397 252 Random Glucose Calcium Total Bilirubin AST ALT Alkaline Phosphatase Total Protein Albumin Urine Color Urine Appearance Urine pH Ur Specific [place] Urine Protein Urine Glucose (UA) Urine Ketones Urine Blood Urine Nitrite Urine Bilirubin Urine Urobilinogen Ur Leukocyte Esterase Urine WBC (Auto) Urine RBC (Auto) Ur Epithelial Cells Urine Bacteria Urine Mucus Urine Yeast Valproic Acid RPR Titer HIV 1&2 Antibody Screen HIV P24 Antigen 04/26/18 04/26/18 04/26/18 11:36 16:20 20:48 WBC RBC Hgb Hct MCV MCH MCHC RDW Plt Count MPV Sodium Potassium Chloride Carbon Dioxide Anion Gap BUN Creatinine Creat Clearance w eGFR POC Glucometer 436 273 284 Random Glucose Calcium Total Bilirubin AST ALT Alkaline Phosphatase Total Protein Albumin Urine Color Urine Appearance Urine pH Ur Specific [place] Urine Protein Urine Glucose (UA) Urine Ketones Urine Blood Urine Nitrite Urine Bilirubin Urine Urobilinogen Ur Leukocyte Esterase Urine WBC (Auto) Urine RBC (Auto) Ur Epithelial Cells Urine Bacteria Urine Mucus Urine Yeast Valproic Acid RPR Titer HIV 1&2 Antibody Screen HIV P24 Antigen 04/27/18 04/27/18 04/27/18 06:11 11:10 16:54 WBC RBC Hgb Hct MCV MCH MCHC RDW Plt Count MPV Sodium Potassium Chloride Carbon Dioxide Anion Gap BUN Creatinine Creat Clearance w eGFR POC Glucometer 286 368 398 Random Glucose Calcium Total Bilirubin AST ALT Alkaline Phosphatase Total Protein Albumin Urine Color Urine Appearance Urine pH Ur Specific [place] Urine Protein Urine Glucose (UA) Urine Ketones Urine Blood Urine Nitrite Urine Bilirubin Urine Urobilinogen Ur Leukocyte Esterase Urine WBC (Auto) Urine RBC (Auto) Ur Epithelial Cells Urine Bacteria Urine Mucus Urine Yeast Valproic Acid RPR Titer HIV 1&2 Antibody Screen HIV P24 Antigen 04/27/18 04/28/18 22:11 05:33 WBC RBC Hgb Hct MCV MCH MCHC RDW Plt Count MPV Sodium Potassium Chloride Carbon Dioxide Anion Gap BUN Creatinine Creat Clearance w eGFR POC Glucometer 441 297 Random Glucose Calcium Total Bilirubin AST ALT Alkaline Phosphatase Total Protein Albumin Urine Color Urine Appearance Urine pH Ur Specific [place] Urine Protein Urine Glucose (UA) Urine Ketones Urine Blood Urine Nitrite Urine Bilirubin Urine Urobilinogen Ur Leukocyte Esterase Urine WBC (Auto) Urine RBC (Auto) Ur Epithelial Cells Urine Bacteria Urine Mucus Urine Yeast Valproic Acid RPR Titer HIV 1&2 Antibody Screen HIV P24 Antigen Labs reviewed: UA 1+ blood (encouraged PO water hydration, follow up with PCP within 1-2 weeks) - Treatment Hospital Course: Detox Protocol Followed, Detoxed Safely, Responded well, Discharged Condition Good - Medication Discharge Medications: Ambulatory Orders Insulin (Novolog) [Novolog Flexpen -] 0 units SQ TID PRN 06/22/17 Divalproex [Depakote -] 500 mg PO BID #60 tablet.ec 12/10/17 Quetiapine Fumarate [Seroquel -] 200 mg PO HS #30 tab 12/10/17 Sertraline HCl [Zoloft -] 100 mg PO HS #30 tablet 12/10/17 Quetiapine Fumarate [Seroquel] 100 mg PO DAILY 03/11/18 Albuterol Sulfate Inhaler - [Ventolin HFA Inhaler -] 2 inh PO Q4H PRN #1 inhaler 03/14/18 Aspirin [ASA -] 81 mg PO DAILY #30 tab.chew 03/14/18 Fluticasone Propionate [Flovent Diskus] 1 puff IH BID #1 blst.w.dev 03/14/18 Levothyroxine [Synthroid -] 25 mcg PO DAILY #30 mcg 03/14/18 Nifedipine ER [Procardia XL -] 90 mg PO DAILY #30 tab.er.24 03/14/18 Insulin (Levemir) [Levemir Vial] 45 units SQ HS 04/24/18 - Diagnosis (1) Type 2 diabetes mellitus with hyperglycemia Current Visit: Yes Status: Chronic (2) Alcohol dependence with uncomplicated withdrawal Current Visit: Yes Status: Acute (3) Cocaine dependence Current Visit: Yes Status: Chronic Qualifiers: Substance use status: uncomplicated Qualified Code(s): F14.20 - Cocaine dependence, uncomplicated (4) Nicotine dependence Current Visit: Yes Status: Chronic Qualifiers: Nicotine product type: cigarettes Substance use status: in withdrawal Qualified Code(s): F17.213 - Nicotine dependence, cigarettes, with withdrawal (5) Asthma Current Visit: Yes Status: Chronic Qualifiers: Asthma severity: unspecified severity Asthma persistence: unspecified Asthma complication type: unspecified Qualified Code(s): J45.909 - Unspecified asthma, uncomplicated (6) History of hypothyroidism Current Visit: Yes Status: Chronic (7) Hypertension Current Visit: Yes Status: Chronic Qualifiers: Hypertension type: essential hypertension Qualified Code(s): I10 - Essential (primary) hypertension (8) Seizure disorder Current Visit: Yes Status: Chronic (9) Hypercholesteremia Current Visit: Yes Status: Chronic (10) Microscopic hematuria Current Visit: Yes Status: Acute - AMA Did Patient Leave Against Medical Advice: No (F/U with PCP within 1-2 weeks)
== END 2018-04-28 12:10 | disposition home or self-care (01) | DRG 774 ==
LOC: YASAS 10:31 → Y3N 14:01
PROVIDERS: ADMIT Surgery; ATTEND Surgery
PROC: HZ2ZZZZ Detoxification Services for Substance Abuse Treatment (ICD-10-PCS; principal; 2018-04-24)
DX: F10.230 Alcohol dependence with withdrawal, uncomplicated (principal); F14.20 Cocaine dependence, uncomplicated; F17.213 Nicotine dependence, cigarettes, with withdrawal; F20.0 Paranoid schizophrenia; G40.909 Epilepsy, unspecified, not intractable, without status epilepticus; I10 Essential (primary) hypertension; E11.9 Type 2 diabetes mellitus without complications; J45.909 Unspecified asthma, uncomplicated; E03.9 Hypothyroidism, unspecified; E78.00 Pure hypercholesterolemia, unspecified; D50.9 Iron deficiency anemia, unspecified; M25.551 Pain in right hip; R82.90 Unspecified abnormal findings in urine; N48.1 Balanitis; R26.2 Difficulty in walking, not elsewhere classified; Z99.89 Dependence on other enabling machines and devices; Z79.4 Long term (current) use of insulin; Z86.69 Personal history of other diseases of the nervous system and sense organs; Z91.013 Allergy to seafood; Z88.0 Allergy status to penicillin; Z88.8 Allergy status to other drugs, medicaments and biological substances; Z91.5 Personal history of self-harm
CPT/HCPCS: 36415; 80053; 80164; 81003; 81015; 82962; 85027; 86593; 87086; 87389; 93005; 93010